=== PATIENT | female | born 1950 | race African-American/Black ===

== ENCOUNTER 2016-04-27 11:53 | Inpatient (IN) | payer MEDICARE, MEDICAID ==
[2016-04-27] MEDS ORDERED: NORMAL SALINE 1000 ML 1,000 ML IV ONE ×2 (12:36→15:04)
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
[2016-04-27 12:55] LABS: HEMATOCRIT 30.7 % (36.0-47.0); HEMOGLOBIN 9.6 g/dL (12.0-15.5); HGB HCT DIFFERENCE -1.9; MEAN CORPUSCULAR HEMOGLOBIN 22.1 pg (27.0-33.4); MEAN CORPUSCULAR HGB CONC 31.2 g/dL (32.0-36.0); MEAN CORPUSCULAR VOLUME 71 fl (80-97); RED BLOOD COUNT 4.34 10^6/uL (3.72-5.28); RED CELL DISTRIBUTION WIDTH 20.3 % (11.5-14.0); WHITE BLOOD COUNT 20.4 10^3/uL (4.0-10.5)
[2016-04-27 13:18] LABS: ALANINE AMINOTRANSFERASE 27 U/L (9-52); ALBUMIN 3.1 g/dL (3.5-5.0); ALKALINE PHOSPHATASE 179 U/L (38-126); ANION GAP 13 (5-19); ASPARTATE AMINO TRANSFERASE 28 U/L (14-36); BILIRUBIN,TOTAL 0.6 mg/dL (0.2-1.3); BLOOD UREA NITROGEN 19 mg/dL (7-20); CALCIUM 8.9 mg/dL (8.4-10.2); CARBON DIOXIDE 24 mmol/L (22-30); CHLORIDE 108 mmol/L (98-107); CREATINE KINASE 67 U/L (30-135); CREATININE RESULT 0.91 mg/dL (0.52-1.25); GLUCOSE 114 mg/dL (75-110); LIPASE 84.4 U/L (23-300); POTASSIUM 3.4 mmol/L (3.6-5.0); SODIUM 144.8 mmol/L (137-145); TOTAL PROTEIN 6.2 g/dL (6.3-8.2)
[2016-04-27 13:22] LABS: BAND NEUTROPHILS % (MANUAL) 1 % (3-5); BASOPHILS % (MANUAL) 0 % (0-2); EOSINOPHILS % (MANUAL) 0 % (0-6); LYMPHOCYTES % (MANUAL) 8 % (13-45); TOTAL CELLS COUNTED 100
[2016-04-27 13:25] LABS: ANISOCYTOSIS 1+; BURR CELLS SLIGHT; HYPOCHROMASIA 1+; MICROCYTOSIS 1+; OVALOCYTES SLIGHT; POIKILOCYTOSIS SLIGHT; POLYCHROMASIA SLIGHT; TARGET CELLS SLIGHT
[2016-04-27 13:26] LABS: CREATINE KINASE MB < 0.22 ng/mL (<4.55); TROPONIN I < 0.012 ng/mL
[2016-04-27] MEDS ORDERED: PIPERACILLIN/TAZOBACTAM 3.375 GM VIAL IV ONE ×2 (14:05→21:04)
[2016-04-27] MEDS ORDERED: POTASSIUM CHLORIDE 10 MEQ TABLET.SA PO ONE (14:28)
[2016-04-27 15:26] LABS: APPEARANCE,URINE CLOUDY; BILIRUBIN,URINE NEGATIVE (NEGATIVE); GLUCOSE, URINE NEGATIVE (NEGATIVE); KETONES,URINE TRACE mg/dL (NEGATIVE); LEUKOCYTE ESTERASE,URINE MODERATE (NEGATIVE); NITRITE,URINE POSITIVE (NEGATIVE); PROTEIN,URINE 30 mg/dL (NEGATIVE); URINE SPECIFIC GRAVITY 1.025
[2016-04-27] MEDS ORDERED: VANCOMYCIN HCL INJ 1000 MG VIAL IV ONE (15:48)
[2016-04-27] MEDS ORDERED: NORMAL SALINE 1000 ML 500 ML IV ONE (15:49)
[2016-04-27] MEDS ORDERED: MAG HYDROX/AL HYDROX/SIMETH SUSP 30 ML UDCUP PO PRN (16:30)
[2016-04-27] MEDS ORDERED: NORMAL SALINE 1000 ML 2,500 ML IV ONE (16:36)
[2016-04-27] MEDS ORDERED: IBUPROFEN 600 MG TABLET PO ONE (16:36)
[2016-04-27] MEDS ORDERED: PHARMACY COMMUNICATION ORDER MC NR (16:45)
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
[2016-04-27] MEDS: OXYBUTYNIN CHLORIDE 5 MG TABLET PO SCH (17:51)
[2016-04-27] MEDS: NORMAL SALINE 1000 ML 1,000 ML IV PRN (17:59)
[2016-04-27] MEDS: DOCUSATE SODIUM 100 MG CAPSULE PO SCH (18:01)
[2016-04-27 20:09] LABS: PARTIAL THROMBOPLASTIN TIME > 235.0 SEC (23.5-35.8); PROTHROMBIN TIME > 120.0 SEC (11.4-15.4)
[2016-04-27] MEDS: ONDANSETRON HCL INJ/PF 4 MG/2 ML SDV IV PRN (21:03)
[2016-04-27] MEDS: PIPERACILLIN SODIUM/TAZOBACTAM 3.375 GM in NORMAL SALINE 100 ML IV SCH (21:33)
[2016-04-27] MEDS ORDERED: WARFARIN SODIUM 5 MG TABLET PO SCH (22:00)
[2016-04-27] MEDS ORDERED: NORMAL SALINE 1000 ML 2,000 ML IV ONE (23:45)
[2016-04-28] MEDS: PIPERACILLIN SODIUM/TAZOBACTAM 3.375 GM in NORMAL SALINE 100 ML IV SCH (02:21)
[2016-04-28] MEDS: NORMAL SALINE 1000 ML 1,000 ML IV PRN ×3 (02:22→20:36)
[2016-04-28 04:59] LABS: ANION GAP 11 (5-19); BLOOD UREA NITROGEN 21 mg/dL (7-20); CALCIUM 7.3 mg/dL (8.4-10.2); CARBON DIOXIDE 19 mmol/L (22-30); CHLORIDE 116 mmol/L (98-107); CREATININE RESULT 1.17 mg/dL (0.52-1.25); GLUCOSE 119 mg/dL (75-110); SODIUM 145.8 mmol/L (137-145)
[2016-04-28 05:04] LABS: HEMATOCRIT 23.6 % (36.0-47.0); MEAN CORPUSCULAR HEMOGLOBIN 22.1 pg (27.0-33.4); MEAN CORPUSCULAR HGB CONC 30.7 g/dL (32.0-36.0); MEAN CORPUSCULAR VOLUME 72 fl (80-97); RED BLOOD COUNT 3.28 10^6/uL (3.72-5.28); RED CELL DISTRIBUTION WIDTH 19.8 % (11.5-14.0)
[2016-04-28 05:22] LABS: BASOPHILS % (MANUAL) 0 % (0-2); EOSINOPHILS % (MANUAL) 0 % (0-6); LYMPHOCYTES % (MANUAL) 1 % (13-45); TOTAL CELLS COUNTED 100
[2016-04-28 05:25] LABS: ANISOCYTOSIS 2+; HYPOCHROMASIA 1+; MICROCYTOSIS 1+; OVALOCYTES 1+; TOXIC GRANULATION SLIGHT; TOXIC VACUOLATION PRESENT
[2016-04-28 05:30] LABS: BAND NEUTROPHILS % (MANUAL) 13 % (3-5)
[2016-04-28 05:37] LABS: WHITE BLOOD COUNT 30.1 10^3/uL (4.0-10.5)
[2016-04-28 05:38] LABS: HEMOGLOBIN 7.2 g/dL (12.0-15.5); PROTHROMBIN TIME > 120.0 SEC (11.4-15.4)
[2016-04-28] MEDS ORDERED: NORMAL SALINE 1000 ML 1,000 ML IV SCH (06:00)
[2016-04-28] MEDS ORDERED: DEXTROSE 5%-WATER 250 ML with NOREPINEPHRINE BITARTRATE 4 MG IV PRN ×4 (06:01→07:34)
[2016-04-28] MEDS ORDERED: NOREPINEPHRINE BITARTRATE INJ/PF 4 MG/4 ML SDV IV ONE (06:22)
[2016-04-28] MEDS ORDERED: PHYTONADIONE INJ 10 MG/1 ML AMPULE SUBCUT ONE (07:31)
[2016-04-28] MEDS ORDERED: VANCOMYCIN HCL 0 MG in DEXTROSE 5%-WATER 250 ML IV NR (07:45)
[2016-04-28] MEDS ORDERED: NORMAL SALINE 250 ML IV PRN ×2 (07:54)
[2016-04-28] MEDS ORDERED: NORMAL SALINE 1000 ML 2,000 ML IV ONE (07:55)
[2016-04-28] MEDS: ONDANSETRON 4 MG TAB.RAPDIS PO PRN ×2 (08:14→20:34)
--- NOTE | 2016-04-28 08:24 | EKG REPORT ---
SEVERITY:- BORDERLINE ECG - SINUS TACHYCARDIA ATRIAL PREMATURE COMPLEX BORDERLINE PROLONGED QT INTERVAL : Confirmed by: Trevor Phillip 28-Apr-2016 08:23:39
[2016-04-28] MEDS: OXYBUTYNIN CHLORIDE 5 MG TABLET PO SCH ×2 (09:45→17:49)
[2016-04-28] MEDS: DOCUSATE SODIUM 100 MG CAPSULE PO SCH ×2 (09:45→17:49)
[2016-04-28] MEDS: BACLOFEN 10 MG TABLET PO SCH (09:45)
[2016-04-28] MEDS: ALBUMIN HUMAN 50 ML IV SCH ×4 (09:46→13:18)
[2016-04-28] MEDS ORDERED: DILTIAZEM HCL 120 MG CAP.SR.24H PO SCH (10:00)
[2016-04-28] MEDS: DORIPENEM 500 MG in NORMAL SALINE 100 ML IV SCH ×2 (10:20→17:49)
--- NOTE | 2016-04-28 11:40 | Operative Report ---
Operative Report DATE OF SURGERY: 04/28/16 Operative Report: PROCEDURE DESCRIPTION: After obtaining an informed consent, the patient was placed in the Trendelenburg position with the head turned 30 degrees away from the insertion site. The skin was thoroughly prepped with chlorhexidine and allowed to dry. I was shielded with a hairnet, facemask, sterile gown, and with sterile gloves. The right neck area was prepped and draped with a large disposable sterile shield provided in the pre-manufactured kit. The skin and subcutaneous tissue superficial to the right internal jugular vein was anesthetized using 1% lidocaine. Internal jugular vein was identified on ultrasound from angle of the mandible down to the supraclavicular fossa using linear ultrasound probe in the transverse orientation. The carotid artery was identified and avoided utilizing color flow. The internal jugular vein is then placed in the center of the ultrasound field and compressed for patency. Movement artifact was identified as the needle was advanced through the skin and advanced towards the vessel. The visualization of the vascular needle entry into the lumen was achieved as the blood was noted to flush back into the syringe. The needle was then held in place while the guidewire was advanced. The needle was then removed. An ultrasound image of the guidewire inside the vein showed appropriate insertion. Skin dilator was advanced over the guidewire and removed. The triple-lumen catheter was inserted over the guidewire into the proper position and the guidewire was removed and discarded. All ports were aspirated which showed good blood return and then carefully flushed with normal saline. The catheter was stabilized and sutured into skin with 2-0 silk suture and sterile Bioclusive dressing was placed over the catheter including the insertion site. The patient tolerated the procedure. Chest x-ray is ordered for position confirmation. PREOPERATIVE DIAGNOSIS: 1sepsis due to urinary tract infection. 2difficult IV access. POSTOPERATIVE DIAGNOSIS: Same OPERATION: Right internal jugular triple-lumen central line insertion, ultrasound-guided. SURGEON: SUDEEP EDWARDS ANESTHESIA: Local TISSUE REMOVED OR ALTERED: None COMPLICATIONS: None ESTIMATED BLOOD LOSS: 5 mL INTRAOPERATIVE FINDINGS: See detailed report
[2016-04-28] MEDS: DILTIAZEM HCL 30 MG TABLET PO SCH ×3 (13:17→22:49)
[2016-04-28] MEDS: VANCOMYCIN HCL 1,250 MG in DEXTROSE 5%-WATER 250 ML IV SCH (13:17)
--- NOTE | 2016-04-28 17:02 | PDOC PROGRESS REPORT ---
Subjective Progress Note for:: 04/28/16 Subjective:: Patient transition to the ICU for need for pressors. Patient denies chest pain , shortness of breath, abdominal pain, nausea, vomiting, fevers, chills, diarrhea, constipation, headache, new onset weakness. Physical Exam Vital Signs: Temp Pulse Resp BP Pulse Ox 98.0 F 90 20 86/48 L 100 04/28/16 03:24 04/28/16 03:24 04/28/16 03:24 04/28/16 03:24 04/28/16 03:24 Intake & Output 04/27/16 04/28/16 04/29/16 06:59 06:59 06:59 Intake Total 4655 Output Total 575 Balance 4080 Weight 91.8 kg Exam: General: Awake alert and orientedx3, no acute respiratory distress HEENT: AT/NC, PERRL, EOMI, oropharynx is moist, pink, no scleral icterus, no conjunctival injection Neck: No JVD, trachea midline Chest: Clear to auscultation bilaterally, no wheezes rhonchi or rales CV: Regular rate and rhythm, normal S1 and S2, no murmur, rub, or gallop Abdomen: Soft, nontender to palpation, nondistended, active bowel sounds; no rebound, rigidity, or guarding Extremities: No cyanosis, clubbing or edema Neuro: Cranial nerves II through XII are grossly intact without focal deficits; awake alert and oriented x3 Psych: Normal mood and affect Results Laboratory Results: 04/28/16 04:13 04/28/16 04:13 04/28/16 04/28/16 04:13 04:13 WBC 30.1 H* RBC 3.28 L Hgb 7.2 L D Hct 23.6 L MCV 72 L MCH 22.1 L MCHC 30.7 L RDW 19.8 H Plt Count 315 Seg Neutrophils % Not Reportable Lymphocytes % Not Reportable Monocytes % Not Reportable Eosinophils % Not Reportable Basophils % Not Reportable Absolute Neutrophils Not Reportable Absolute Lymphocytes Not Reportable Absolute Monocytes Not Reportable Absolute Eosinophils Not Reportable Absolute Basophils Not Reportable Sodium 145.8 H Potassium 4.0 Chloride 116 H Carbon Dioxide 19 L Anion Gap 11 BUN 21 H Creatinine 1.17 Est GFR ( Amer) 56 L Est GFR (Non-Af Amer) 46 L Glucose 119 H Calcium 7.3 L Impressions: Chest X-Ray 04/28/16 00:00 IMPRESSION: NO ACUTE RADIOGRAPHIC FINDING IN THE CHEST. Assessment & Plan - Diagnosis (1) Septic shock Is this a current diagnosis for this admission?: YesPlan: Patient has briefly required levophed today for her. Will give patient additional IV fluids and blood which will likely help her. We'll temporize with albumin. (2) Coagulopathy Is this a current diagnosis for this admission?: YesPlan: We'll send FDP and fibrinogen as well as LDH and haptoglobin to workup possible DIC. Give patient subcutaneous vitamin K. Will occult blood her stool. Transfuse patient 1 unit of packed red blood cells and type and screen. (3) Complicated UTI (urinary tract infection) Is this a current diagnosis for this admission?: YesPlan: Patient has urinary tract infection secondary to chronic indwelling suprapubic catheter. Based on previous sensitivities, will empirically start patient on Doribax and vancomycin. Patient with gram-negative rods in the urine and blood. (4) Atrial fibrillation Qualifiers: Atrial fibrillation type: paroxysmal Qualified Code(s): I48.0 - Paroxysmal atrial fibrillation Is this a current diagnosis for this admission?: YesPlan: Currently in sinus rhythm. Continue diltiazem and warfarin. (5) Chronic anticoagulation Is this a current diagnosis for this admission?: YesPlan: Hold warfarin secondary to coagulopathy (6) Hypertension Is this a current diagnosis for this admission?: NoPlan: Currently hypotensive. (7) Iron deficiency anemia Is this a current diagnosis for this admission?: YesPlan: Patient's anemia secondary to iron deficiency, anemia chronic disease, and currently also to delutional anemia. Will give patient 1 unit of packed red blood cells as her hemoglobin is currently below 8. (8) Paraplegia Is this a current diagnosis for this admission?: Yes (9) Sacral decubitus ulcer, stage IV Is this a current diagnosis for this admission?: Yes (10) Full code status Is this a current diagnosis for this admission?: Yes - Time Critical Time spent with patient: 35 or more minutes Medications reviewed and adjusted accordingly: Yes
[2016-04-28] MEDS ORDERED: FUROSEMIDE 20 MG TABLET PO ONE (18:42)
[2016-04-28] MEDS ORDERED: SILVER SULFADIAZINE 1% CREAM 25 GM TP ONE (19:15)
[2016-04-28] MEDS: NORMAL SALINE INJ/PF 0.9% 10 ML SDV IV PRN (20:44)
[2016-04-28 21:39] LABS: HEMATOCRIT 22.1 % (36.0-47.0); HGB HCT DIFFERENCE -0.5; MEAN CORPUSCULAR HEMOGLOBIN 23.8 pg (27.0-33.4); MEAN CORPUSCULAR HGB CONC 32.5 g/dL (32.0-36.0); MEAN CORPUSCULAR VOLUME 73 fl (80-97); RED BLOOD COUNT 3.02 10^6/uL (3.72-5.28); RED CELL DISTRIBUTION WIDTH 20.5 % (11.5-14.0); WHITE BLOOD COUNT 20.7 10^3/uL (4.0-10.5)
[2016-04-28 22:17] LABS: HEMOGLOBIN 7.2 g/dL (12.0-15.5)
[2016-04-29] MEDS ORDERED: DILTIAZEM HCL INJ 25 MG/5 ML VIAL ONE (00:07)
[2016-04-29] MEDS: DILTIAZEM HCL 30 MG TABLET PO SCH ×3 (00:10→18:43)
[2016-04-29] MEDS: NORMAL SALINE 1000 ML 1,000 ML IV PRN ×2 (00:11→23:10)
[2016-04-29] MEDS: ACETAMINOPHEN 325 MG TABLET PO PRN ×2 (00:18→20:03)
[2016-04-29] MEDS ORDERED: DILTIAZEM HCL INJ 25 MG/5 ML VIAL IV ONE (00:45)
[2016-04-29] MEDS ORDERED: DILTIAZEM HCL 30 MG TABLET PO ONE (00:45)
[2016-04-29] MEDS: DORIPENEM 500 MG in NORMAL SALINE 100 ML IV SCH ×3 (01:39→18:55)
[2016-04-29] MEDS: NORMAL SALINE INJ/PF 0.9% 10 ML SDV IV PRN (06:01)
[2016-04-29 06:46] LABS: APPEARANCE,URINE TURBID; BILIRUBIN,URINE NEGATIVE (NEGATIVE); GLUCOSE, URINE NEGATIVE (NEGATIVE); KETONES,URINE NEGATIVE (NEGATIVE); LEUKOCYTE ESTERASE,URINE LARGE (NEGATIVE); NITRITE,URINE NEGATIVE (NEGATIVE); PROTEIN,URINE 100 mg/dL (NEGATIVE); URINE SPECIFIC GRAVITY 1.014
[2016-04-29 06:48] LABS: ABSOLUTE LYMPHOCYTES (AUTO) 1.5 10^3/uL (0.5-4.7); ABSOLUTE MONOCYTES (AUTO) 0.8 10^3/uL (0.1-1.4); ABSOLUTE NEUT (AUTO) 13.1 10^3/uL (1.7-8.2); BASOPHILS % (AUTO) 0.2 % (0-2); EOSINOPHILS % (AUTO) 0.3 % (0-6); HEMATOCRIT 19.4 % (36.0-47.0); HGB HCT DIFFERENCE -0.8; LYMPHOCYTES % (AUTO) 9.8 % (13-45); MEAN CORPUSCULAR HGB CONC 31.9 g/dL (32.0-36.0); MEAN CORPUSCULAR VOLUME 72 fl (80-97); MONOCYTES % (AUTO) 5.4 % (3-13); RED CELL DISTRIBUTION WIDTH 20.5 % (11.5-14.0); SEGMENTED NEUTROPHILS % (AUTO) 84.3 % (42-78); WHITE BLOOD COUNT 15.5 10^3/uL (4.0-10.5)
[2016-04-29 06:50] LABS: HEMOGLOBIN 6.2 g/dL (12.0-15.5)
[2016-04-29 07:19] LABS: PROTHROMBIN TIME > 120.0 SEC (11.4-15.4)
[2016-04-29 07:22] LABS: ANION GAP 10 (5-19); BLOOD UREA NITROGEN 21 mg/dL (7-20); CALCIUM 7.9 mg/dL (8.4-10.2); CARBON DIOXIDE 18 mmol/L (22-30); CHLORIDE 119 mmol/L (98-107); CREATININE RESULT 0.89 mg/dL (0.52-1.25); GLUCOSE 93 mg/dL (75-110); SODIUM 146.5 mmol/L (137-145)
[2016-04-29 07:27] LABS: POTASSIUM 4.1 mmol/L (3.6-5.0)
[2016-04-29] MEDS ORDERED: PHYTONADIONE INJ 10 MG/1 ML AMPULE SUBCUT ONE (08:19)
[2016-04-29] MEDS ORDERED: FUROSEMIDE INJ/PF 20 MG/2 ML SDV IV PRN (08:20)
[2016-04-29] MEDS: ACETIC ACID 3% SOLN 473 ML TOP SCH (10:26)
[2016-04-29] MEDS: OXYBUTYNIN CHLORIDE 5 MG TABLET PO SCH ×2 (10:26→18:43)
[2016-04-29] MEDS: BACLOFEN 10 MG TABLET PO SCH (10:26)
[2016-04-29] MEDS: DOCUSATE SODIUM 100 MG CAPSULE PO SCH ×2 (10:27→18:43)
[2016-04-29] MEDS: SILVER SULFADIAZINE 1% CREAM 25 GM TP SCH (10:27)
[2016-04-29] MEDS: VANCOMYCIN HCL 1,250 MG in DEXTROSE 5%-WATER 250 ML IV SCH (12:36)
[2016-04-29] MEDS ORDERED: BISACODYL 10 MG SUPP.RECT PR PRN (14:14)
[2016-04-29] MEDS ORDERED: BISACODYL 10 MG SUPP.RECT PR ONE (14:14)
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
[2016-04-29 17:04] LABS: ABSOLUTE EOSINOPHILS # (AUTO) 0.1 10^3/uL (0.0-0.6); ABSOLUTE NEUT (AUTO) 13.1 10^3/uL (1.7-8.2); WHITE BLOOD COUNT 15.5 10^3/uL (4.0-10.5)
[2016-04-29 17:21] LABS: ABSOLUTE BASOPHILS # (AUTO) 0.1 10^3/uL (0.0-0.2); ABSOLUTE LYMPHOCYTES (AUTO) 1.5 10^3/uL (0.5-4.7); ABSOLUTE MONOCYTES (AUTO) 0.7 10^3/uL (0.1-1.4); BASOPHILS % (AUTO) 0.5 % (0-2); EOSINOPHILS % (AUTO) 0.8 % (0-6); HGB HCT DIFFERENCE -0.3; LYMPHOCYTES % (AUTO) 9.5 % (13-45); MEAN CORPUSCULAR HEMOGLOBIN 25.1 pg (27.0-33.4); MEAN CORPUSCULAR HGB CONC 33.2 g/dL (32.0-36.0); MONOCYTES % (AUTO) 4.4 % (3-13); RED BLOOD COUNT 3.56 10^6/uL (3.72-5.28); RED CELL DISTRIBUTION WIDTH 21.6 % (11.5-14.0); SEGMENTED NEUTROPHILS % (AUTO) 84.8 % (42-78)
[2016-04-29 17:26] LABS: HEMOGLOBIN 8.9 g/dL (12.0-15.5)
[2016-04-29 17:27] LABS: MEAN CORPUSCULAR VOLUME 76 fl (80-97)
[2016-04-29] MEDS: METOPROLOL TARTRATE PF/INJ 5 MG/5 ML SDV IV PRN (18:55)
[2016-04-30] MEDS: DILTIAZEM HCL 30 MG TABLET PO SCH ×4 (01:14→17:20)
[2016-04-30] MEDS: DORIPENEM 500 MG in NORMAL SALINE 100 ML IV SCH (02:42)
[2016-04-30 07:15] LABS: ABSOLUTE BASOPHILS # (AUTO) 0.1 10^3/uL (0.0-0.2); ABSOLUTE EOSINOPHILS # (AUTO) 0.1 10^3/uL (0.0-0.6); ABSOLUTE LYMPHOCYTES (AUTO) 1.3 10^3/uL (0.5-4.7); ABSOLUTE MONOCYTES (AUTO) 0.8 10^3/uL (0.1-1.4); ABSOLUTE NEUT (AUTO) 9.7 10^3/uL (1.7-8.2); BASOPHILS % (AUTO) 0.6 % (0-2); EOSINOPHILS % (AUTO) 0.8 % (0-6); HEMATOCRIT 24.7 % (36.0-47.0); HEMOGLOBIN 8.3 g/dL (12.0-15.5); HGB HCT DIFFERENCE 0.2; LYMPHOCYTES % (AUTO) 11.2 % (13-45); MEAN CORPUSCULAR HEMOGLOBIN 25.2 pg (27.0-33.4); MEAN CORPUSCULAR HGB CONC 33.5 g/dL (32.0-36.0); MEAN CORPUSCULAR VOLUME 75 fl (80-97); MONOCYTES % (AUTO) 6.5 % (3-13); RED CELL DISTRIBUTION WIDTH 22.2 % (11.5-14.0); SEGMENTED NEUTROPHILS % (AUTO) 80.9 % (42-78); WHITE BLOOD COUNT 11.9 10^3/uL (4.0-10.5)
[2016-04-30 07:51] LABS: ANION GAP 8 (5-19); BLOOD UREA NITROGEN 19 mg/dL (7-20); CALCIUM 8.3 mg/dL (8.4-10.2); CARBON DIOXIDE 20 mmol/L (22-30); CHLORIDE 117 mmol/L (98-107); CREATININE RESULT 0.63 mg/dL (0.52-1.25); GLUCOSE 73 mg/dL (75-110); POTASSIUM 4.2 mmol/L (3.6-5.0); SODIUM 145.1 mmol/L (137-145)
[2016-04-30] MEDS: OXYBUTYNIN CHLORIDE 5 MG TABLET PO SCH ×2 (09:26→17:20)
[2016-04-30] MEDS: LEVOFLOXACIN 750 MG TABLET PO SCH (09:26)
[2016-04-30] MEDS: BACLOFEN 10 MG TABLET PO SCH (09:26)
[2016-04-30] MEDS: DOCUSATE SODIUM 100 MG CAPSULE PO SCH ×2 (09:26→17:20)
--- NOTE | 2016-04-30 09:30 | PDOC PROGRESS REPORT ---
Subjective Progress Note for:: 04/30/16 Subjective:: Patient has no complaints. She has had no bleeding issues. Patient denies fever , chills, headache, new focal weakness, chest pain, shortness of breath, abdominal pain, nausea, vomiting, diarrhea, constipation. Physical Exam Vital Signs: Temp Pulse Resp BP Pulse Ox 98.2 F 94 20 118/57 L 97 04/30/16 03:40 04/30/16 07:00 04/30/16 03:40 04/30/16 03:40 04/30/16 03:40 Intake & Output 04/29/16 04/30/16 05/01/16 06:59 06:59 06:59 Intake Total 5487 2157 300 Output Total 1445 3100 Balance 4042 -943 300 Weight 92.1 kg 98.9 kg GENERAL: No acute distress HEENT: Conjunctiva clear, nonicteric, moist mucous membranes, no JVD, midline trachea RESPIRATORY: Clear to auscultation bilaterally, no wheezes, no rhonchi CARDIAC: Irregularly irregular ABDOMEN: Soft, nondistended, nontender, positive bowel sounds, no rebound, no guarding. Suprapubic catheter EXTREMETIES: No edema, cyanosis, clubbing NEUROLOGIC: Alert, oriented to person/place/time, CN's grossly intact, paraplegia SKIN: No rash, wounds PSYCH: Normal mood, normal affect Results Laboratory Results: 04/30/16 06:30 04/30/16 05:55 04/28/16 04/29/16 04/30/16 08:17 16:45 05:55 WBC 15.5 H RBC 3.56 L Hgb 8.9 L D Hct 27.0 L MCV 76 L D MCH 25.1 L MCHC 33.2 RDW 21.6 H Plt Count 199 Seg Neutrophils % 84.8 H Lymphocytes % 9.5 L Monocytes % 4.4 Eosinophils % 0.8 Basophils % 0.5 Absolute Neutrophils 13.1 H Absolute Lymphocytes 1.5 Absolute Monocytes 0.7 Absolute Eosinophils 0.1 Absolute Basophils 0.1 Sodium 145.1 H Potassium 4.2 Chloride 117 H Carbon Dioxide 20 L Anion Gap 8 BUN 19 Creatinine 0.63 Est GFR ( Amer) > 60 Est GFR (Non-Af Amer) > 60 Glucose 73 L Calcium 8.3 L Blood Type B POSITIVE Antibody Screen NEGATIVE 04/30/16 06:30 WBC 11.9 H RBC 3.30 L Hgb 8.3 L Hct 24.7 L MCV 75 L MCH 25.2 L MCHC 33.5 RDW 22.2 H Plt Count 198 Seg Neutrophils % 80.9 H Lymphocytes % 11.2 L Monocytes % 6.5 Eosinophils % 0.8 Basophils % 0.6 Absolute Neutrophils 9.7 H Absolute Lymphocytes 1.3 Absolute Monocytes 0.8 Absolute Eosinophils 0.1 Absolute Basophils 0.1 Sodium Potassium Chloride Carbon Dioxide Anion Gap BUN Creatinine Est GFR ( Amer) Est GFR (Non-Af Amer) Glucose Calcium Blood Type Antibody Screen Impressions: Chest X-Ray 04/28/16 11:23 IMPRESSION: Appropriate right IJ line. No complication. Stable chest otherwise. Assessment & Plan - Diagnosis (1) Sepsis Qualifiers: Sepsis type: sepsis due to unspecified organism Qualified Code(s): A41.9 - Sepsis, unspecified organism Is this a current diagnosis for this admission?: YesPlan: Patient is afebrile and hemodynamically stable. Continue to treat urinary tract infection/bacteremia. (2) Complicated UTI (urinary tract infection) Is this a current diagnosis for this admission?: YesPlan: Patient has urinary tract infection complicated by chronic suprapubic catheter. Blood cultures are growing Klebsiella sensitive to Levaquin. His continue doripenem and start patient on oral Levaquin. (3) Coagulopathy Is this a current diagnosis for this admission?: YesPlan: Continue to hold Coumadin. Repeat PT/INR today. (4) Atrial fibrillation Qualifiers: Atrial fibrillation type: paroxysmal Qualified Code(s): I48.0 - Paroxysmal atrial fibrillation Is this a current diagnosis for this admission?: YesPlan: Continue Cardizem. Continue to hold Coumadin secondary to coagulopathy. (5) Hypertension Is this a current diagnosis for this admission?: Yes (6) Iron deficiency anemia Is this a current diagnosis for this admission?: YesPlan: Patient is status post 3 units PRBC this admission. Continue to monitor H&H for stability in light of coagulopathy. (7) Sacral decubitus ulcer, stage IV Is this a current diagnosis for this admission?: Yes (8) Paraplegia Is this a current diagnosis for this admission?: YesPlan: Continue supportive care. Patient normally resides at home with home health services. (9) Full code status Is this a current diagnosis for this admission?: Yes - Time Time Spent with patient: 35 or more minutes Anticipated discharge: Home with Homehealth Within: within 72 hours
[2016-04-30] MEDS: ACETIC ACID 3% SOLN 473 ML TOP SCH (09:31)
[2016-04-30] MEDS: SILVER SULFADIAZINE 1% CREAM 25 GM TP SCH (09:31)
[2016-04-30] MEDS ORDERED: NORMAL SALINE 250 ML IV PRN ×2 (11:04)
--- NOTE | 2016-04-30 11:10 | Progress Note ---
Provider Note Provider Note: ADDENDUM: 1. Coagulopathy- Give FFP. Consult Dr. Partida. Holding Coumadin.
[2016-04-30 11:41] LABS: PATH REVIEW PATHOLOGIST REVIEWED
[2016-04-30] MEDS ORDERED: PHYTONADIONE INJ 10 MG/1 ML AMPULE SUBCUT ONE (17:30)
--- NOTE | 2016-04-30 18:33 | CONSULTATION REPORT E ---
Consultation Report NAME: JAMEL PHILLIPS : 1950 AGE: 66Y DATE: 04/30/2016 306 A TO: NILSA CRUZ M.D. FROM: ISABEL BRODY M.D. Requesting Physician REASON FOR REFERRAL: Coagulopathy. CONSULTATION REPORT: The patient is a 66-year-old woman who is a paraplegic, lives at home with the help of home health aide. She does have decubitus ulcers. She was admitted with possible septicemia; blood cultures had grown Klebsiella. She was started on antibiotics. She was on Coumadin at home. On admission, it was noted that her PT was excessively prolonged. PTT was also abnormal. Haptoglobin was elevated. Fibrinogen was normal. Her platelet count is normal. She does have some hematuria but no petechiae or noticeable blood in her stool. She had been on Coumadin for years, and her INR has been well regulated and controlled on her dose of Coumadin. PAST MEDICAL HISTORY: 1. History of atrial fibrillation on Coumadin. 2. Paraplegia. 3. High blood pressure. 4. Iron deficiency. 5. Sacral decubitus ulcer. PHYSICAL EXAMINATION: GENERAL: On exam, she is an elderly woman. She is not acutely ill looking. She is alert and oriented x3. DIAGNOSTIC TESTS: Her labs from 04/30/2016: White count 11.9; hemoglobin is 8.3; platelet count is 198. PT on admission was greater than 120, and her PTT was 235. Today, 04/30/2016, PTT remains elevated at 187.9; her PT is greater than 120. Her sodium 145, BUN 19, creatinine 0.6. LDH 814. Haptoglobin 274. Fibrinogen 520. FDP less than 10. IMPRESSION AND PLAN: The patient is a 66-year-old who presents in the setting of possible sepsis with excessively elevated PT and PTT in the setting of a normal fibrinogen and FDP. She has a coagulopathy. She had received vitamin K 10 mg on admission; it will be repeated today. In addition, she will require additional coagulation workup that the lab at [facility] may not be able to turn around in a timely fashion. Mixing studies would be the next test to do to rule out the presence of an inhibitor. It will be important to have this test done to assess her risk of bleeding vessels with cough, thrombosis. I explained the lab results to the patient. I explained that additional testing that will be required to figure out the abnormality causing the prolonged PT, PTT was not available locally and she would need to be transferred. This was discussed with the hospitalist. I thank you for this consultation and allowing me to be part of her care. DICTATING PHYSICIAN: NILSA CRUZ M.D. [id number] PHY#: [id number] ID: [id number] JOB#: [id number] ACCT: [id number] cc:NILSA CRUZ M.D. >
[2016-04-30 20:40] LABS: ABSOLUTE EOSINOPHILS # (AUTO) 0.1 10^3/uL (0.0-0.6); ABSOLUTE LYMPHOCYTES (AUTO) 1.1 10^3/uL (0.5-4.7); ABSOLUTE MONOCYTES (AUTO) 0.7 10^3/uL (0.1-1.4); ABSOLUTE NEUT (AUTO) 6.4 10^3/uL (1.7-8.2); BASOPHILS % (AUTO) 0.4 % (0-2); HEMATOCRIT 23.9 % (36.0-47.0); HGB HCT DIFFERENCE 0.1; LYMPHOCYTES % (AUTO) 13.6 % (13-45); MEAN CORPUSCULAR HEMOGLOBIN 25.4 pg (27.0-33.4); MEAN CORPUSCULAR HGB CONC 33.6 g/dL (32.0-36.0); MEAN CORPUSCULAR VOLUME 76 fl (80-97); MONOCYTES % (AUTO) 8.7 % (3-13); RED BLOOD COUNT 3.16 10^6/uL (3.72-5.28); RED CELL DISTRIBUTION WIDTH 21.9 % (11.5-14.0); SEGMENTED NEUTROPHILS % (AUTO) 76.3 % (42-78); WHITE BLOOD COUNT 8.4 10^3/uL (4.0-10.5)
[2016-05-01] MEDS: DILTIAZEM HCL 30 MG TABLET PO SCH ×2 (00:33→05:25)
[2016-05-01] MEDS: ACETAMINOPHEN 325 MG TABLET PO PRN ×2 (00:34→16:03)
[2016-05-01] MEDS: METOPROLOL TARTRATE PF/INJ 5 MG/5 ML SDV IV PRN ×3 (01:18→14:51)
[2016-05-01 07:46] LABS: ABSOLUTE BASOPHILS # (AUTO) 0.1 10^3/uL (0.0-0.2); ABSOLUTE EOSINOPHILS # (AUTO) 0.1 10^3/uL (0.0-0.6); ABSOLUTE LYMPHOCYTES (AUTO) 1.5 10^3/uL (0.5-4.7); ABSOLUTE MONOCYTES (AUTO) 1.1 10^3/uL (0.1-1.4); ABSOLUTE NEUT (AUTO) 5.1 10^3/uL (1.7-8.2); BASOPHILS % (AUTO) 0.7 % (0-2); EOSINOPHILS % (AUTO) 0.9 % (0-6); HEMATOCRIT 26.8 % (36.0-47.0); HEMOGLOBIN 8.9 g/dL (12.0-15.5); HGB HCT DIFFERENCE -0.1; LYMPHOCYTES % (AUTO) 18.9 % (13-45); MEAN CORPUSCULAR HEMOGLOBIN 25.3 pg (27.0-33.4); MEAN CORPUSCULAR HGB CONC 33.1 g/dL (32.0-36.0); MEAN CORPUSCULAR VOLUME 76 fl (80-97); RED BLOOD COUNT 3.51 10^6/uL (3.72-5.28); RED CELL DISTRIBUTION WIDTH 22.3 % (11.5-14.0); SEGMENTED NEUTROPHILS % (AUTO) 65.5 % (42-78); WHITE BLOOD COUNT 7.7 10^3/uL (4.0-10.5)
[2016-05-01 07:48] LABS: ANION GAP 12 (5-19); BLOOD UREA NITROGEN 12 mg/dL (7-20); CALCIUM 8.9 mg/dL (8.4-10.2); CARBON DIOXIDE 22 mmol/L (22-30); CHLORIDE 111 mmol/L (98-107); CREATININE RESULT 0.54 mg/dL (0.52-1.25); GLUCOSE 81 mg/dL (75-110); POTASSIUM 3.9 mmol/L (3.6-5.0); SODIUM 145.3 mmol/L (137-145)
[2016-05-01 08:21] LABS: PROTHROMBIN TIME 22.7 SEC (11.4-15.4)
[2016-05-01] MEDS: DOCUSATE SODIUM 100 MG CAPSULE PO SCH ×2 (09:20→17:30)
[2016-05-01] MEDS: BACLOFEN 10 MG TABLET PO SCH (09:20)
[2016-05-01] MEDS: LEVOFLOXACIN 750 MG TABLET PO SCH (09:20)
[2016-05-01] MEDS: OXYBUTYNIN CHLORIDE 5 MG TABLET PO SCH ×2 (09:20→17:30)
--- NOTE | 2016-05-01 10:19 | PDOC PROGRESS REPORT ---
Subjective Progress Note for:: 05/01/16 Subjective:: Patient has no complaints. She has had no bleeding issues. Patient denies fever , chills, headache, new focal weakness, chest pain, shortness of breath, abdominal pain, nausea, vomiting, diarrhea, constipation. Physical Exam Vital Signs: Temp Pulse Resp BP Pulse Ox 98.1 F 118 H 19 144/83 H 96 05/01/16 07:57 05/01/16 07:57 05/01/16 07:57 05/01/16 07:57 05/01/16 07:57 Intake & Output 04/30/16 05/01/16 05/02/16 06:59 06:59 06:59 Intake Total 3134 2870 Output Total 4300 4800 Balance -1166 -1930 Weight 98.9 kg 93.9 kg GENERAL: No acute distress HEENT: Conjunctiva clear, nonicteric, moist mucous membranes, no JVD, midline trachea RESPIRATORY: Clear to auscultation bilaterally, no wheezes, no rhonchi CARDIAC: Irregularly irregular ABDOMEN: Soft, nondistended, nontender, positive bowel sounds, no rebound, no guarding. Suprapubic catheter EXTREMETIES: No edema, cyanosis, clubbing NEUROLOGIC: Alert, oriented to person/place/time, CN's grossly intact, paraplegia SKIN: No rash, wounds PSYCH: Normal mood, normal affect Results Laboratory Results: 05/01/16 05:30 05/01/16 05:30 04/28/16 04/28/16 04/30/16 04:13 08:17 20:30 WBC 30.1 H* 8.4 RBC 3.28 L 3.16 L Hgb 7.2 L D 8.0 L Hct 23.6 L 23.9 L MCV 72 L 76 L MCH 22.1 L 25.4 L MCHC 30.7 L 33.6 RDW 19.8 H 21.9 H Plt Count 315 189 Seg Neutrophils % 76.3 Lymphocytes % 13.6 Monocytes % 8.7 Eosinophils % 1.0 Basophils % 0.4 Absolute Neutrophils 6.4 Absolute Lymphocytes 1.1 Absolute Monocytes 0.7 Absolute Eosinophils 0.1 Absolute Basophils 0.0 Sodium Potassium Chloride Carbon Dioxide Anion Gap BUN Creatinine Est GFR ( Amer) Est GFR (Non-Af Amer) Glucose Calcium Blood Type B POSITIVE Antibody Screen NEGATIVE 05/01/16 05/01/16 05:30 05:30 WBC 7.7 RBC 3.51 L Hgb 8.9 L Hct 26.8 L MCV 76 L MCH 25.3 L MCHC 33.1 RDW 22.3 H Plt Count 226 Seg Neutrophils % 65.5 Lymphocytes % 18.9 Monocytes % 14.0 H Eosinophils % 0.9 Basophils % 0.7 Absolute Neutrophils 5.1 Absolute Lymphocytes 1.5 Absolute Monocytes 1.1 Absolute Eosinophils 0.1 Absolute Basophils 0.1 Sodium 145.3 H Potassium 3.9 Chloride 111 H Carbon Dioxide 22 Anion Gap 12 BUN 12 Creatinine 0.54 Est GFR ( Amer) > 60 Est GFR (Non-Af Amer) > 60 Glucose 81 Calcium 8.9 Blood Type Antibody Screen 04/29/16 22:00 Nasophary (Mrsa Only) MRSA Surveillance Culture - Final NO MRSA RECOVERED Impressions: Chest X-Ray 04/28/16 11:23 IMPRESSION: Appropriate right IJ line. No complication. Stable chest otherwise. Assessment & Plan - Diagnosis (1) Sepsis Qualifiers: Sepsis type: sepsis due to unspecified organism Qualified Code(s): A41.9 - Sepsis, unspecified organism Is this a current diagnosis for this admission?: YesPlan: Patient is afebrile and hemodynamically stable. Continue to treat urinary tract infection/bacteremia. (2) Complicated UTI (urinary tract infection) Is this a current diagnosis for this admission?: YesPlan: Patient has urinary tract infection complicated by chronic suprapubic catheter. Blood cultures are growing Klebsiella sensitive to Levaquin. Continue Levaquin. (3) Coagulopathy Is this a current diagnosis for this admission?: YesPlan: Coumadin discontinued. Coagulopathy corrected with FFP and vitamin K. After a long discussion with patient regarding risk/benefit/alternative to Coumadin patient has decided not to resume Coumadin and to allow me to initiate anticoagulation with Eliquis instead. I think given the fact that she has recurrent urinary infections requiring her to be on and off antibiotics this may be a better option as it poses fewer drug-drug interactions. (4) Atrial fibrillation Qualifiers: Atrial fibrillation type: paroxysmal Qualified Code(s): I48.0 - Paroxysmal atrial fibrillation Is this a current diagnosis for this admission?: YesPlan: Discontinue Cardizem 30 mg IR. Start Cardizem CD 180 mg daily. Coumadin discontinued secondary to coagulopathy. Patient's echocardiogram last year shows no valvular heart disease. I will start patient on Eliquis 5 mg twice daily. (5) Hypertension Is this a current diagnosis for this admission?: Yes (6) Iron deficiency anemia Is this a current diagnosis for this admission?: YesPlan: Patient is status post 3 units PRBC this admission. Continue to monitor H&H for stability in light of coagulopathy/anticoagulation. (7) Sacral decubitus ulcer, stage IV Is this a current diagnosis for this admission?: Yes (8) Paraplegia Is this a current diagnosis for this admission?: YesPlan: Continue supportive care. Patient normally resides at home with home health services. (9) Full code status Is this a current diagnosis for this admission?: Yes - Time Time Spent with patient: 35 or more minutes
[2016-05-01] MEDS: SILVER SULFADIAZINE 1% CREAM 25 GM TP SCH ×2 (10:52→11:00)
[2016-05-01] MEDS: ACETIC ACID 3% SOLN 473 ML TOP SCH ×2 (10:52→11:00)
[2016-05-01] MEDS ORDERED: DILTIAZEM HCL 180 MG CAPSULE.CR PO ONE (11:00)
[2016-05-01 13:30] LABS: APPEARANCE,URINE CLEAR; BILIRUBIN,URINE NEGATIVE (NEGATIVE); GLUCOSE, URINE NEGATIVE (NEGATIVE); KETONES,URINE NEGATIVE (NEGATIVE); LEUKOCYTE ESTERASE,URINE SMALL (NEGATIVE); NITRITE,URINE NEGATIVE (NEGATIVE); PROTEIN,URINE 30 mg/dL (NEGATIVE); URINE SPECIFIC GRAVITY 1.012; UROBILINOGEN,URINE NEGATIVE mg/dL (<2.0)
[2016-05-01] MEDS: NORMAL SALINE INJ/PF 0.9% 10 ML SDV IV PRN (13:53)
[2016-05-01] MEDS: APIXABAN 5 MG TABLET PO SCH (17:30)
[2016-05-02] MEDS: ACETAMINOPHEN 325 MG TABLET PO PRN (01:10)
[2016-05-02] MEDS: METOPROLOL TARTRATE PF/INJ 5 MG/5 ML SDV IV PRN (01:10)
[2016-05-02 06:08] LABS: ABSOLUTE BASOPHILS # (AUTO) 0.1 10^3/uL (0.0-0.2); ABSOLUTE EOSINOPHILS # (AUTO) 0.1 10^3/uL (0.0-0.6); ABSOLUTE LYMPHOCYTES (AUTO) 1.7 10^3/uL (0.5-4.7); ABSOLUTE MONOCYTES (AUTO) 1.3 10^3/uL (0.1-1.4); ABSOLUTE NEUT (AUTO) 7.3 10^3/uL (1.7-8.2); BASOPHILS % (AUTO) 0.5 % (0-2); EOSINOPHILS % (AUTO) 0.6 % (0-6); HEMATOCRIT 25.5 % (36.0-47.0); HEMOGLOBIN 8.7 g/dL (12.0-15.5); HGB HCT DIFFERENCE 0.6; LYMPHOCYTES % (AUTO) 16.6 % (13-45); MEAN CORPUSCULAR HEMOGLOBIN 25.5 pg (27.0-33.4); MEAN CORPUSCULAR HGB CONC 33.9 g/dL (32.0-36.0); MEAN CORPUSCULAR VOLUME 75 fl (80-97); MONOCYTES % (AUTO) 12.4 % (3-13); RED BLOOD COUNT 3.39 10^6/uL (3.72-5.28); RED CELL DISTRIBUTION WIDTH 22.2 % (11.5-14.0); SEGMENTED NEUTROPHILS % (AUTO) 69.9 % (42-78); WHITE BLOOD COUNT 10.5 10^3/uL (4.0-10.5)
[2016-05-02 06:17] LABS: PARTIAL THROMBOPLASTIN TIME 53.2 SEC (23.5-35.8)
[2016-05-02 06:28] LABS: ANION GAP 10 (5-19); BLOOD UREA NITROGEN 13 mg/dL (7-20); CARBON DIOXIDE 24 mmol/L (22-30); CHLORIDE 110 mmol/L (98-107); CREATININE RESULT 0.56 mg/dL (0.52-1.25); GLUCOSE 95 mg/dL (75-110); POTASSIUM 3.5 mmol/L (3.6-5.0); SODIUM 144.2 mmol/L (137-145)
[2016-05-02] MEDS ORDERED: DILTIAZEM HCL INJ 25 MG/5 ML VIAL IV ONE (06:28)
[2016-05-02] MEDS ORDERED: POTASSI CL 20 MEQ/50 ML RIDER 50 ML IV ONE (07:23)
[2016-05-02] MEDS: BACLOFEN 10 MG TABLET PO SCH (09:34)
[2016-05-02] MEDS: DOCUSATE SODIUM 100 MG CAPSULE PO SCH ×2 (09:35→17:52)
[2016-05-02] MEDS: OXYBUTYNIN CHLORIDE 5 MG TABLET PO SCH ×2 (09:35→17:52)
[2016-05-02] MEDS: LEVOFLOXACIN 750 MG TABLET PO SCH (09:35)
[2016-05-02] MEDS: APIXABAN 5 MG TABLET PO SCH ×2 (09:35→17:52)
[2016-05-02] MEDS ORDERED: DILTIAZEM HCL 180 MG CAPSULE.CR PO SCH (10:00)
--- NOTE | 2016-05-02 14:05 | PDOC PROGRESS REPORT ---
Subjective Progress Note for:: 05/02/16 Subjective:: Patient has no complaints. She has had no bleeding issues. Overnight physician reports the patient had episode of atrial fibrillation with rapid ventricular response. He administered one-time dose of IV Cardizem. Patient's Cardizem CD has been increased to 180 mg daily. Patient denies fever, chills, headache, new focal weakness, chest pain, shortness of breath, abdominal pain, nausea, vomiting, diarrhea, constipation. Physical Exam Vital Signs: Temp Pulse Resp BP Pulse Ox 98.2 F 88 19 126/64 H 100 05/02/16 12:03 05/02/16 12:03 05/02/16 12:03 05/02/16 12:03 05/02/16 12:03 Intake & Output 05/01/16 05/02/16 05/03/16 06:59 06:59 06:59 Intake Total 2870 1719 237 Output Total 4800 1900 850 Balance -1930 -181 -613 Weight 93.9 kg 92 kg GENERAL: No acute distress HEENT: Conjunctiva clear, nonicteric, moist mucous membranes, no JVD, midline trachea RESPIRATORY: Clear to auscultation bilaterally, no wheezes, no rhonchi CARDIAC: Irregularly irregular ABDOMEN: Soft, nondistended, nontender, positive bowel sounds, no rebound, no guarding. Suprapubic catheter EXTREMETIES: No edema, cyanosis, clubbing NEUROLOGIC: Alert, oriented to person/place/time, CN's grossly intact, paraplegia SKIN: No rash, wounds PSYCH: Normal mood, normal affect Results Laboratory Results: 05/02/16 05:55 05/02/16 05:55 05/02/16 05/02/16 05/02/16 05:55 05:55 05:55 WBC 10.5 RBC 3.39 L Hgb 8.7 L Hct 25.5 L MCV 75 L MCH 25.5 L MCHC 33.9 RDW 22.2 H Plt Count 218 Seg Neutrophils % 69.9 Lymphocytes % 16.6 Monocytes % 12.4 Eosinophils % 0.6 Basophils % 0.5 Absolute Neutrophils 7.3 Absolute Lymphocytes 1.7 Absolute Monocytes 1.3 Absolute Eosinophils 0.1 Absolute Basophils 0.1 Sodium 144.2 Potassium 3.5 L Chloride 110 H Carbon Dioxide 24 Anion Gap 10 BUN 13 Creatinine 0.56 Est GFR ( Amer) > 60 Est GFR (Non-Af Amer) > 60 Glucose 95 Calcium 9.0 Magnesium 1.4 L 04/29/16 11:00 Catheterized Urine Urine Culture - Final Klebsiella Pneumoniae Impressions: Chest X-Ray 04/28/16 11:23 IMPRESSION: Appropriate right IJ line. No complication. Stable chest otherwise. Assessment & Plan - Diagnosis (1) Sepsis Qualifiers: Sepsis type: sepsis due to unspecified organism Qualified Code(s): A41.9 - Sepsis, unspecified organism Is this a current diagnosis for this admission?: YesPlan: Patient is afebrile and hemodynamically stable. Continue to treat urinary tract infection/bacteremia. (2) Complicated UTI (urinary tract infection) Is this a current diagnosis for this admission?: YesPlan: Patient has urinary tract infection complicated by chronic suprapubic catheter. Blood cultures are growing Klebsiella sensitive to Levaquin. Continue Levaquin. (3) Coagulopathy Is this a current diagnosis for this admission?: YesPlan: Coumadin discontinued. Coagulopathy corrected with FFP and vitamin K. After a long discussion with patient regarding risk/benefit/alternative to Coumadin patient has decided not to resume Coumadin and to allow me to initiate anticoagulation with Eliquis instead. I think given the fact that she has recurrent urinary infections requiring her to be on and off antibiotics this may be a better option as it poses fewer drug-drug interactions. (4) Atrial fibrillation Qualifiers: Atrial fibrillation type: paroxysmal Qualified Code(s): I48.0 - Paroxysmal atrial fibrillation Is this a current diagnosis for this admission?: YesPlan: Increase Cardizem CD 180 mg daily. Coumadin discontinued secondary to coagulopathy. Patient's echocardiogram last year shows no valvular heart disease. Continue Eliquis 5 mg twice daily. Replace potassium and magnesium. (5) Hypertension Is this a current diagnosis for this admission?: Yes (6) Iron deficiency anemia Is this a current diagnosis for this admission?: YesPlan: Patient is status post 3 units PRBC this admission. Continue to monitor H&H for stability in light of coagulopathy/anticoagulation. (7) Sacral decubitus ulcer, stage IV Is this a current diagnosis for this admission?: Yes (8) Paraplegia Is this a current diagnosis for this admission?: YesPlan: Continue supportive care. Patient normally resides at home with home health services. (9) Hypokalemia Is this a current diagnosis for this admission?: YesPlan: Replace. Follow up labs. (10) Hypomagnesemia Is this a current diagnosis for this admission?: YesPlan: Replace. Follow up labs. (11) Full code status Is this a current diagnosis for this admission?: Yes - Time Time Spent with patient: 35 or more minutes
[2016-05-02] MEDS ORDERED: MAGNESIUM SULFATE/D5W 100 ML IV ONE (15:00)
[2016-05-02] MEDS: ACETIC ACID 3% SOLN 473 ML TOP SCH (16:52)
[2016-05-02] MEDS: SILVER SULFADIAZINE 1% CREAM 25 GM TP SCH (16:52)
[2016-05-03] MEDS: ACETAMINOPHEN 325 MG TABLET PO PRN (00:33)
[2016-05-03] MEDS ORDERED: DILTIAZEM HCL INJ 25 MG/5 ML VIAL ONE (03:48)
[2016-05-03 06:12] LABS: ABSOLUTE EOSINOPHILS # (AUTO) 0.1 10^3/uL (0.0-0.6); ABSOLUTE LYMPHOCYTES (AUTO) 1.7 10^3/uL (0.5-4.7); ABSOLUTE MONOCYTES (AUTO) 1.4 10^3/uL (0.1-1.4); BASOPHILS % (AUTO) 0.3 % (0-2); EOSINOPHILS % (AUTO) 0.8 % (0-6); HEMATOCRIT 25.4 % (36.0-47.0); HGB HCT DIFFERENCE -1.4; LYMPHOCYTES % (AUTO) 16.3 % (13-45); MEAN CORPUSCULAR HEMOGLOBIN 24.7 pg (27.0-33.4); MEAN CORPUSCULAR HGB CONC 31.7 g/dL (32.0-36.0); MEAN CORPUSCULAR VOLUME 78 fl (80-97); MONOCYTES % (AUTO) 13.3 % (3-13); RED BLOOD COUNT 3.25 10^6/uL (3.72-5.28); RED CELL DISTRIBUTION WIDTH 22.1 % (11.5-14.0); SEGMENTED NEUTROPHILS % (AUTO) 69.3 % (42-78); WHITE BLOOD COUNT 10.2 10^3/uL (4.0-10.5)
[2016-05-03 06:14] LABS: PROTHROMBIN TIME 17.4 SEC (11.4-15.4)
[2016-05-03 06:15] LABS: PARTIAL THROMBOPLASTIN TIME 47.9 SEC (23.5-35.8)
[2016-05-03 06:26] LABS: ANION GAP 9 (5-19); BLOOD UREA NITROGEN 10 mg/dL (7-20); CALCIUM 8.5 mg/dL (8.4-10.2); CARBON DIOXIDE 28 mmol/L (22-30); CHLORIDE 108 mmol/L (98-107); CREATININE RESULT 0.58 mg/dL (0.52-1.25); GLUCOSE 92 mg/dL (75-110); MAGNESIUM 1.4 mg/dL (1.6-2.3); POTASSIUM 3.3 mmol/L (3.6-5.0); SODIUM 144.5 mmol/L (137-145)
[2016-05-03] MEDS ORDERED: NORMAL SALINE 250 ML IV PRN ×2 (07:41)
[2016-05-03] MEDS ORDERED: DILTIAZEM HCL 240 MG CAPSULE.CR PO SCH (10:00)
[2016-05-03 10:13] LABS: FREE T3 3.83 pg/mL (2.77-5.27)
[2016-05-03 10:26] LABS: THYROID STIMULATING HORMONE 2.05 uIU/mL (0.47-4.68)
[2016-05-03] MEDS: LEVOFLOXACIN 750 MG TABLET PO SCH (10:44)
[2016-05-03] MEDS: BACLOFEN 10 MG TABLET PO SCH (10:45)
[2016-05-03] MEDS: OXYBUTYNIN CHLORIDE 5 MG TABLET PO SCH ×2 (10:45→18:17)
[2016-05-03] MEDS: FERROUS SULFATE 325 MG TABLET PO SCH (10:45)
[2016-05-03] MEDS: DOCUSATE SODIUM 100 MG CAPSULE PO SCH ×2 (10:45→18:18)
[2016-05-03] MEDS: SILVER SULFADIAZINE 1% CREAM 25 GM TP SCH (10:46)
[2016-05-03] MEDS: ACETIC ACID 3% SOLN 473 ML TOP SCH (10:46)
[2016-05-03] MEDS ORDERED: MAGNESIUM SULFATE/D5W 100 ML IV ONE (12:32)
[2016-05-03] MEDS ORDERED: POTASSIUM CHLORIDE 10 MEQ TABLET.SA PO ONE (12:34)
[2016-05-03 12:55] LABS: APPEARANCE,URINE CLOUDY; BILIRUBIN,URINE NEGATIVE (NEGATIVE); GLUCOSE, URINE NEGATIVE (NEGATIVE); KETONES,URINE NEGATIVE (NEGATIVE); LEUKOCYTE ESTERASE,URINE SMALL (NEGATIVE); NITRITE,URINE NEGATIVE (NEGATIVE); PROTEIN,URINE NEGATIVE (NEGATIVE); URINE SPECIFIC GRAVITY 1.013; UROBILINOGEN,URINE NEGATIVE mg/dL (<2.0)
--- NOTE | 2016-05-03 14:52 | EKG REPORT ---
SEVERITY:- BORDERLINE ECG - SINUS RHYTHM BORDERLINE T ABNORMALITIES, DIFFUSE LEADS ATRIAL PREMATURE COMPLEXS : Confirmed by: Trevor Phillip 03-May-2016 14:51:10
--- NOTE | 2016-05-03 14:52 | EKG REPORT ---
SEVERITY:- ABNORMAL ECG - ATRIAL FIBRILLATION WITH RAPID V-RATE MINIMAL ST DEPRESSION, INFERIOR LEADS NONSPECIFIC T ABNORMALITIES, DIFFUSE LEADS : Confirmed by: Trevor Phillip 03-May-2016 14:51:19
[2016-05-03] MEDS: NORMAL SALINE INJ/PF 0.9% 10 ML SDV IV PRN (15:17)
--- NOTE | 2016-05-03 16:21 | PDOC PROGRESS REPORT ---
Subjective Progress Note for:: 05/03/16 Subjective:: Patient has no complaints. She has had no bleeding issues. Overnight physician reports the patient had episode of atrial fibrillation with rapid ventricular response. He administered 3 doses of IV Cardizem. Patient denies fever, chills, headache, new focal weakness, chest pain, shortness of breath, abdominal pain, nausea, vomiting, diarrhea, constipation. Physical Exam Vital Signs: Temp Pulse Resp BP Pulse Ox 98.8 F 90 20 124/70 98 05/03/16 13:59 05/03/16 13:59 05/03/16 13:59 05/03/16 13:59 05/03/16 13:59 Intake & Output 05/02/16 05/03/16 05/04/16 06:59 06:59 06:59 Intake Total 1719 1592 834 Output Total 1900 2550 500 Balance -181 -958 334 Weight 92 kg 91.1 kg GENERAL: No acute distress HEENT: Conjunctiva clear, nonicteric, moist mucous membranes, no JVD, midline trachea RESPIRATORY: Clear to auscultation bilaterally, no wheezes, no rhonchi CARDIAC: Irregularly irregular ABDOMEN: Soft, nondistended, nontender, positive bowel sounds, no rebound, no guarding. Suprapubic catheter EXTREMETIES: No edema, cyanosis, clubbing NEUROLOGIC: Alert, oriented to person/place/time, CN's grossly intact, paraplegia SKIN: No rash, wounds PSYCH: Normal mood, normal affect Results Laboratory Results: 05/03/16 05:50 05/03/16 05:50 05/03/16 05/03/16 05/03/16 05:50 05:50 05:50 WBC 10.2 RBC 3.25 L Hgb 8.0 L Hct 25.4 L MCV 78 L MCH 24.7 L MCHC 31.7 L RDW 22.1 H Plt Count 266 Seg Neutrophils % 69.3 Lymphocytes % 16.3 Monocytes % 13.3 H Eosinophils % 0.8 Basophils % 0.3 Absolute Neutrophils 7.0 Absolute Lymphocytes 1.7 Absolute Monocytes 1.4 Absolute Eosinophils 0.1 Absolute Basophils 0.0 Retic Count (auto) 1.73 Absolute Retic 0.057 Sodium 144.5 Potassium 3.3 L Chloride 108 H Carbon Dioxide 28 Anion Gap 9 BUN 10 Creatinine 0.58 Est GFR ( Amer) > 60 Est GFR (Non-Af Amer) > 60 Glucose 92 Calcium 8.5 Magnesium 1.4 L Iron TIBC % Saturation Ferritin Vitamin B12 Folate TSH Free T4 Free T3 pg/mL Urine Color Urine Appearance Urine pH Ur Specific [place] Urine Protein Urine Glucose (UA) Urine Ketones Urine Blood Urine Nitrite Ur Leukocyte Esterase Urine WBC (Auto) Urine RBC (Auto) Blood Type Antibody Screen 05/03/16 05/03/16 05/03/16 05:50 05:50 08:09 WBC RBC Hgb Hct MCV MCH MCHC RDW Plt Count Seg Neutrophils % Lymphocytes % Monocytes % Eosinophils % Basophils % Absolute Neutrophils Absolute Lymphocytes Absolute Monocytes Absolute Eosinophils Absolute Basophils Retic Count (auto) Absolute Retic Sodium Potassium Chloride Carbon Dioxide Anion Gap BUN Creatinine Est GFR ( Amer) Est GFR (Non-Af Amer) Glucose Calcium Magnesium Iron 13 L TIBC 292 % Saturation 4 Ferritin 43.40 Vitamin B12 400.0 Folate 8.40 TSH 2.05 Free T4 1.71 Free T3 pg/mL 3.83 Urine Color Urine Appearance Urine pH Ur Specific [place] Urine Protein Urine Glucose (UA) Urine Ketones Urine Blood Urine Nitrite Ur Leukocyte Esterase Urine WBC (Auto) Urine RBC (Auto) Blood Type B POSITIVE Antibody Screen NEGATIVE 05/03/16 12:37 WBC RBC Hgb Hct MCV MCH MCHC RDW Plt Count Seg Neutrophils % Lymphocytes % Monocytes % Eosinophils % Basophils % Absolute Neutrophils Absolute Lymphocytes Absolute Monocytes Absolute Eosinophils Absolute Basophils Retic Count (auto) Absolute Retic Sodium Potassium Chloride Carbon Dioxide Anion Gap BUN Creatinine Est GFR ( Amer) Est GFR (Non-Af Amer) Glucose Calcium Magnesium Iron TIBC % Saturation Ferritin Vitamin B12 Folate TSH Free T4 Free T3 pg/mL Urine Color YELLOW Urine Appearance CLOUDY Urine pH 5.0 Ur Specific [place] 1.013 Urine Protein NEGATIVE Urine Glucose (UA) NEGATIVE Urine Ketones NEGATIVE Urine Blood SMALL H Urine Nitrite NEGATIVE Ur Leukocyte Esterase SMALL H Urine WBC (Auto) 12 Urine RBC (Auto) 15 Blood Type Antibody Screen Impressions: Chest X-Ray 04/28/16 11:23 IMPRESSION: Appropriate right IJ line. No complication. Stable chest otherwise. Assessment & Plan - Diagnosis (1) Sepsis Qualifiers: Sepsis type: sepsis due to unspecified organism Qualified Code(s): A41.9 - Sepsis, unspecified organism Is this a current diagnosis for this admission?: YesPlan: Patient is afebrile and hemodynamically stable. Continue to treat urinary tract infection/bacteremia. (2) Complicated UTI (urinary tract infection) Is this a current diagnosis for this admission?: YesPlan: Patient has urinary tract infection complicated by chronic suprapubic catheter. Blood cultures are growing Klebsiella sensitive to Levaquin. Continue Levaquin. (3) Coagulopathy Is this a current diagnosis for this admission?: YesPlan: Coumadin discontinued. Coagulopathy corrected with FFP and vitamin K. Patient was started on Eliquis, however she has had continued decline in hemoglobin and hematocrit since restarting anticoagulation. I will discontinue Eliquis and hold off on further anticoagulation until H&H stable and source of anemia is identified. (4) Atrial fibrillation Qualifiers: Atrial fibrillation type: paroxysmal Qualified Code(s): I48.0 - Paroxysmal atrial fibrillation Is this a current diagnosis for this admission?: YesPlan: Patient has continued issues with rapid ventricular response. Patient's tachycardic response may be secondary to blood loss anemia. I would also like to check thyroid function studies. Increase Cardizem CD to 240 mg daily. Coumadin discontinued secondary to coagulopathy. Patient's echocardiogram last year shows no valvular heart disease. Discontinue Eliquis secondary to anemia requiring transfusion. (5) Hypertension Is this a current diagnosis for this admission?: Yes (6) Iron deficiency anemia Is this a current diagnosis for this admission?: YesPlan: Patient is status post 3 units PRBC this admission. I will need to transfuse 1 more unit PRBC today. Discontinue anticoagulation. Hemoccult stools. Continue to monitor H&H for stability. Patient has never had colonoscopy. She denies melena. Start iron sulfate 325 mg daily. (7) Sacral decubitus ulcer, stage IV Is this a current diagnosis for this admission?: Yes (8) Paraplegia Is this a current diagnosis for this admission?: YesPlan: Continue supportive care. Patient normally resides at home with home health services. (9) Hypokalemia Is this a current diagnosis for this admission?: YesPlan: Replace. Start scheduled potassium supplementation. Follow up labs. (10) Hypomagnesemia Is this a current diagnosis for this admission?: YesPlan: Replace. Start scheduled magnesium supplementation. Follow up labs. (11) Full code status Is this a current diagnosis for this admission?: Yes - Time Time Spent with patient: 35 or more minutes
[2016-05-03 16:37] LABS: ABSOLUTE EOSINOPHILS # (AUTO) 0.1 10^3/uL (0.0-0.6); ABSOLUTE LYMPHOCYTES (AUTO) 1.4 10^3/uL (0.5-4.7); BASOPHILS % (AUTO) 0.5 % (0-2); EOSINOPHILS % (AUTO) 0.7 % (0-6); HEMATOCRIT 27.9 % (36.0-47.0); HGB HCT DIFFERENCE -0.9; LYMPHOCYTES % (AUTO) 14.3 % (13-45); MEAN CORPUSCULAR HEMOGLOBIN 25.6 pg (27.0-33.4); MEAN CORPUSCULAR HGB CONC 32.4 g/dL (32.0-36.0); MEAN CORPUSCULAR VOLUME 79 fl (80-97); RED BLOOD COUNT 3.53 10^6/uL (3.72-5.28); RED CELL DISTRIBUTION WIDTH 21.8 % (11.5-14.0); SEGMENTED NEUTROPHILS % (AUTO) 73.5 % (42-78); WHITE BLOOD COUNT 9.5 10^3/uL (4.0-10.5)
[2016-05-03] MEDS: MAGNESIUM OXIDE 400 MG TABLET PO SCH (18:18)
[2016-05-04] MEDS: DILTIAZEM HCL INJ 25 MG/5 ML VIAL IV PRN (02:24)
[2016-05-04] MEDS: ACETAMINOPHEN 325 MG TABLET PO PRN (05:10)
[2016-05-04 05:57] LABS: ABSOLUTE EOSINOPHILS # (AUTO) 0.1 10^3/uL (0.0-0.6); ABSOLUTE LYMPHOCYTES (AUTO) 1.6 10^3/uL (0.5-4.7); ABSOLUTE MONOCYTES (AUTO) 1.3 10^3/uL (0.1-1.4); BASOPHILS % (AUTO) 0.5 % (0-2); EOSINOPHILS % (AUTO) 0.8 % (0-6); HEMATOCRIT 30.1 % (36.0-47.0); HGB HCT DIFFERENCE -0.1; MEAN CORPUSCULAR HEMOGLOBIN 26.1 pg (27.0-33.4); MEAN CORPUSCULAR HGB CONC 33.1 g/dL (32.0-36.0); MEAN CORPUSCULAR VOLUME 79 fl (80-97); RED BLOOD COUNT 3.82 10^6/uL (3.72-5.28); RED CELL DISTRIBUTION WIDTH 21.9 % (11.5-14.0); SEGMENTED NEUTROPHILS % (AUTO) 69.7 % (42-78); WHITE BLOOD COUNT 10.1 10^3/uL (4.0-10.5)
[2016-05-04 06:00] LABS: PROTHROMBIN TIME 15.2 SEC (11.4-15.4)
[2016-05-04 06:08] LABS: ALANINE AMINOTRANSFERASE 18 U/L (9-52); ALBUMIN 3.1 g/dL (3.5-5.0); ALKALINE PHOSPHATASE 132 U/L (38-126); ANION GAP 10 (5-19); ASPARTATE AMINO TRANSFERASE 9 U/L (14-36); BILIRUBIN,TOTAL 0.5 mg/dL (0.2-1.3); BLOOD UREA NITROGEN 8 mg/dL (7-20); CALCIUM 9.1 mg/dL (8.4-10.2); CARBON DIOXIDE 29 mmol/L (22-30); CHLORIDE 107 mmol/L (98-107); CREATININE RESULT 0.47 mg/dL (0.52-1.25); GLUCOSE 102 mg/dL (75-110); MAGNESIUM 1.6 mg/dL (1.6-2.3); POTASSIUM 3.7 mmol/L (3.6-5.0); SODIUM 145.8 mmol/L (137-145); TOTAL PROTEIN 5.8 g/dL (6.3-8.2)
--- NOTE | 2016-05-04 08:54 | PDOC PROGRESS REPORT ---
Subjective Progress Note for:: 05/04/16 Subjective:: Patient has no complaints. Patient complains of a swelling on the posterior side of her left upper arm. She denies receiving an injection to this area or injuring this area and anyway. Overnight physician reports the patient had episode of atrial fibrillation with rapid ventricular response. He administered IV Cardizem. Patient denies fever, chills, headache, new focal weakness, chest pain, shortness of breath, abdominal pain, nausea, vomiting, diarrhea, constipation. Physical Exam Vital Signs: Temp Pulse Resp BP Pulse Ox 98.3 F 82 16 134/72 H 97 05/04/16 07:20 05/04/16 07:20 05/04/16 07:20 05/04/16 07:20 05/04/16 07:20 Intake & Output 05/03/16 05/04/16 05/05/16 06:59 06:59 06:59 Intake Total 1592 2202 Output Total 2550 3100 Balance -958 -898 Weight 91.1 kg 90.2 kg GENERAL: No acute distress HEENT: Conjunctiva clear, nonicteric, moist mucous membranes, no JVD, midline trachea RESPIRATORY: Clear to auscultation bilaterally, no wheezes, no rhonchi CARDIAC: Irregularly irregular ABDOMEN: Soft, nondistended, nontender, positive bowel sounds, no rebound, no guarding. Suprapubic catheter EXTREMETIES: No edema, cyanosis, clubbing NEUROLOGIC: Alert, oriented to person/place/time, CN's grossly intact, paraplegia SKIN: Hematoma over left tricep PSYCH: Normal mood, normal affect Results Laboratory Results: 05/04/16 05:15 05/04/16 05:15 05/03/16 05/03/16 05/03/16 05:50 05:50 05:50 WBC RBC Hgb Hct MCV MCH MCHC RDW Plt Count Seg Neutrophils % Lymphocytes % Monocytes % Eosinophils % Basophils % Absolute Neutrophils Absolute Lymphocytes Absolute Monocytes Absolute Eosinophils Absolute Basophils Retic Count (auto) 1.73 Absolute Retic 0.057 Sodium Potassium Chloride Carbon Dioxide Anion Gap BUN Creatinine Est GFR ( Amer) Est GFR (Non-Af Amer) Glucose Calcium Magnesium Iron 13 L TIBC 292 % Saturation 4 Ferritin 43.40 Total Bilirubin AST ALT Alkaline Phosphatase Total Protein Albumin Vitamin B12 400.0 Folate 8.40 TSH 2.05 Free T4 1.71 Free T3 pg/mL 3.83 Urine Color Urine Appearance Urine pH Ur Specific [place] Urine Protein Urine Glucose (UA) Urine Ketones Urine Blood Urine Nitrite Ur Leukocyte Esterase Urine WBC (Auto) Urine RBC (Auto) Blood Type Antibody Screen 05/03/16 05/03/16 05/03/16 08:09 12:37 15:55 WBC 9.5 RBC 3.53 L Hgb 9.0 L Hct 27.9 L MCV 79 L MCH 25.6 L MCHC 32.4 RDW 21.8 H Plt Count 299 Seg Neutrophils % 73.5 Lymphocytes % 14.3 Monocytes % 11.0 Eosinophils % 0.7 Basophils % 0.5 Absolute Neutrophils 7.0 Absolute Lymphocytes 1.4 Absolute Monocytes 1.0 Absolute Eosinophils 0.1 Absolute Basophils 0.0 Retic Count (auto) Absolute Retic Sodium Potassium Chloride Carbon Dioxide Anion Gap BUN Creatinine Est GFR ( Amer) Est GFR (Non-Af Amer) Glucose Calcium Magnesium Iron TIBC % Saturation Ferritin Total Bilirubin AST ALT Alkaline Phosphatase Total Protein Albumin Vitamin B12 Folate TSH Free T4 Free T3 pg/mL Urine Color YELLOW Urine Appearance CLOUDY Urine pH 5.0 Ur Specific [place] 1.013 Urine Protein NEGATIVE Urine Glucose (UA) NEGATIVE Urine Ketones NEGATIVE Urine Blood SMALL H Urine Nitrite NEGATIVE Ur Leukocyte Esterase SMALL H Urine WBC (Auto) 12 Urine RBC (Auto) 15 Blood Type B POSITIVE Antibody Screen NEGATIVE 05/04/16 05/04/16 05:15 05:15 WBC 10.1 RBC 3.82 Hgb 10.0 L Hct 30.1 L MCV 79 L MCH 26.1 L MCHC 33.1 RDW 21.9 H Plt Count 328 Seg Neutrophils % 69.7 Lymphocytes % 16.0 Monocytes % 13.0 Eosinophils % 0.8 Basophils % 0.5 Absolute Neutrophils 7.0 Absolute Lymphocytes 1.6 Absolute Monocytes 1.3 Absolute Eosinophils 0.1 Absolute Basophils 0.0 Retic Count (auto) Absolute Retic Sodium 145.8 H Potassium 3.7 Chloride 107 Carbon Dioxide 29 Anion Gap 10 BUN 8 Creatinine 0.47 L Est GFR ( Amer) > 60 Est GFR (Non-Af Amer) > 60 Glucose 102 Calcium 9.1 Magnesium 1.6 Iron TIBC % Saturation Ferritin Total Bilirubin 0.5 AST 9 L ALT 18 Alkaline Phosphatase 132 H Total Protein 5.8 L Albumin 3.1 L Vitamin B12 Folate TSH Free T4 Free T3 pg/mL Urine Color Urine Appearance Urine pH Ur Specific [place] Urine Protein Urine Glucose (UA) Urine Ketones Urine Blood Urine Nitrite Ur Leukocyte Esterase Urine WBC (Auto) Urine RBC (Auto) Blood Type Antibody Screen Impressions: Chest X-Ray 04/28/16 11:23 IMPRESSION: Appropriate right IJ line. No complication. Stable chest otherwise. Assessment & Plan - Diagnosis (1) Sepsis Qualifiers: Sepsis type: sepsis due to unspecified organism Qualified Code(s): A41.9 - Sepsis, unspecified organism Is this a current diagnosis for this admission?: YesPlan: Patient is afebrile and hemodynamically stable. Continue to treat urinary tract infection/bacteremia. (2) Complicated UTI (urinary tract infection) Is this a current diagnosis for this admission?: YesPlan: Patient has urinary tract infection complicated by chronic suprapubic catheter. Blood cultures are growing Klebsiella sensitive to Levaquin. Continue Levaquin until 05/07/2016. (3) Coagulopathy Is this a current diagnosis for this admission?: YesPlan: Coumadin discontinued. Coagulopathy corrected with FFP and vitamin K. Patient was started on Eliquis, however she has had continued decline in hemoglobin and hematocrit since restarting anticoagulation. I discontinued Eliquis and hold off on further anticoagulation until H&H stable and source of anemia is identified. (4) Atrial fibrillation Qualifiers: Atrial fibrillation type: paroxysmal Qualified Code(s): I48.0 - Paroxysmal atrial fibrillation Is this a current diagnosis for this admission?: YesPlan: Patient has continued issues with rapid ventricular response. Patient's tachycardic response may be secondary to blood loss anemia. Thyroid function studies normal. Increase Cardizem CD to 360 mg daily. Coumadin discontinued secondary to coagulopathy. Patient's echocardiogram last year shows no valvular heart disease. Discontinued Eliquis secondary to anemia requiring transfusion. (5) Hypertension Is this a current diagnosis for this admission?: Yes (6) Iron deficiency anemia Is this a current diagnosis for this admission?: YesPlan: Patient is status post 4 units PRBC this admission. I will need to transfuse 1 more unit PRBC today. Discontinue anticoagulation. Hemoccult stools. Continue to monitor H&H for stability. Patient has never had colonoscopy. She denies melena. Patient will need to have a colonoscopy. This can be done on an outpatient basis if H&H remains stable. If H&H continues to decline after transfusion I will consult GI for inpatient colonoscopy and possibly EGD. Continue iron sulfate 325 mg daily. (7) Sacral decubitus ulcer, stage IV Is this a current diagnosis for this admission?: Yes (8) Paraplegia Is this a current diagnosis for this admission?: YesPlan: Continue supportive care. Patient normally resides at home with home health services. (9) Hypokalemia Is this a current diagnosis for this admission?: YesPlan: Replace as needed. Continue KCL 20meq daily. Follow up labs. (10) Hypomagnesemia Is this a current diagnosis for this admission?: Yes (11) Hematoma of arm Is this a current diagnosis for this admission?: YesPlan: Patient has a hematoma of her left arm this seems to have occurred spontaneously secondary to profound coagulopathy. This is fairly small in size measuring approximately 2 cm. I would imagine this will resolve spontaneously now the coagulopathy has been corrected and anticoagulation has been discontinued for now. (12) Full code status Is this a current diagnosis for this admission?: Yes - Time Time Spent with patient: 35 or more minutes
[2016-05-04] MEDS ORDERED: LANSOPRAZOLE 30 MG TAB.RAP.DR PO ONE (09:15)
[2016-05-04] MEDS: MAGNESIUM OXIDE 400 MG TABLET PO SCH ×2 (10:00→17:30)
[2016-05-04] MEDS: DOCUSATE SODIUM 100 MG CAPSULE PO SCH ×2 (10:00→17:30)
[2016-05-04] MEDS: DILTIAZEM HCL 180 MG CAPSULE.CR PO SCH (10:00)
[2016-05-04] MEDS: POTASSIUM CHLORIDE 10 MEQ TABLET.SA PO SCH (10:00)
[2016-05-04] MEDS: OXYBUTYNIN CHLORIDE 5 MG TABLET PO SCH ×2 (10:00→17:30)
[2016-05-04] MEDS: LEVOFLOXACIN 750 MG TABLET PO SCH (10:00)
[2016-05-04] MEDS: BACLOFEN 10 MG TABLET PO SCH (10:00)
[2016-05-04] MEDS: FERROUS SULFATE 325 MG TABLET PO SCH (10:01)
[2016-05-04] MEDS: SILVER SULFADIAZINE 1% CREAM 25 GM TP SCH (15:15)
[2016-05-04] MEDS: ACETIC ACID 3% SOLN 473 ML TOP SCH (15:16)
[2016-05-05] MEDS: DILTIAZEM HCL INJ 25 MG/5 ML VIAL IV PRN ×3 (00:45→05:19)
[2016-05-05 06:51] LABS: ABSOLUTE BASOPHILS # (AUTO) 0.1 10^3/uL (0.0-0.2); ABSOLUTE EOSINOPHILS # (AUTO) 0.1 10^3/uL (0.0-0.6); ABSOLUTE MONOCYTES (AUTO) 1.1 10^3/uL (0.1-1.4); ABSOLUTE NEUT (AUTO) 5.4 10^3/uL (1.7-8.2); BASOPHILS % (AUTO) 0.6 % (0-2); EOSINOPHILS % (AUTO) 1.6 % (0-6); HEMATOCRIT 31.4 % (36.0-47.0); HEMOGLOBIN 10.1 g/dL (12.0-15.5); HGB HCT DIFFERENCE -1.1; LYMPHOCYTES % (AUTO) 22.6 % (13-45); MEAN CORPUSCULAR HEMOGLOBIN 25.3 pg (27.0-33.4); MEAN CORPUSCULAR HGB CONC 32.2 g/dL (32.0-36.0); MEAN CORPUSCULAR VOLUME 79 fl (80-97); MONOCYTES % (AUTO) 12.8 % (3-13); RED BLOOD COUNT 3.98 10^6/uL (3.72-5.28); RED CELL DISTRIBUTION WIDTH 21.8 % (11.5-14.0); SEGMENTED NEUTROPHILS % (AUTO) 62.4 % (42-78); WHITE BLOOD COUNT 8.7 10^3/uL (4.0-10.5)
[2016-05-05 07:01] LABS: ALANINE AMINOTRANSFERASE 16 U/L (9-52); ALBUMIN 2.8 g/dL (3.5-5.0); ALKALINE PHOSPHATASE 128 U/L (38-126); ANION GAP 9 (5-19); ASPARTATE AMINO TRANSFERASE 9 U/L (14-36); BILIRUBIN,TOTAL 0.4 mg/dL (0.2-1.3); BLOOD UREA NITROGEN 9 mg/dL (7-20); CARBON DIOXIDE 31 mmol/L (22-30); CHLORIDE 104 mmol/L (98-107); CREATININE RESULT 0.53 mg/dL (0.52-1.25); GLUCOSE 92 mg/dL (75-110); MAGNESIUM 1.6 mg/dL (1.6-2.3); POTASSIUM 3.9 mmol/L (3.6-5.0); SODIUM 143.9 mmol/L (137-145); TOTAL PROTEIN 5.9 g/dL (6.3-8.2)
[2016-05-05] MEDS: DILTIAZEM HCL 180 MG CAPSULE.CR PO SCH (09:23)
[2016-05-05] MEDS: DOCUSATE SODIUM 100 MG CAPSULE PO SCH ×2 (09:24→17:32)
[2016-05-05] MEDS: POTASSIUM CHLORIDE 10 MEQ TABLET.SA PO SCH (09:24)
[2016-05-05] MEDS: LANSOPRAZOLE 30 MG TAB.RAP.DR PO SCH (09:25)
[2016-05-05] MEDS: LEVOFLOXACIN 750 MG TABLET PO SCH (09:25)
[2016-05-05] MEDS: MAGNESIUM OXIDE 400 MG TABLET PO SCH ×2 (09:25→17:31)
[2016-05-05] MEDS: OXYBUTYNIN CHLORIDE 5 MG TABLET PO SCH ×2 (09:26→17:32)
[2016-05-05] MEDS: BACLOFEN 10 MG TABLET PO SCH (09:26)
[2016-05-05] MEDS: FERROUS SULFATE 325 MG TABLET PO SCH (09:26)
[2016-05-05] MEDS: ACETIC ACID 3% SOLN 473 ML TOP SCH (14:51)
[2016-05-05] MEDS: SILVER SULFADIAZINE 1% CREAM 25 GM TP SCH (14:51)
[2016-05-05] MEDS ORDERED: BISACODYL 10 MG SUPP.RECT PR ONE (18:43)
--- NOTE | 2016-05-05 18:48 | PDOC PROGRESS REPORT ---
Subjective Progress Note for:: 05/05/16 Subjective:: Patient has no complaints. Overnight physician reports the patient had episode of atrial fibrillation with rapid ventricular response. He administered IV Cardizem. Patient denies fever, chills, headache, new focal weakness, chest pain, shortness of breath, abdominal pain, nausea, vomiting, diarrhea, constipation. Physical Exam Vital Signs: Temp Pulse Resp BP Pulse Ox 97.9 F 78 16 126/61 H 98 05/05/16 15:01 05/05/16 15:01 05/05/16 15:01 05/05/16 15:01 05/05/16 15:01 Intake & Output 05/04/16 05/05/16 05/06/16 06:59 06:59 06:59 Intake Total 2202 780 650 Output Total 3100 3150 1550 Balance -898 -2370 -900 Weight 90.2 kg 90.2 kg GENERAL: No acute distress HEENT: Conjunctiva clear, nonicteric, moist mucous membranes, no JVD, midline trachea RESPIRATORY: Clear to auscultation bilaterally, no wheezes, no rhonchi CARDIAC: Irregularly irregular ABDOMEN: Soft, nondistended, nontender, positive bowel sounds, no rebound, no guarding. Suprapubic catheter EXTREMETIES: No edema, cyanosis, clubbing NEUROLOGIC: Alert, oriented to person/place/time, CN's grossly intact, paraplegia SKIN: Hematoma over left tricep PSYCH: Normal mood, normal affect Results Laboratory Results: 05/05/16 05:25 05/05/16 05:25 05/05/16 05/05/16 05:25 05:25 WBC 8.7 RBC 3.98 Hgb 10.1 L Hct 31.4 L MCV 79 L MCH 25.3 L MCHC 32.2 RDW 21.8 H Plt Count 378 Seg Neutrophils % 62.4 Lymphocytes % 22.6 Monocytes % 12.8 Eosinophils % 1.6 Basophils % 0.6 Absolute Neutrophils 5.4 Absolute Lymphocytes 2.0 Absolute Monocytes 1.1 Absolute Eosinophils 0.1 Absolute Basophils 0.1 Sodium 143.9 Potassium 3.9 Chloride 104 Carbon Dioxide 31 H Anion Gap 9 BUN 9 Creatinine 0.53 Est GFR ( Amer) > 60 Est GFR (Non-Af Amer) > 60 Glucose 92 Calcium 9.0 Magnesium 1.6 Total Bilirubin 0.4 AST 9 L ALT 16 Alkaline Phosphatase 128 H Total Protein 5.9 L Albumin 2.8 L Impressions: Chest X-Ray 04/28/16 11:23 IMPRESSION: Appropriate right IJ line. No complication. Stable chest otherwise. Assessment & Plan - Diagnosis (1) Sepsis Qualifiers: Sepsis type: sepsis due to unspecified organism Qualified Code(s): A41.9 - Sepsis, unspecified organism Is this a current diagnosis for this admission?: YesPlan: Resolved. (2) Complicated UTI (urinary tract infection) Is this a current diagnosis for this admission?: YesPlan: Patient has urinary tract infection complicated by chronic suprapubic catheter. Blood cultures are growing Klebsiella sensitive to Levaquin. Continue Levaquin until 05/07/2016. (3) Coagulopathy Is this a current diagnosis for this admission?: YesPlan: Coumadin discontinued. Coagulopathy corrected with FFP and vitamin K. Patient was started on Eliquis, however she has had continued decline in hemoglobin and hematocrit since restarting anticoagulation. I discontinued Eliquis and hold off on further anticoagulation until H&H stable and source of anemia is identified. (4) Atrial fibrillation Qualifiers: Atrial fibrillation type: paroxysmal Qualified Code(s): I48.0 - Paroxysmal atrial fibrillation Is this a current diagnosis for this admission?: YesPlan: Patient has continued issues with rapid ventricular response. 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 Thyroid function studies normal. Continue Cardizem CD 360 mg daily. Coumadin discontinued secondary to coagulopathy. Patient's echocardiogram last year shows no valvular heart disease. Discontinued Eliquis secondary to anemia requiring transfusion. (5) Hypertension Is this a current diagnosis for this admission?: Yes (6) Iron deficiency anemia Is this a current diagnosis for this admission?: YesPlan: Patient is status post 4 units PRBC this admission. Discontinued anticoagulation. Hemoccult stools. Continue to monitor H&H for stability. Patient has never had colonoscopy. She denies melena. I will consult Dr. Saunders of GI on 05/07/2015 for colonoscopy and EGD. Continue iron sulfate 325 mg daily. (7) Sacral decubitus ulcer, stage IV Is this a current diagnosis for this admission?: Yes (8) Paraplegia Is this a current diagnosis for this admission?: YesPlan: Continue supportive care. Patient normally resides at home with home health services. (9) Hypokalemia Is this a current diagnosis for this admission?: YesPlan: Corrected. Continue KCL 20meq daily. Follow up labs. (10) Hypomagnesemia Is this a current diagnosis for this admission?: YesPlan: Corrected. Continue scheduled magnesium supplementation. (11) Hematoma of arm Is this a current diagnosis for this admission?: Yes (12) Full code status Is this a current diagnosis for this admission?: Yes - Time Time Spent with patient: 25-34 minutes
[2016-05-06 06:21] LABS: ABSOLUTE EOSINOPHILS # (AUTO) 0.1 10^3/uL (0.0-0.6); ABSOLUTE LYMPHOCYTES (AUTO) 1.8 10^3/uL (0.5-4.7); ABSOLUTE MONOCYTES (AUTO) 0.9 10^3/uL (0.1-1.4); ABSOLUTE NEUT (AUTO) 5.4 10^3/uL (1.7-8.2); BASOPHILS % (AUTO) 0.4 % (0-2); EOSINOPHILS % (AUTO) 1.5 % (0-6); HEMATOCRIT 30.7 % (36.0-47.0); HEMOGLOBIN 9.7 g/dL (12.0-15.5); HGB HCT DIFFERENCE -1.6; LYMPHOCYTES % (AUTO) 21.9 % (13-45); MEAN CORPUSCULAR HEMOGLOBIN 25.6 pg (27.0-33.4); MEAN CORPUSCULAR HGB CONC 31.5 g/dL (32.0-36.0); MEAN CORPUSCULAR VOLUME 81 fl (80-97); MONOCYTES % (AUTO) 11.1 % (3-13); RED BLOOD COUNT 3.78 10^6/uL (3.72-5.28); RED CELL DISTRIBUTION WIDTH 22.1 % (11.5-14.0); SEGMENTED NEUTROPHILS % (AUTO) 65.1 % (42-78); WHITE BLOOD COUNT 8.3 10^3/uL (4.0-10.5)
[2016-05-06 06:38] LABS: APPEARANCE,URINE CLEAR; BILIRUBIN,URINE NEGATIVE (NEGATIVE); GLUCOSE, URINE NEGATIVE (NEGATIVE); KETONES,URINE NEGATIVE (NEGATIVE); LEUKOCYTE ESTERASE,URINE TRACE (NEGATIVE); NITRITE,URINE NEGATIVE (NEGATIVE); PROTEIN,URINE NEGATIVE (NEGATIVE); URINE SPECIFIC GRAVITY 1.011; UROBILINOGEN,URINE NEGATIVE mg/dL (<2.0)
[2016-05-06 06:53] LABS: ANION GAP 8 (5-19); BLOOD UREA NITROGEN 13 mg/dL (7-20); CALCIUM 8.8 mg/dL (8.4-10.2); CARBON DIOXIDE 32 mmol/L (22-30); CHLORIDE 103 mmol/L (98-107); CREATININE RESULT 0.59 mg/dL (0.52-1.25); GLUCOSE 89 mg/dL (75-110); POTASSIUM 4.2 mmol/L (3.6-5.0); SODIUM 143.4 mmol/L (137-145)
[2016-05-06] MEDS: LANSOPRAZOLE 30 MG TAB.RAP.DR PO SCH (08:08)
[2016-05-06] MEDS: FERROUS SULFATE 325 MG TABLET PO SCH (09:25)
[2016-05-06] MEDS: DOCUSATE SODIUM 100 MG CAPSULE PO SCH ×2 (09:25→18:08)
[2016-05-06] MEDS: POTASSIUM CHLORIDE 10 MEQ TABLET.SA PO SCH (09:26)
[2016-05-06] MEDS: DILTIAZEM HCL 180 MG CAPSULE.CR PO SCH (09:26)
[2016-05-06] MEDS: BACLOFEN 10 MG TABLET PO SCH (09:26)
[2016-05-06] MEDS: LEVOFLOXACIN 750 MG TABLET PO SCH (09:27)
[2016-05-06] MEDS: OXYBUTYNIN CHLORIDE 5 MG TABLET PO SCH ×2 (09:27→18:08)
[2016-05-06] MEDS: MAGNESIUM OXIDE 400 MG TABLET PO SCH ×2 (09:27→18:08)
[2016-05-06] MEDS ORDERED: FERUMOXYTOL (NON-ESRD) 510 MG/NS 100 ML IV ONE ×2 (11:00)
[2016-05-06] MEDS ORDERED: FERUMOXYTOL 510 MG/17 ML IV ONE (11:00)
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
[2016-05-06] MEDS ORDERED: PEG 3350/NA SULF,BICARB,CL/KCL 4000 ML PO ONE (16:00)
[2016-05-06] MEDS: SILVER SULFADIAZINE 1% CREAM 25 GM TP SCH (16:10)
--- NOTE | 2016-05-06 18:32 | PDOC PROGRESS REPORT ---
Subjective Progress Note for:: 05/06/16 Subjective:: Patient has no complaints. Patient denies fever, chills, headache, new focal weakness, chest pain, shortness of breath, abdominal pain, nausea, vomiting, diarrhea, constipation. Physical Exam Vital Signs: Temp Pulse Resp BP Pulse Ox 98.3 F 85 18 106/56 L 99 05/06/16 14:49 05/06/16 14:49 05/06/16 14:49 05/06/16 14:49 05/06/16 14:49 Intake & Output 05/05/16 05/06/16 05/07/16 06:59 06:59 06:59 Intake Total 780 1040 1300 Output Total 3150 3050 1800 Balance -2369 Weight 90.2 kg 90.2 kg GENERAL: No acute distress HEENT: Conjunctiva clear, nonicteric, moist mucous membranes, no JVD, midline trachea RESPIRATORY: Clear to auscultation bilaterally, no wheezes, no rhonchi CARDIAC: Irregularly irregular ABDOMEN: Soft, nondistended, nontender, positive bowel sounds, no rebound, no guarding. Suprapubic catheter EXTREMETIES: No edema, cyanosis, clubbing NEUROLOGIC: Alert, oriented to person/place/time, CN's grossly intact, paraplegia SKIN: Hematoma over left tricep PSYCH: Normal mood, normal affect Results Laboratory Results: 05/06/16 05:50 05/06/16 05:50 05/05/16 05/06/16 05/06/16 23:35 05:50 05:50 WBC 8.3 RBC 3.78 Hgb 9.7 L Hct 30.7 L MCV 81 MCH 25.6 L MCHC 31.5 L RDW 22.1 H Plt Count 396 Seg Neutrophils % 65.1 Lymphocytes % 21.9 Monocytes % 11.1 Eosinophils % 1.5 Basophils % 0.4 Absolute Neutrophils 5.4 Absolute Lymphocytes 1.8 Absolute Monocytes 0.9 Absolute Eosinophils 0.1 Absolute Basophils 0.0 Sodium 143.4 Potassium 4.2 Chloride 103 Carbon Dioxide 32 H Anion Gap 8 BUN 13 Creatinine 0.59 Est GFR ( Amer) > 60 Est GFR (Non-Af Amer) > 60 Glucose 89 Calcium 8.8 Urine Color Urine Appearance Urine pH Ur Specific [place] Urine Protein Urine Glucose (UA) Urine Ketones Urine Blood Urine Nitrite Ur Leukocyte Esterase Urine WBC (Auto) Urine RBC (Auto) Stool Occult Blood POSITIVE 05/06/16 05:55 WBC RBC Hgb Hct MCV MCH MCHC RDW Plt Count Seg Neutrophils % Lymphocytes % Monocytes % Eosinophils % Basophils % Absolute Neutrophils Absolute Lymphocytes Absolute Monocytes Absolute Eosinophils Absolute Basophils Sodium Potassium Chloride Carbon Dioxide Anion Gap BUN Creatinine Est GFR ( Amer) Est GFR (Non-Af Amer) Glucose Calcium Urine Color YELLOW Urine Appearance CLEAR Urine pH 8.0 Ur Specific [place] 1.011 Urine Protein NEGATIVE Urine Glucose (UA) NEGATIVE Urine Ketones NEGATIVE Urine Blood SMALL H Urine Nitrite NEGATIVE Ur Leukocyte Esterase TRACE H Urine WBC (Auto) 12 Urine RBC (Auto) 4 Stool Occult Blood Impressions: Chest X-Ray 04/28/16 11:23 IMPRESSION: Appropriate right IJ line. No complication. Stable chest otherwise. Assessment & Plan - Diagnosis (1) Sepsis Qualifiers: Sepsis type: sepsis due to unspecified organism Qualified Code(s): A41.9 - Sepsis, unspecified organism Is this a current diagnosis for this admission?: YesPlan: Resolved. (2) Complicated UTI (urinary tract infection) Is this a current diagnosis for this admission?: YesPlan: Patient has urinary tract infection complicated by chronic suprapubic catheter. Blood cultures are growing Klebsiella sensitive to Levaquin. Continue Levaquin until 05/07/2016. (3) Coagulopathy Is this a current diagnosis for this admission?: YesPlan: Coumadin discontinued. Coagulopathy corrected with FFP and vitamin K. Patient was started on Eliquis, however she has had continued decline in hemoglobin and hematocrit since restarting anticoagulation. I discontinued Eliquis and hold off on further anticoagulation until H&H stable and source of anemia is identified. (4) Atrial fibrillation Qualifiers: Atrial fibrillation type: paroxysmal Qualified Code(s): I48.0 - Paroxysmal atrial fibrillation Is this a current diagnosis for this admission?: YesPlan: Patient has continued issues with rapid ventricular response. 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 Thyroid function studies normal. Continue Cardizem CD 360 mg daily. Coumadin discontinued secondary to coagulopathy. Patient's echocardiogram last year shows no valvular heart disease. Discontinued Eliquis secondary to anemia requiring transfusion. (5) Iron deficiency anemia Is this a current diagnosis for this admission?: YesPlan: Patient is status post 4 units PRBC this admission. Discontinued anticoagulation. Hemoccult stools. Continue to monitor H&H for stability. Patient has never had colonoscopy. She denies melena. Dr. Li of GI planning EGD/colonoscopy. Continue iron sulfate 325 mg daily. (6) Hypertension Is this a current diagnosis for this admission?: Yes (7) Sacral decubitus ulcer, stage IV Is this a current diagnosis for this admission?: Yes (8) Paraplegia Is this a current diagnosis for this admission?: YesPlan: Continue supportive care. Patient normally resides at home with home health services. (9) Hypokalemia Is this a current diagnosis for this admission?: YesPlan: Corrected. Continue KCL 20meq daily. Follow up labs. (10) Hypomagnesemia Is this a current diagnosis for this admission?: YesPlan: Corrected. Continue scheduled magnesium supplementation. (11) Hematoma of arm Is this a current diagnosis for this admission?: YesPlan: Patient has a hematoma of her left arm this seems to have occurred spontaneously secondary to profound coagulopathy. This is fairly small in size measuring approximately 2 cm. I would imagine this will resolve spontaneously now the coagulopathy has been corrected and anticoagulation has been discontinued for now. (12) Full code status Is this a current diagnosis for this admission?: Yes - Time Time Spent with patient: 35 or more minutes Anticipated discharge: Home Within: within 72 hours
[2016-05-07] MEDS: ONDANSETRON HCL INJ/PF 4 MG/2 ML SDV IV PRN ×3 (03:45→23:01)
[2016-05-07 05:17] LABS: ABSOLUTE EOSINOPHILS # (AUTO) 0.1 10^3/uL (0.0-0.6); ABSOLUTE LYMPHOCYTES (AUTO) 1.8 10^3/uL (0.5-4.7); ABSOLUTE MONOCYTES (AUTO) 0.6 10^3/uL (0.1-1.4); ABSOLUTE NEUT (AUTO) 4.1 10^3/uL (1.7-8.2); BASOPHILS % (AUTO) 0.2 % (0-2); EOSINOPHILS % (AUTO) 0.8 % (0-6); HEMATOCRIT 32.1 % (36.0-47.0); HEMOGLOBIN 10.2 g/dL (12.0-15.5); HGB HCT DIFFERENCE -1.5; LYMPHOCYTES % (AUTO) 27.4 % (13-45); MEAN CORPUSCULAR HEMOGLOBIN 25.5 pg (27.0-33.4); MEAN CORPUSCULAR HGB CONC 31.8 g/dL (32.0-36.0); MEAN CORPUSCULAR VOLUME 80 fl (80-97); MONOCYTES % (AUTO) 8.7 % (3-13); RED BLOOD COUNT 4.01 10^6/uL (3.72-5.28); RED CELL DISTRIBUTION WIDTH 22.1 % (11.5-14.0); SEGMENTED NEUTROPHILS % (AUTO) 62.9 % (42-78); WHITE BLOOD COUNT 6.6 10^3/uL (4.0-10.5)
[2016-05-07 05:36] LABS: ANION GAP 10 (5-19); BLOOD UREA NITROGEN 10 mg/dL (7-20); CALCIUM 9.1 mg/dL (8.4-10.2); CARBON DIOXIDE 33 mmol/L (22-30); CHLORIDE 101 mmol/L (98-107); GLUCOSE 98 mg/dL (75-110); POTASSIUM 4.1 mmol/L (3.6-5.0); SODIUM 143.7 mmol/L (137-145)
[2016-05-07] MEDS ORDERED: MAGNESIUM CITRATE 296 ML BOTTLE PO ONE ×2 (06:30→18:30)
[2016-05-07] MEDS: POTASSIUM CHLORIDE 10 MEQ TABLET.SA PO SCH (09:16)
[2016-05-07] MEDS: DILTIAZEM HCL 180 MG CAPSULE.CR PO SCH (09:17)
[2016-05-07] MEDS: DOCUSATE SODIUM 100 MG CAPSULE PO SCH ×2 (09:17→18:00)
[2016-05-07] MEDS: FERROUS SULFATE 325 MG TABLET PO SCH (09:17)
[2016-05-07] MEDS: LANSOPRAZOLE 30 MG TAB.RAP.DR PO SCH (09:17)
[2016-05-07] MEDS: OXYBUTYNIN CHLORIDE 5 MG TABLET PO SCH ×2 (09:17→18:00)
[2016-05-07] MEDS: MAGNESIUM OXIDE 400 MG TABLET PO SCH ×2 (09:17→18:00)
[2016-05-07] MEDS: BACLOFEN 10 MG TABLET PO SCH (09:19)
[2016-05-07] MEDS: SILVER SULFADIAZINE 1% CREAM 25 GM TP SCH (09:20)
[2016-05-07] MEDS ORDERED: NALOXONE HCL INJ/PF 0.4 MG/1 ML SDV ONE (12:52)
[2016-05-07] MEDS ORDERED: ONDANSETRON HCL INJ/PF 4 MG/2 ML SDV ONE (12:52)
[2016-05-07] MEDS ORDERED: PROMETHAZINE HCL INJ 25 MG/1 ML VIAL ONE (12:52)
[2016-05-07] MEDS ORDERED: DIPHENHYDRAMINE HCL 50 MG/ML VIAL ONE (12:52)
[2016-05-07] MEDS ORDERED: FLUMAZENIL INJ 0.5 MG/5 ML VIAL IV ONE (12:53)
[2016-05-07] MEDS ORDERED: MIDAZOLAM 2 MG/2 ML INJ ONE (12:53)
[2016-05-07] MEDS ORDERED: EPINEPHRINE INJ 1 MG/10 ML DISP.SYRIN ONE (12:53)
[2016-05-07] MEDS ORDERED: FENTANYL CITRATE INJ/PF 100 MCG/2 ML AMPUL ONE (12:53)
[2016-05-07] MEDS ORDERED: GLUCAGON,HUMAN RECOMB 1 MG INJ ONE (12:53)
--- NOTE | 2016-05-07 13:52 | Operative Report ---
Operative Report DATE OF SURGERY: 05/07/16 Operative Report: The risks benefits and alternatives of the procedure explained to the patient in detail and informed consent is obtained that GIF Olympus video scope was inserted into the patient's mouth and hypopharynx the esophagus is identified intubated and insufflated the scope was then advanced through the esophagus stomach and duodenum retroflexion maneuver is done the esophagus stomach and first and second portions of the duodenum examined PREOPERATIVE DIAGNOSIS: GI bleeding. Patient did not have any results from her colon prep will need to postpone colonoscopy until tomorrow POSTOPERATIVE DIAGNOSIS: Gastritis biopsies obtained OPERATION: EGD with biopsy SURGEON: TIKI BAILON ANESTHESIA: Moderate Sedation - 2 mg of Versed, 50 g of fentanyl. TISSUE REMOVED OR ALTERED: Gastric specimen obtained rule out Helicobacter pylori COMPLICATIONS: None. ESTIMATED BLOOD LOSS: none. INTRAOPERATIVE FINDINGS: As described above. Normal esophagus. No upper GI bleeding. Normal duodenum. Gastritis PROCEDURE: Patient tolerated the procedure well. No immediate postprocedure complications are noted. Patient sent back to her room in good condition. Clear liquids for meals. Additional prep required We'll give her 5 mg of IV Reglan to stimulate some peristalsis. Other recommendations to follow. Await on biopsies
[2016-05-07] MEDS ORDERED: LACTULOSE SYRUP 20 GM/30 ML UDCUP PR ONE (14:00)
[2016-05-07] MEDS ORDERED: METOCLOPRAMIDE HCL INJ/PF 10 MG/2 ML SDV IV ONE (18:30)
--- NOTE | 2016-05-07 22:50 | PDOC PROGRESS REPORT ---
Subjective Progress Note for:: 05/07/16 Subjective:: Patient reports she is yet to have a bowel movement after having received magnesium citrate and GoLYTELY. She is having some abdominal discomfort. Patient denies chest pain, shortness of breath, nausea, vomiting, fevers, chills , diarrhea, headache, new onset weakness. Physical Exam Vital Signs: Temp Pulse Resp BP Pulse Ox 98.3 F 106 H 20 134/110 H 96 05/07/16 03:52 05/07/16 03:52 05/07/16 03:52 05/07/16 03:52 05/07/16 03:52 Intake & Output 05/06/16 05/07/16 05/08/16 06:59 06:59 06:59 Intake Total 1040 2419 Output Total 3050 6805 Weight 90.2 kg 90.2 kg Exam: General: Awake alert and oriented x3, no acute respiratory distress HEENT: AT/NC, PERRL, EOMI, oropharynx is moist, pale, no scleral icterus, no conjunctival injection Neck: No JVD, trachea midline Chest: Clear to auscultation bilaterally, no wheezes rhonchi or rales CV: Irregularly irregular Abdomen: Soft, nontender to palpation, slightly distended, very active bowel sounds; no rebound, rigidity, or guarding; suprapubic catheter in place Extremities: No cyanosis, clubbing or edema; muscle wasting of the bilateral lower extremities Neuro: Cranial nerves II through XII are grossly intact without focal deficits; awake alert and oriented x3; paraplegia Psych: Normal mood and affect Skin: 2 cm hematoma on the triceps of the left arm Results Laboratory Results: 05/07/16 04:30 05/07/16 04:30 05/07/16 05/07/16 04:30 04:30 WBC 6.6 RBC 4.01 Hgb 10.2 L Hct 32.1 L MCV 80 MCH 25.5 L MCHC 31.8 L RDW 22.1 H Plt Count 410 Seg Neutrophils % 62.9 Lymphocytes % 27.4 Monocytes % 8.7 Eosinophils % 0.8 Basophils % 0.2 Absolute Neutrophils 4.1 Absolute Lymphocytes 1.8 Absolute Monocytes 0.6 Absolute Eosinophils 0.1 Absolute Basophils 0.0 Sodium 143.7 Potassium 4.1 Chloride 101 Carbon Dioxide 33 H Anion Gap 10 BUN 10 Creatinine 0.50 L Est GFR ( Amer) > 60 Est GFR (Non-Af Amer) > 60 Glucose 98 Calcium 9.1 Impressions: Chest X-Ray 04/28/16 11:23 IMPRESSION: Appropriate right IJ line. No complication. Stable chest otherwise. Assessment & Plan - Diagnosis (1) GI bleeding Qualifiers: GI bleed type/associated pathology: unspecified gastrointestinal hemorrhage type Qualified Code(s): K92.2 - Gastrointestinal hemorrhage, unspecified Is this a current diagnosis for this admission?: YesPlan: Patient is pending upper and lower endoscopy today due to her drifting hemoglobin and occult positivity. Unable to anticoagulate patient who is high risk for clot and A. fib complications. Appreciate GI recommendations (2) Septic shock Is this a current diagnosis for this admission?: YesPlan: Patient has briefly required levophed on 04/28/2016. Patient has been transitioned off of this. Patient suffers from complex UTI secondary to indwelling suprapubic catheter with Klebsiella pneumoniae. Patient has completed 7 days of therapy. (3) Coagulopathy Is this a current diagnosis for this admission?: YesPlan: Patient's Coumadin has been discontinued. Her coagulopathy corrected with FFP and vitamin K. Patient was initially started on Eliquis, but continued to have an appreciable decline in her H&H. Patient is pending upper and lower GI for source of bleeding. (4) Complicated UTI (urinary tract infection) Is this a current diagnosis for this admission?: Yes (5) Atrial fibrillation Qualifiers: Atrial fibrillation type: paroxysmal Qualified Code(s): I48.0 - Paroxysmal atrial fibrillation Is this a current diagnosis for this admission?: YesPlan: Patient suffered from several issues with A. fib with RVR. 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 Patient's currently rate controlled on Cardizem. Anticoagulation has been discontinued secondary to ongoing blood losses and initial coagulopathy. Recommendations for ongoing anticoagulation her pending results of her endoscopy. (6) Hypertension Is this a current diagnosis for this admission?: Yes (7) Iron deficiency anemia Qualifiers: Iron deficiency anemia type: chronic blood loss Qualified Code(s): D50.0 - Iron deficiency anemia secondary to blood loss (chronic) Is this a current diagnosis for this admission?: YesPlan: Patient likely has iron deficiency anemia secondary to acute and chronic blood loss. (8) Paraplegia Is this a current diagnosis for this admission?: Yes (9) Sacral decubitus ulcer, stage IV Is this a current diagnosis for this admission?: YesPlan: Patient's ulceration was previously a stage IV currently appears to be stage III healing. Will continue dressing changes per wound care clinic recommendations. (10) Full code status Is this a current diagnosis for this admission?: Yes (11) Severe obesity (BMI 35.0-39.9) with comorbidity Is this a current diagnosis for this admission?: YesPlan: Dietary recommendations - Time Time Spent with patient: 25-34 minutes Medications reviewed and adjusted accordingly: Yes Anticipated discharge: Home with Homehealth Within: within 48 hours
--- NOTE | 2016-05-08 08:59 | PDOC PROGRESS REPORT ---
Subjective Progress Note for:: 05/08/16 Subjective:: Patient not able to tolerate prep. Also probably has poor overall motility in the colon, she starting to have bowel movements,It is not clear enough to undergo colonoscopy. She was given some Reglan and another bottle of magnesium citrate yesterday. Did not seem to help. She is now nauseated and not able to tolerate any more. I spoke with Dr. Carlson. We'll go ahead and give her some medications for nausea and repeat another gallon of GoLYTELY. Likely will not be able to undergo colonoscopy at least until tomorrow the day after. Hold off on any anticoagulation at that point in time. Physical Exam Vital Signs: Temp Pulse Resp BP Pulse Ox 98.2 F 69 17 147/75 H 97 05/08/16 07:26 05/08/16 07:26 05/08/16 07:26 05/08/16 07:26 05/08/16 07:26 Intake & Output 05/07/16 05/08/16 05/09/16 06:59 06:59 06:59 Intake Total 2419 1577 Output Total 4125 3050 Balance -1706 -1473 Weight 90.2 kg 89.7 kg General appearance: PRESENT: no acute distress Head exam: PRESENT: atraumatic, normocephalic Eye exam: PRESENT: EOMI, PERRLA. ABSENT: nystagmus, periorbital swelling Neck exam: ABSENT: meningismus, tenderness, thyromegaly Respiratory exam: PRESENT: symmetrical, unlabored. ABSENT: chest wall tenderness, wheezes Cardiovascular exam: PRESENT: RRR, +S1, +S2 GI/Abdominal exam: PRESENT: soft. ABSENT: ascites, Hickman's sign, rebound, rigid, tenderness Neurological exam: PRESENT: alert, awake, oriented to time, oriented to situation, CN II-XII grossly intact Psychiatric exam: PRESENT: appropriate affect Skin exam: PRESENT: normal color. ABSENT: mottled, pallor, petechiae, urticaria , vesicles Results Laboratory Results: 05/07/16 04:30 05/07/16 04:30 05/07/16 15:05 Stool Occult Blood POSITIVE Impressions: Chest X-Ray 04/28/16 11:23 IMPRESSION: Appropriate right IJ line. No complication. Stable chest otherwise. KUB X-Ray 05/07/16 00:00 IMPRESSION: Massive amount of stool in the rectosigmoid Dilatation of small bowel out of proportion to stomach and colon, question ileus versus small-bowel obstruction Assessment & Plan - Diagnosis (1) Anemia Qualifiers: Anemia type: unspecified type Qualified Code(s): D64.9 - Anemia, unspecified Is this a current diagnosis for this admission?: YesPlan: Probable GI bleed, negative EGD. Will need colonoscopy. However patient not able to be prep due to multiple factors including inability to tolerate prep, poor colon motility, lack of ability for ambulation We'll cancel procedure for today and anticipate hopefully that being done with much better prep in the next day or so. (2) GI bleeding Qualifiers: GI bleed type/associated pathology: unspecified gastrointestinal hemorrhage type Qualified Code(s): K92.2 - Gastrointestinal hemorrhage, unspecified Is this a current diagnosis for this admission?: YesPlan: Hold off on anticoagulation Transfuse as needed - Time Time Spent with patient: 15-24 minutes
[2016-05-08 09:10] LABS: HEMATOCRIT 34.2 % (36.0-47.0); HEMOGLOBIN 11.1 g/dL (12.0-15.5); HGB HCT DIFFERENCE -0.9; MEAN CORPUSCULAR HEMOGLOBIN 25.7 pg (27.0-33.4); MEAN CORPUSCULAR HGB CONC 32.3 g/dL (32.0-36.0); MEAN CORPUSCULAR VOLUME 80 fl (80-97); RED CELL DISTRIBUTION WIDTH 22.3 % (11.5-14.0); WHITE BLOOD COUNT 11.7 10^3/uL (4.0-10.5)
[2016-05-08] MEDS: DILTIAZEM HCL 180 MG CAPSULE.CR PO SCH (09:53)
[2016-05-08] MEDS: DOCUSATE SODIUM 100 MG CAPSULE PO SCH ×2 (09:54→17:51)
[2016-05-08] MEDS: BACLOFEN 10 MG TABLET PO SCH (09:54)
[2016-05-08] MEDS: MAGNESIUM OXIDE 400 MG TABLET PO SCH ×2 (09:54→17:51)
[2016-05-08] MEDS: LANSOPRAZOLE 30 MG TAB.RAP.DR PO SCH (09:54)
[2016-05-08] MEDS: OXYBUTYNIN CHLORIDE 5 MG TABLET PO SCH ×2 (09:54→17:52)
[2016-05-08] MEDS: FERROUS SULFATE 325 MG TABLET PO SCH (09:54)
[2016-05-08] MEDS: POTASSIUM CHLORIDE 10 MEQ TABLET.SA PO SCH (09:55)
[2016-05-08 11:44] LABS: ANION GAP 11 (5-19); BLOOD UREA NITROGEN 8 mg/dL (7-20); CALCIUM 9.4 mg/dL (8.4-10.2); CARBON DIOXIDE 31 mmol/L (22-30); CHLORIDE 101 mmol/L (98-107); CREATININE RESULT 0.53 mg/dL (0.52-1.25); GLUCOSE 87 mg/dL (75-110); POTASSIUM 4.6 mmol/L (3.6-5.0); SODIUM 142.6 mmol/L (137-145)
[2016-05-08] MEDS ORDERED: MAGNESIUM CITRATE 296 ML BOTTLE PO ONE ×3 (12:15→15:45)
[2016-05-08] MEDS ORDERED: BISACODYL 10 MG SUPP.RECT PR ONE (12:15)
[2016-05-08 13:31] LABS: APPEARANCE,URINE CLOUDY; BILIRUBIN,URINE NEGATIVE (NEGATIVE); GLUCOSE, URINE NEGATIVE (NEGATIVE); KETONES,URINE TRACE mg/dL (NEGATIVE); LEUKOCYTE ESTERASE,URINE TRACE (NEGATIVE); NITRITE,URINE NEGATIVE (NEGATIVE); PROTEIN,URINE NEGATIVE (NEGATIVE); URINE SPECIFIC GRAVITY 1.013; UROBILINOGEN,URINE NEGATIVE mg/dL (<2.0)
--- NOTE | 2016-05-08 14:05 | PDOC PROGRESS REPORT ---
Subjective Progress Note for:: 05/08/16 Subjective:: Patient had nausea and vomiting last night of dark possibly feculent material. She was unable to complete bowel prep. Patient not ready for colonoscopy today. Discussed with Dr. Li of GI. Patient denies current nausea. Patient denies chest pain, shortness of breath, abdominal pain, fevers, chills, diarrhea, headache, new onset weakness. Physical Exam Vital Signs: Temp Pulse Resp BP Pulse Ox 98.4 F 69 20 143/60 H 95 05/08/16 03:52 05/08/16 03:52 05/08/16 03:52 05/08/16 03:52 05/08/16 03:52 Intake & Output 05/07/16 05/08/16 05/09/16 06:59 06:59 06:59 Intake Total 2419 1577 Output Total 4129 4690 Balance -1701 -7958 Weight 90.2 kg 89.7 kg Exam: General: Awake alert and oriented x3, no acute respiratory distress HEENT: AT/NC, PERRL, EOMI, oropharynx is moist, pale, no scleral icterus, no conjunctival injection Neck: No JVD, trachea midline Chest: Clear to auscultation bilaterally, no wheezes rhonchi or rales CV: Irregularly irregular Abdomen: Soft, nontender to palpation, not distended, very active bowel sounds; no rebound, rigidity, or guarding; suprapubic catheter in place with sediment in urine Extremities: No cyanosis, clubbing or edema; muscle wasting of the bilateral lower extremities Neuro: Cranial nerves II through XII are grossly intact without focal deficits; awake alert and oriented x3; paraplegia Psych: Normal mood and affect Skin: 2 cm hematoma on the triceps of the left arm Results Laboratory Results: 05/07/16 04:30 05/07/16 04:30 05/07/16 15:05 Stool Occult Blood POSITIVE Impressions: Chest X-Ray 04/28/16 11:23 IMPRESSION: Appropriate right IJ line. No complication. Stable chest otherwise. KUB X-Ray 05/07/16 00:00 IMPRESSION: Massive amount of stool in the rectosigmoid Dilatation of small bowel out of proportion to stomach and colon, question ileus versus small-bowel obstruction Assessment & Plan - Diagnosis (1) GI bleeding Qualifiers: GI bleed type/associated pathology: gastritis Gastritis type: chronic gastritis Qualified Code(s): K29.51 - Unspecified chronic gastritis with bleeding Is this a current diagnosis for this admission?: YesPlan: Patient had what appears to be gastritis, but given her age and her persistent bleeding requires a more thorough evaluation. As patient's bleeding led to her A. fib with RVR. Patient will undergo repeat prep today and colonoscopy tomorrow. Continue to monitor H&H. (2) Septic shock Is this a current diagnosis for this admission?: YesPlan: Patient has briefly required levophed on 04/28/2016. Patient has been transitioned off of this. Patient suffers from complex UTI secondary to indwelling suprapubic catheter with Klebsiella pneumoniae. Patient has completed 7 days of therapy. Will resend culture today. (3) Coagulopathy Is this a current diagnosis for this admission?: YesPlan: Patient's Coumadin has been discontinued. Her coagulopathy corrected with FFP and vitamin K. Patient was initially started on Eliquis, but continued to have an appreciable decline in her H&H. Upper endoscopy reveals gastritis. Nothing actively bleeding. Patient is pending lower GI for source of bleeding. (4) Complicated UTI (urinary tract infection) Is this a current diagnosis for this admission?: YesPlan: Patient has urinary tract infection secondary to chronic indwelling suprapubic catheter. Patient grew Klebsiella pneumoniae. Compleated 7 days of therapy. Will resend UA and culture today. (5) Atrial fibrillation Qualifiers: Atrial fibrillation type: paroxysmal Qualified Code(s): I48.0 - Paroxysmal atrial fibrillation Is this a current diagnosis for this admission?: YesPlan: Patient suffered from several issues with A. fib with RVR. 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 Patient's currently rate controlled on Cardizem. Anticoagulation has been discontinued secondary to ongoing blood losses and initial coagulopathy. Recommendations for ongoing anticoagulation her pending results of her endoscopy. (6) Hypertension Is this a current diagnosis for this admission?: YesPlan: Well-controlled on Cardizem. (7) Iron deficiency anemia Qualifiers: Iron deficiency anemia type: chronic blood loss Qualified Code(s): D50.0 - Iron deficiency anemia secondary to blood loss (chronic) Is this a current diagnosis for this admission?: YesPlan: Patient likely has iron deficiency anemia secondary to acute and chronic blood loss. (8) Paraplegia Is this a current diagnosis for this admission?: Yes (9) Sacral decubitus ulcer, stage IV Is this a current diagnosis for this admission?: Yes (10) Full code status Is this a current diagnosis for this admission?: Yes (11) Severe obesity (BMI 35.0-39.9) with comorbidity Is this a current diagnosis for this admission?: Yes - Time Time Spent with patient: 25-34 minutes Medications reviewed and adjusted accordingly: Yes Anticipated discharge: Home with Homehealth Within: within 48 hours
[2016-05-08] MEDS: NORMAL SALINE 1000 ML 1,000 ML IV PRN (15:26)
[2016-05-08] MEDS: METOCLOPRAMIDE HCL INJ/PF 10 MG/2 ML SDV IV SCH ×3 (15:27→21:49)
[2016-05-08] MEDS: SILVER SULFADIAZINE 1% CREAM 25 GM TP SCH (17:53)
[2016-05-09] MEDS: NORMAL SALINE 1000 ML 1,000 ML IV PRN ×2 (03:07→15:16)
[2016-05-09] MEDS: LANSOPRAZOLE 30 MG TAB.RAP.DR PO SCH (08:07)
[2016-05-09] MEDS ORDERED: BISACODYL 10 MG SUPP.RECT PR PRN (10:27)
[2016-05-09] MEDS: METOCLOPRAMIDE HCL INJ/PF 10 MG/2 ML SDV IV SCH ×4 (10:56→22:46)
[2016-05-09] MEDS: DOCUSATE SODIUM 100 MG CAPSULE PO SCH ×2 (10:57→17:44)
[2016-05-09] MEDS: DILTIAZEM HCL 180 MG CAPSULE.CR PO SCH (10:57)
[2016-05-09] MEDS: MAGNESIUM OXIDE 400 MG TABLET PO SCH ×2 (10:59→17:44)
[2016-05-09] MEDS: FERROUS SULFATE 325 MG TABLET PO SCH (10:59)
[2016-05-09] MEDS: POTASSIUM CHLORIDE 10 MEQ TABLET.SA PO SCH (10:59)
[2016-05-09] MEDS: BACLOFEN 10 MG TABLET PO SCH (10:59)
[2016-05-09] MEDS: OXYBUTYNIN CHLORIDE 5 MG TABLET PO SCH ×2 (10:59→17:44)
[2016-05-09] MEDS: ONDANSETRON HCL INJ/PF 4 MG/2 ML SDV IV PRN (11:24)
[2016-05-09] MEDS ORDERED: PEG 3350/NA SULF,BICARB,CL/KCL 4000 ML PO ONE (11:30)
--- NOTE | 2016-05-09 12:55 | PDOC PROGRESS REPORT ---
Subjective Progress Note for:: 05/09/16 Subjective:: Patient's is stooling but it is not clear. Unable to have colonoscopy. Patient denies chest pain, shortness of breath, abdominal pain, nausea, vomiting, fevers , chills, constipation, headache, new onset weakness. Physical Exam Vital Signs: Temp Pulse Resp BP Pulse Ox 98.0 F 75 16 127/62 H 97 05/09/16 04:02 05/09/16 04:02 05/09/16 04:02 05/09/16 04:02 05/09/16 04:02 Intake & Output 05/08/16 05/09/16 05/10/16 06:59 06:59 06:59 Intake Total 1577 2455 Output Total 3050 2200 Balance -1473 255 Weight 89.7 kg 86.6 kg Exam: General: Awake alert and oriented x3, no acute respiratory distress HEENT: AT/NC, PERRL, EOMI, oropharynx is moist, pink, no scleral icterus, no conjunctival injection Neck: No JVD, trachea midline Chest: Clear to auscultation bilaterally, no wheezes rhonchi or rales CV: Irregularly irregular Abdomen: Soft, nontender to palpation, not distended, very active bowel sounds; no rebound, rigidity, or guarding; suprapubic catheter in place with clear yellow urine Extremities: No cyanosis, clubbing or edema; muscle wasting of the bilateral lower extremities Neuro: Cranial nerves II through XII are grossly intact without focal deficits; awake alert and oriented x3; paraplegia Psych: Normal mood and affect Skin: 2 cm hematoma on the triceps of the left arm, unchanged Results Laboratory Results: 05/08/16 08:40 05/08/16 11:01 05/08/16 05/08/16 05/08/16 08:40 08:40 11:01 WBC 11.7 H RBC 4.30 Hgb 11.1 L Hct 34.2 L MCV 80 MCH 25.7 L MCHC 32.3 RDW 22.3 H Plt Count 548 H Sodium Cancelled 142.6 Potassium Cancelled 4.6 Chloride Cancelled 101 Carbon Dioxide Cancelled 31 H Anion Gap Cancelled 11 BUN Cancelled 8 Creatinine Cancelled 0.53 Est GFR ( Amer) Cancelled > 60 Est GFR (Non-Af Amer) Cancelled > 60 Glucose Cancelled 87 Calcium Cancelled 9.4 Magnesium Urine Color Urine Appearance Urine pH Ur Specific [place] Urine Protein Urine Glucose (UA) Urine Ketones Urine Blood Urine Nitrite Ur Leukocyte Esterase Urine WBC (Auto) Urine RBC (Auto) Stool Occult Blood 05/08/16 05/08/16 05/08/16 11:01 13:03 15:00 WBC RBC Hgb Hct MCV MCH MCHC RDW Plt Count Sodium Potassium Chloride Carbon Dioxide Anion Gap BUN Creatinine Est GFR ( Amer) Est GFR (Non-Af Amer) Glucose Calcium Magnesium 2.1 Urine Color YELLOW Urine Appearance CLOUDY Urine pH 9.0 Ur Specific [place] 1.013 Urine Protein NEGATIVE Urine Glucose (UA) NEGATIVE Urine Ketones TRACE H Urine Blood NEGATIVE Urine Nitrite NEGATIVE Ur Leukocyte Esterase TRACE H Urine WBC (Auto) 14 Urine RBC (Auto) 1 Stool Occult Blood POSITIVE Impressions: Chest X-Ray 04/28/16 11:23 IMPRESSION: Appropriate right IJ line. No complication. Stable chest otherwise. KUB X-Ray 05/07/16 00:00 IMPRESSION: Massive amount of stool in the rectosigmoid Dilatation of small bowel out of proportion to stomach and colon, question ileus versus small-bowel obstruction Assessment & Plan - Diagnosis (1) GI bleeding Qualifiers: GI bleed type/associated pathology: gastritis Gastritis type: chronic gastritis Qualified Code(s): K29.51 - Unspecified chronic gastritis with bleeding Is this a current diagnosis for this admission?: YesPlan: Patient had what appears to be gastritis, but given her age and her persistent bleeding requires a more thorough evaluation. As patient's bleeding led to her A. fib with RVR. Patient will undergo repeat prep today and colonoscopy tomorrow. Continue to monitor H&H. (2) Septic shock Is this a current diagnosis for this admission?: YesPlan: Patient has briefly required levophed on 04/28/2016. Patient has been transitioned off of this. Patient suffers from complex UTI secondary to indwelling suprapubic catheter with Klebsiella pneumoniae. Patient has completed 7 days of therapy. Pending repeat culture today. (3) Coagulopathy Is this a current diagnosis for this admission?: YesPlan: Patient's Coumadin has been discontinued. Her coagulopathy corrected with FFP and vitamin K. Patient was initially started on Eliquis, but continued to have an appreciable decline in her H&H. Upper endoscopy reveals gastritis. Nothing actively bleeding. Patient is pending lower GI for source of bleeding. (4) Complicated UTI (urinary tract infection) Is this a current diagnosis for this admission?: YesPlan: Patient has urinary tract infection secondary to chronic indwelling suprapubic catheter. Patient grew Klebsiella pneumoniae. Completed 7 days of therapy. Pending culture. (5) Atrial fibrillation Qualifiers: Atrial fibrillation type: paroxysmal Qualified Code(s): I48.0 - Paroxysmal atrial fibrillation Is this a current diagnosis for this admission?: YesPlan: Patient suffered from several issues with A. fib with RVR. 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 Patient's currently rate controlled on Cardizem. Anticoagulation has been discontinued secondary to ongoing blood losses and initial coagulopathy. Recommendations for ongoing anticoagulation her pending results of her endoscopy. (6) Hypertension Qualifiers: Hypertension type: essential hypertension Qualified Code(s): I10 - Essential (primary) hypertension Is this a current diagnosis for this admission?: YesPlan: Well-controlled on Cardizem. (7) Iron deficiency anemia Qualifiers: Iron deficiency anemia type: chronic blood loss Qualified Code(s): D50.0 - Iron deficiency anemia secondary to blood loss (chronic) Is this a current diagnosis for this admission?: YesPlan: Patient likely has iron deficiency anemia secondary to acute and chronic blood loss. (8) Paraplegia Is this a current diagnosis for this admission?: Yes (9) Sacral decubitus ulcer, stage IV Is this a current diagnosis for this admission?: YesPlan: Patient's ulceration was previously a stage IV currently appears to be stage III healing. Will continue dressing changes per wound care clinic recommendations. (10) Full code status Is this a current diagnosis for this admission?: Yes (11) Severe obesity (BMI 35.0-39.9) with comorbidity Is this a current diagnosis for this admission?: Yes - Time Time Spent with patient: 25-34 minutes Medications reviewed and adjusted accordingly: Yes Anticipated discharge: Home Within: within 48 hours
--- NOTE | 2016-05-09 13:03 | PDOC PROGRESS REPORT ---
Subjective Progress Note for:: 05/09/16 Subjective:: The patient has now been cleaned out yet. She is starting to have bowel movements the prep is not clear and therefore would defer and procedure today. Did not only puts her at risk for perforation but if she has any bleeding site that is obscured it would probably be best. I spoke with Dr. Carlson, further prep will be given she'll need some more enemas Physical Exam Vital Signs: Temp Pulse Resp BP Pulse Ox 97.8 F 56 L 19 141/65 H 95 05/09/16 08:19 05/09/16 08:19 05/09/16 08:19 05/09/16 08:19 05/09/16 08:19 Intake & Output 05/08/16 05/09/16 05/10/16 06:59 06:59 06:59 Intake Total 1577 2455 237 Output Total 3050 2200 900 Balance -1473 255 -663 Weight 89.7 kg 86.6 kg General appearance: PRESENT: no acute distress, well-developed, well-nourished Head exam: PRESENT: atraumatic, normocephalic Eye exam: PRESENT: EOMI, PERRLA. ABSENT: nystagmus, periorbital swelling, scleral icterus Mouth exam: PRESENT: moist Throat exam: ABSENT: tonsillar exudate, tonsillogmegaly Neck exam: ABSENT: meningismus, tenderness, thyromegaly Respiratory exam: PRESENT: clear to auscultation fabio, symmetrical, unlabored. ABSENT: wheezes Cardiovascular exam: PRESENT: RRR, +S1, +S2 Pulses: PRESENT: normal carotid pulses GI/Abdominal exam: PRESENT: soft. ABSENT: Hickman's sign, rebound, tenderness Gentrourinary exam: ABSENT: lesions Neurological exam: PRESENT: alert, awake, oriented to time, oriented to situation, CN II-XII grossly intact. ABSENT: altered Psychiatric exam: PRESENT: appropriate affect Skin exam: PRESENT: normal color. ABSENT: mottled, pallor, petechiae, urticaria , vesicles Results Laboratory Results: 05/08/16 08:40 05/08/16 11:01 05/08/16 05/08/16 13:03 15:00 Urine Color YELLOW Urine Appearance CLOUDY Urine pH 9.0 Ur Specific [place] 1.013 Urine Protein NEGATIVE Urine Glucose (UA) NEGATIVE Urine Ketones TRACE H Urine Blood NEGATIVE Urine Nitrite NEGATIVE Ur Leukocyte Esterase TRACE H Urine WBC (Auto) 14 Urine RBC (Auto) 1 Stool Occult Blood POSITIVE Impressions: Chest X-Ray 04/28/16 11:23 IMPRESSION: Appropriate right IJ line. No complication. Stable chest otherwise. KUB X-Ray 05/07/16 00:00 IMPRESSION: Massive amount of stool in the rectosigmoid Dilatation of small bowel out of proportion to stomach and colon, question ileus versus small-bowel obstruction Assessment & Plan - Diagnosis (1) Anemia Qualifiers: Anemia type: unspecified type Qualified Code(s): D64.9 - Anemia, unspecified Is this a current diagnosis for this admission?: YesPlan: Likely due to acute and chronic causes. She's had a negative EGD will perform colonoscopy when her prep is clean. Further prep solution will be given today along with several more enemas. (2) GI bleeding Qualifiers: GI bleed type/associated pathology: gastritis Gastritis type: chronic gastritis Qualified Code(s): K29.51 - Unspecified chronic gastritis with bleeding Is this a current diagnosis for this admission?: YesPlan: Source currently unknown likely lower GI since she's had a negative upper endoscopy. - Time Time Spent with patient: 15-24 minutes
[2016-05-09] MEDS: SILVER SULFADIAZINE 1% CREAM 25 GM TP SCH (15:17)
[2016-05-10] MEDS: NORMAL SALINE 1000 ML 1,000 ML IV PRN ×2 (03:09→23:46)
[2016-05-10] MEDS ORDERED: NALOXONE HCL INJ/PF 0.4 MG/1 ML SDV ONE (10:11)
[2016-05-10] MEDS ORDERED: MIDAZOLAM 2 MG/2 ML INJ ONE (10:11)
[2016-05-10] MEDS ORDERED: DIPHENHYDRAMINE HCL 50 MG/ML VIAL ONE (10:11)
[2016-05-10] MEDS ORDERED: PROMETHAZINE HCL INJ 25 MG/1 ML VIAL ONE (10:11)
[2016-05-10] MEDS ORDERED: ONDANSETRON HCL INJ/PF 4 MG/2 ML SDV ONE (10:11)
[2016-05-10] MEDS ORDERED: EPINEPHRINE INJ 1 MG/10 ML DISP.SYRIN ONE (10:12)
[2016-05-10] MEDS ORDERED: FLUMAZENIL INJ 0.5 MG/5 ML VIAL IV ONE (10:12)
[2016-05-10] MEDS ORDERED: GLUCAGON,HUMAN RECOMB 1 MG INJ ONE (10:12)
[2016-05-10] MEDS ORDERED: FENTANYL CITRATE INJ/PF 100 MCG/2 ML AMPUL ONE (10:12)
--- NOTE | 2016-05-10 11:30 | Operative Report ---
Operative Report DATE OF SURGERY: 05/10/16 Operative Report: The risks, benefits and alternatives of the procedure including risks of bleeding, perforation requiring surgery are explained to the patient in detail and informed consent is obtained the patient is brought to the endoscopy suite. She is placed in a left lateral decubital position. Timeout is called. An Olympus videoscope was inserted into the patient's rectum. Keeping the lumen in site at all times the scope was then gradually advanced to some difficulty to the cecum this is due to the fact that the patient has a redundant colon. However the cecum was evaluated and identified by the usual anatomical landmarks of the ileocecal valve as well as the appendiceal office. Prep is actually good. Photodocumentation is obtained. The scope was then sequentially pulled back via the rest was of the colon including the ascending colon, hepatic flexure, transverse colon, splenic flexure, descending colon and finally into the rectosigmoid colon. Retroflexion maneuvers performed. PREOPERATIVE DIAGNOSIS: GI bleeding. Patient did not have any findings on her recent upper endoscopy to indicate acute bleeding POSTOPERATIVE DIAGNOSIS: 2 colon polyps. A sessile polyp was able to be removed in situ with biopsy forceps. The other requiring snare polypectomy for retrieval OPERATION: Colonoscopy with snare polypectomy. Colonoscopy with biopsy SURGEON: TIKI BAILON ANESTHESIA: Moderate Sedation - 2 mg of Versed, 50 g of fentanyl. TISSUE REMOVED OR ALTERED: Colon specimens obtained and retrieved COMPLICATIONS: None. ESTIMATED BLOOD LOSS: none. INTRAOPERATIVE FINDINGS: Redundant colon. No masses, AVMs, diverticulosis or bleeding lesions noted. No obstruction noted PROCEDURE: Patient tolerated the procedure well. No immediate postprocedure complications are noted. Patient is sent back to her room in good condition. She can resume her diet. No active bleeding is noted. We can tentatively restart her anticoagulation and see what happens. Further recommendations to follow.
[2016-05-10] MEDS: BACLOFEN 10 MG TABLET PO SCH (12:44)
[2016-05-10] MEDS: FERROUS SULFATE 325 MG TABLET PO SCH (12:45)
[2016-05-10] MEDS: OXYBUTYNIN CHLORIDE 5 MG TABLET PO SCH ×2 (12:45→17:33)
[2016-05-10] MEDS: LANSOPRAZOLE 30 MG TAB.RAP.DR PO SCH (12:45)
[2016-05-10] MEDS: MAGNESIUM OXIDE 400 MG TABLET PO SCH ×2 (12:46→17:33)
[2016-05-10] MEDS: DOCUSATE SODIUM 100 MG CAPSULE PO SCH ×2 (12:46→17:34)
[2016-05-10] MEDS: POTASSIUM CHLORIDE 10 MEQ TABLET.SA PO SCH (12:46)
[2016-05-10] MEDS: DILTIAZEM HCL 180 MG CAPSULE.CR PO SCH (12:47)
[2016-05-10] MEDS: METOCLOPRAMIDE HCL INJ/PF 10 MG/2 ML SDV IV SCH ×3 (12:59→23:46)
--- NOTE | 2016-05-10 16:57 | PDOC PROGRESS REPORT ---
Subjective Progress Note for:: 05/10/16 Subjective:: Patient reports she's feeling well. She is ready to have her colonoscopy today. Patient denies chest pain, shortness of breath, abdominal pain, nausea, vomiting, fevers, chills, diarrhea, constipation, headache, new onset weakness. Physical Exam Vital Signs: Temp Pulse Resp BP Pulse Ox 97.5 F 74 20 131/57 H 98 05/09/16 22:58 05/10/16 02:00 05/09/16 22:58 05/09/16 22:58 05/09/16 22:58 Intake & Output 05/09/16 05/10/16 05/11/16 06:59 06:59 06:59 Intake Total 2455 2070 Output Total 2200 1700 Balance 255 370 Weight 86.6 kg Exam: General: Awake alert and oriented x3, no acute respiratory distress HEENT: AT/NC, PERRL, EOMI, oropharynx is moist, pink, no scleral icterus, no conjunctival injection Neck: No JVD, trachea midline Chest: Clear to auscultation bilaterally, no wheezes rhonchi or rales CV: Irregularly irregular Abdomen: Soft, nontender to palpation, mildly distended, very active bowel sounds; no rebound, rigidity, or guarding; suprapubic catheter in place with clear yellow urine Extremities: No cyanosis, clubbing or edema; muscle wasting of the bilateral lower extremities Neuro: Cranial nerves II through XII are grossly intact without focal deficits; awake alert and oriented x3; paraplegia Psych: Normal mood and affect Results Laboratory Results: 05/08/16 08:40 05/08/16 11:01 05/08/16 13:03 Suprapubic Catheter Urine Culture - Final C.albicans/C.dubliniensis Impressions: Chest X-Ray 04/28/16 11:23 IMPRESSION: Appropriate right IJ line. No complication. Stable chest otherwise. KUB X-Ray 05/07/16 00:00 IMPRESSION: Massive amount of stool in the rectosigmoid Dilatation of small bowel out of proportion to stomach and colon, question ileus versus small-bowel obstruction Assessment & Plan - Diagnosis (1) GI bleeding Qualifiers: GI bleed type/associated pathology: gastritis Gastritis type: chronic gastritis Qualified Code(s): K29.51 - Unspecified chronic gastritis with bleeding Is this a current diagnosis for this admission?: YesPlan: Patient had what appears to be gastritis, but given her age and her persistent bleeding requires a more thorough evaluation. As patient's bleeding led to her A. fib with RVR. Patient will undergo colonoscopy today. Continue to monitor H&H. (2) Septic shock Is this a current diagnosis for this admission?: YesPlan: Patient has briefly required levophed on 04/28/2016. Patient has been transitioned off of this. Patient suffers from complex UTI secondary to indwelling suprapubic catheter with Klebsiella pneumoniae. Patient has completed 7 days of therapy. Repeat culture reveals [place] albicans. This is likely colonization. (3) Coagulopathy Is this a current diagnosis for this admission?: YesPlan: Patient's Coumadin has been discontinued. Her coagulopathy corrected with FFP and vitamin K. Patient was initially started on Eliquis, but continued to have an appreciable decline in her H&H. Upper endoscopy reveals gastritis. Nothing actively bleeding. Patient is pending lower GI for source of bleeding. (4) Complicated UTI (urinary tract infection) Is this a current diagnosis for this admission?: YesPlan: Patient has urinary tract infection secondary to chronic indwelling suprapubic catheter. Patient grew Klebsiella pneumoniae. Completed 7 days of therapy. Repeat culture grew [place] albicans (5) Atrial fibrillation Qualifiers: Atrial fibrillation type: paroxysmal Qualified Code(s): I48.0 - Paroxysmal atrial fibrillation Is this a current diagnosis for this admission?: YesPlan: Patient suffered from several issues with A. fib with RVR. 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 Patient's currently rate controlled on Cardizem. Anticoagulation has been discontinued secondary to ongoing blood losses and initial coagulopathy. Recommendations for ongoing anticoagulation her pending results of her endoscopy. (6) Hypertension Qualifiers: Hypertension type: essential hypertension Qualified Code(s): I10 - Essential (primary) hypertension Is this a current diagnosis for this admission?: Yes (7) Iron deficiency anemia Qualifiers: Iron deficiency anemia type: chronic blood loss Qualified Code(s): D50.0 - Iron deficiency anemia secondary to blood loss (chronic) Is this a current diagnosis for this admission?: Yes (8) Paraplegia Is this a current diagnosis for this admission?: Yes (9) Sacral decubitus ulcer, stage IV Is this a current diagnosis for this admission?: Yes (10) Full code status Is this a current diagnosis for this admission?: Yes (11) Severe obesity (BMI 35.0-39.9) with comorbidity Is this a current diagnosis for this admission?: Yes - Time Time Spent with patient: 15-24 minutes Medications reviewed and adjusted accordingly: Yes Anticipated discharge: Home Within: within 24 hours
[2016-05-10] MEDS: APIXABAN 2.5 MG TABLET PO SCH (17:32)
[2016-05-11] MEDS: SILVER SULFADIAZINE 1% CREAM 25 GM TP SCH (05:59)
[2016-05-11] MEDS: FERROUS SULFATE 325 MG TABLET PO SCH (08:59)
[2016-05-11] MEDS: LANSOPRAZOLE 30 MG TAB.RAP.DR PO SCH (08:59)
[2016-05-11] MEDS: DILTIAZEM HCL 180 MG CAPSULE.CR PO SCH (08:59)
[2016-05-11] MEDS: METOCLOPRAMIDE HCL INJ/PF 10 MG/2 ML SDV IV SCH (08:59)
[2016-05-11] MEDS: MAGNESIUM OXIDE 400 MG TABLET PO SCH (09:00)
[2016-05-11] MEDS: POTASSIUM CHLORIDE 10 MEQ TABLET.SA PO SCH (09:01)
[2016-05-11] MEDS: BACLOFEN 10 MG TABLET PO SCH (09:01)
[2016-05-11] MEDS: APIXABAN 2.5 MG TABLET PO SCH (09:01)
[2016-05-11] MEDS: OXYBUTYNIN CHLORIDE 5 MG TABLET PO SCH (09:01)
[2016-05-11] MEDS: DOCUSATE SODIUM 100 MG CAPSULE PO SCH (09:01)
[2016-05-11 10:18] LABS: ABSOLUTE EOSINOPHILS # (AUTO) 0.1 10^3/uL (0.0-0.6); ABSOLUTE LYMPHOCYTES (AUTO) 2.1 10^3/uL (0.5-4.7); ABSOLUTE MONOCYTES (AUTO) 0.6 10^3/uL (0.1-1.4); ABSOLUTE NEUT (AUTO) 3.1 10^3/uL (1.7-8.2); BASOPHILS % (AUTO) 0.6 % (0-2); EOSINOPHILS % (AUTO) 2.3 % (0-6); HEMATOCRIT 33.2 % (36.0-47.0); HEMOGLOBIN 10.3 g/dL (12.0-15.5); HGB HCT DIFFERENCE -2.3; LYMPHOCYTES % (AUTO) 35.4 % (13-45); MEAN CORPUSCULAR HEMOGLOBIN 25.7 pg (27.0-33.4); MEAN CORPUSCULAR HGB CONC 30.9 g/dL (32.0-36.0); MEAN CORPUSCULAR VOLUME 83 fl (80-97); MONOCYTES % (AUTO) 10.6 % (3-13); RED BLOOD COUNT 3.99 10^6/uL (3.72-5.28); RED CELL DISTRIBUTION WIDTH 22.3 % (11.5-14.0); SEGMENTED NEUTROPHILS % (AUTO) 51.1 % (42-78); WHITE BLOOD COUNT 6.1 10^3/uL (4.0-10.5)
[2016-05-11 10:47] VITALS: BP 130/64
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
== END 2016-05-11 12:10 | disposition home health service (06) | DRG 871 ==
LOC: ER 11:53 → EH 16:06 → UNDOADMIN 16:06 → EH 16:31 → 3N 17:05 → ICU 04-28 06:50 → 3N 04-29 17:54
PROVIDERS: ADMIT Family Medicine; ATTEND Family Medicine
PROC: 02HV33Z Insertion of Infusion Device into Superior Vena Cava, Percutaneous Approach (ICD-10-PCS; principal; 2016-04-28)
PROC: B548ZZA Ultrasonography of Superior Vena Cava, Guidance (ICD-10-PCS; 2016-04-28)
PROC: 30233N1 Transfusion of Nonautologous Red Blood Cells into Peripheral Vein, Percutaneous Approach (ICD-10-PCS; 2016-04-28)
PROC: 30233K1 Transfusion of Nonautologous Frozen Plasma into Peripheral Vein, Percutaneous Approach (ICD-10-PCS; 2016-04-30)
PROC: 0DB68ZX Excision of Stomach, Via Natural or Artificial Opening Endoscopic, Diagnostic (ICD-10-PCS; 2016-05-07)
PROC: 0DBN8ZZ Excision of Sigmoid Colon, Via Natural or Artificial Opening Endoscopic (ICD-10-PCS; 2016-05-10)
PROC: 0DBP8ZX Excision of Rectum, Via Natural or Artificial Opening Endoscopic, Diagnostic (ICD-10-PCS; 2016-05-10)
DX: A41.59 Other Gram-negative sepsis (principal); R65.21 Severe sepsis with septic shock; K29.51 Unspecified chronic gastritis with bleeding; L89.154 Pressure ulcer of sacral region, stage 4; T83.510A Infection and inflammatory reaction due to cystostomy catheter, initial encounter; N99.511 Cystostomy infection; N39.0 Urinary tract infection, site not specified; D68.9 Coagulation defect, unspecified; G82.20 Paraplegia, unspecified; I48.0 Paroxysmal atrial fibrillation; I10 Essential (primary) hypertension; D50.0 Iron deficiency anemia secondary to blood loss (chronic); E87.6 Hypokalemia; E83.42 Hypomagnesemia; M79.81 Nontraumatic hematoma of soft tissue; B96.1 Klebsiella pneumoniae [K. pneumoniae] as the cause of diseases classified elsewhere; K62.1 Rectal polyp; D12.5 Benign neoplasm of sigmoid colon; E66.01 Morbid (severe) obesity due to excess calories; Z68.37 Body mass index [BMI] 37.0-37.9, adult; Z79.02 Long term (current) use of antithrombotics/antiplatelets
CPT/HCPCS: 36415; 36430; 43239; 45380; 45385; 71010; 74000; 80048; 80053; 81001; 82272; 82550; 82553; 82607; 82728; 82746; 83010; 83540; 83550; 83605; 83615; 83690; 83735; 84439; 84443; 84466; 84481; 84484; 85025; 85027; 85045; 85362; 85384; 85610; 85730; 86850; 86900; 86901; 86920; 87040; 87077; 87086; 87088; 87186; 88305; 88342; 93005; 93010; 96361; 96365; 99285; C1751; J0171; J1200; J1267; J1610; J1642; J1940; J2250; J2310; J2405; J2543; J2550; J2765; J3010; J3370; J3430; J3475; J3480; J3490; J7030; J7060; P9016; P9017; P9047; Q0138; S0119

== ENCOUNTER 2016-09-17 06:41 | Day surgery (SDC) | payer MEDICARE, MEDICAID ==
[2016-09-12 09:52] LABS: HEMATOCRIT 34.5 % (36.0-47.0); HEMOGLOBIN 10.9 g/dL (12.0-15.5); HGB HCT DIFFERENCE -1.8; MEAN CORPUSCULAR HEMOGLOBIN 25.4 pg (27.0-33.4); MEAN CORPUSCULAR HGB CONC 31.5 g/dL (32.0-36.0); MEAN CORPUSCULAR VOLUME 81 fl (80-97); RED BLOOD COUNT 4.27 10^6/uL (3.72-5.28); WHITE BLOOD COUNT 3.8 10^3/uL (4.0-10.5)
[2016-09-12 10:16] LABS: ANION GAP 10 (5-19); BLOOD UREA NITROGEN 16 mg/dL (7-20); CALCIUM 10.2 mg/dL (8.4-10.2); CARBON DIOXIDE 26 mmol/L (22-30); CHLORIDE 106 mmol/L (98-107); CREATININE RESULT 0.48 mg/dL (0.52-1.25); GLUCOSE 97 mg/dL (75-110); POTASSIUM 4.3 mmol/L (3.6-5.0); SODIUM 142.4 mmol/L (137-145)
--- NOTE | 2016-09-12 18:35 | EKG REPORT ---
SEVERITY:- ABNORMAL ECG - SINUS RHYTHM SUPRAVENTRICULAR BIGEMINY BORDERLINE T ABNORMALITIES, ANT-LAT LEADS : Confirmed by: Oni Houston MD 12-Sep-2016 18:34:28
[~2016-09-17 06:41] MED LIST: LACTATED RINGERS 1000 ML IV PRN; LIDOCAINE 0.5% INJ-PF (5 MG/ML) 50 ML SDV SUBCUT PRN
[2016-09-17 07:47] LABS: PROTHROMBIN TIME 12.7 SEC (11.4-15.4)
[2016-09-17 07:48] LABS: PARTIAL THROMBOPLASTIN TIME 32.3 SEC (23.5-35.8)
[2016-09-17] MEDS ORDERED: LIDOCAINE 0.5% INJ-PF (5 MG/ML) 50 ML SDV ONE (07:49)
[2016-09-17] MEDS ORDERED: BACITRACIN INJ 50,000 UNIT VIAL ONE (07:49)
[2016-09-17] MEDS ORDERED: BUPIVACAINE HCL 0.25 % INJ/PF (2.5 MG/1 ML) 30 ML VIAL ONE (07:49)
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
[2016-09-17] MEDS ORDERED: MIDAZOLAM 2 MG/2 ML INJ ONE (08:20)
[2016-09-17] MEDS ORDERED: FENTANYL CITRATE INJ/PF 100 MCG/2 ML AMPUL ONE (08:20)
[2016-09-17] MEDS ORDERED: DEXMEDETOMIDINE INJ 80 MCG/20 ML VIAL IV ONE (08:20)
[2016-09-17] MEDS ORDERED: ACETAMINOPHEN 100 ML IV ONE (08:20)
[2016-09-17] MEDS ORDERED: PROPOFOL INJ 200 MG/20 ML VIAL IV ONE ×2 (08:20→08:31)
[2016-09-17] MEDS: CEFAZOLIN 1 GM/D5W RTU 1 GM/50 ML RTUPB IV PRN ×2 (08:43→13:51)
[2016-09-17] MEDS ORDERED: OXYCODONE-ACETAMINOPHEN 5-325 MG TABLET PO PRN ×2 (09:06)
[2016-09-17] MEDS ORDERED: ONDANSETRON HCL INJ/PF 4 MG/2 ML SDV IV PRN (09:06)
[2016-09-17] MEDS ORDERED: MORPHINE SULFATE 10 MG/ML INJ IV PRN (09:06)
[2016-09-17] MEDS ORDERED: MEPERIDINE HCL/PF INJ 25 MG/1 ML DISP.SYRIN IV PRN (09:06)
[2016-09-17] MEDS ORDERED: DIPHENHYDRAMINE HCL 50 MG/ML VIAL IV PRN (09:06)
[2016-09-17] MEDS ORDERED: FENTANYL CITRATE INJ/PF 100 MCG/2 ML AMPUL IV PRN ×3 (09:06)
[2016-09-17] MEDS ORDERED: PROMETHAZINE HCL INJ 25 MG/1 ML VIAL IV PRN ×2 (09:06)
[2016-09-17] MEDS ORDERED: COLLAGENASE CLOSTRIDIUM HIST. OINT 30 GM ONE (09:28)
--- NOTE | 2016-09-17 09:35 | Operative Report ---
Operative Report DATE OF SURGERY: 09/17/16 PREOPERATIVE DIAGNOSIS: 1 necrotic chronic wound of the right groin, labial area. 2. Paralysis. 3. Atrial fibrillation. POSTOPERATIVE DIAGNOSIS: 1 necrotic chronic wound of the right groin, labial area. Post debridement. 2. Paralysis. 3. Atrial fibrillation. 4. Hypertension. OPERATION: Mental right groin, labial area SURGEON: KHADIJAH ADAMS 1ST PLATER PRODUCTION: RUPESH FLORES ANESTHESIA: LMAC TISSUE REMOVED OR ALTERED: Necrotic subcutaneous tissue fascia of right and subcutaneous and pelvic area. COMPLICATIONS: None ESTIMATED BLOOD LOSS: 20 mL. INTRAOPERATIVE FINDINGS: Of a opening approximately 4 cm across and extending to a depth of at least 10 cm. This represents a part of the introitus and possibly rectum after surgeries over the years which have left the patient with an ostomy. Necrotic skin and subcutaneous tissues at the opening. Also necrotic tissue over bone anteriorly, probably over the ischial area. The underlying tissues exhibit granulation and good bleeding. Bleeding controlled with pressure and Surgicel. PROCEDURE: PROCEDURE: The groin and pelvic area prepared with [Betadine] and draped out with sterile linen. After the"universal time-out", in which it was confirmed that the patient [did receive antibiotic], the procedure commenced. The patient was appropriately anesthetized. The wound was probed. Elevated the wound was debrided of non viable tissue using[Rongeurs] with removal of loose debris, as well. The wound was irrigated with [Peroxide] . The wound was now irrigated with saline and [Surgicel] and the Santyl placed within it, dressed with [Kerlix] and the procedure concluded. The The operations and intelligence assistant provided retraction, thus facilitating the operative view. Controlled bleeding. and applied dressings.
--- NOTE | 2016-09-17 09:59 | EKG REPORT ---
SEVERITY:- ABNORMAL ECG - SINUS RHYTHM MULTIPLE ATRIAL PREMATURE COMPLEXES : Confirmed by: Trevor Phillip 17-Sep-2016 09:59:38
[2016-09-17] MEDS ORDERED: LIDOCAINE 2% INJ-PF (20 MG/ML) 10 ML AMPUL ONE (10:30)
[2016-09-17] MEDS ORDERED: METOCLOPRAMIDE HCL 10 MG TABLET PO PRN (15:32)
[2016-09-17] MEDS: POTASSIUM CHLORIDE 10 MEQ TABLET.SA PO SCH (17:50)
[2016-09-17] MEDS: MAGNESIUM OXIDE 400 MG TABLET PO SCH (17:50)
[2016-09-18 09:24] VITALS: BP 127/63
[2016-09-18] MEDS: POTASSIUM CHLORIDE 10 MEQ TABLET.SA PO SCH (09:55)
[2016-09-18] MEDS: MAGNESIUM OXIDE 400 MG TABLET PO SCH (09:55)
[2016-09-18] MEDS ORDERED: DILTIAZEM HCL 180 MG CAPSULE.CR PO SCH (10:00)
[2016-09-18] MEDS ORDERED: BACLOFEN 10 MG TABLET PO SCH (10:00)
[2016-09-18] MEDS ORDERED: OXYBUTYNIN CHLORIDE 5 MG TABLET PO SCH (10:00)
[2016-09-18] MEDS ORDERED: COLLAGENASE CLOSTRIDIUM HIST. OINT 30 GM TP SCH (10:00)
[2016-09-18] MEDS ORDERED: LANSOPRAZOLE 15 MG TAB.RAP.DR PO SCH (10:00)
--- NOTE | 2016-09-30 11:01 | DISCHARGE SUMMARY E ---
Discharge Summary NAME: JAMEL PHILLIPS : 1950 AGE: 66Y ADMITTED: 09/17/2016 DISCHARGED: 09/18/2016 ADMITTING DIAGNOSES: 1. Necrotic ulcer of the right ischial, labial, and groin area. 2. Paralysis. 3. Hypertension. 4. Atrial fibrillation. DISCHARGE DIAGNOSES: 1. Necrotic ulcer of the right ischial, labial, and groin area. 2. Paralysis. 3. Hypertension. 4. Atrial fibrillation. 5. Status post debridement. HISTORY AND PHYSICAL: Please see admission H and P. HOSPITAL COURSE: The patient was admitted and underwent surgical, sharp, excisional debridement of necrotic tissues in the right ischial, groin area. Post procedure she was recovered. Given the bleeding in the area, it was decided to admit the patient for further care. She was admitted and treated appropriately with her customary medications and pain medications. On the first, the dressing was removed and evaluated. No further bleeding was encountered. At this point, the patient had achieved maximal in hospital benefit and was discharged. Detailed discharge instructions are to be found in the discharge order set. DICTATING PHYSICIAN: KHADIJAH ADAMS M.D. [id number] PHY#: [id number] ID: [id number] JOB#: [id number] ACCT: [id number] cc:KHADIJAH ADAMS M.D. >
== END 2016-09-18 14:35 | disposition home health service (06) ==
LOC: OROUT 06:41 → 4S 11:10 → OROUT 09-18 14:35
PROVIDERS: ATTEND Surgery
PROC: 0JBC0ZZ Excision of Pelvic Region Subcutaneous Tissue and Fascia, Open Approach (ICD-10-PCS; principal; 2016-09-17 09:00)
DX: L98.499 Non-pressure chronic ulcer of skin of other sites with unspecified severity (principal); G82.20 Paraplegia, unspecified; I48.91 Unspecified atrial fibrillation; I10 Essential (primary) hypertension; Z88.7 Allergy status to serum and vaccine; Z79.01 Long term (current) use of anticoagulants; Z79.899 Other long term (current) drug therapy; Z87.891 Personal history of nicotine dependence
CPT/HCPCS: 93005 ×2; 36415 ×2; 84132; 85027; 85610; 85730; 80048; 88304 ×2; 93010 ×2; 11043; A9270 ×8; J2250; J3490 ×4; J0690; J3010; J2704; J0131; 940

== ENCOUNTER → 2016-10-07 | Outpatient (CLI) | payer MEDICARE, MEDICAID ==
--- NOTE | 2016-10-07 15:30 | RADIOLOGY REPORT (SQ) ---
EXAM DESCRIPTION: PELVIS AP COMPLETED DATE/TIME: 10/07/2016 3:20 pm REASON FOR STUDY: PRESSURE ULCER OF RIGHT BUTTOCK, STAGE 3 L89.313 PRESSURE ULCER OF RIGHT BUTTOCK, STAGE 3 COMPARISON: None. NUMBER OF VIEWS: One view TECHNIQUE: AP Pelvis LIMITATIONS: None. FINDINGS: MINERALIZATION: Osteopenia. HIPS: Degenerative joint changes seen each hip. PELVIS AND SACRUM: No acute fracture or dislocation. No worrisome bone lesions. PUBIS AND ISCHIUM: No acute fracture. No evidence of osteomyelitis. LOWER LUMBAR SPINE: No significant findings as visualized. SOFT TISSUES: No findings. OTHER: No other significant finding. IMPRESSION: 1. Degenerative joint changes in each hip. 2. There is no evidence of osteomyelitis. TECHNICAL DOCUMENTATION: JOB ID: [id number] [employer]- All Rights Reserved
== END ==
LOC: RAD 14:55
PROVIDERS: ATTEND Surgery
DX: L89.313 Pressure ulcer of right buttock, stage 3 (principal); M85.88 Other specified disorders of bone density and structure, other site; M16.0 Bilateral primary osteoarthritis of hip
CPT/HCPCS: 72170

== ENCOUNTER 2017-03-31 14:23 | Emergency (ER) | payer MEDICARE, MEDICAID ==
[2017-03-31] MEDS ORDERED: NORMAL SALINE 1000 ML 1,000 ML IV ONE (15:13)
[2017-03-31 16:22] LABS: APPEARANCE,URINE SLIGHTLY-CLOUDY; BILIRUBIN,URINE NEGATIVE (NEGATIVE); CALCIUM OXALATE CRYSTALS,URINE FEW /HPF; GLUCOSE, URINE NEGATIVE (NEGATIVE); KETONES,URINE 20 mg/dL (NEGATIVE); LEUKOCYTE ESTERASE,URINE TRACE (NEGATIVE); NITRITE,URINE NEGATIVE (NEGATIVE); PROTEIN,URINE 30 mg/dL (NEGATIVE); URINE SPECIFIC GRAVITY 1.013
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
[2017-03-31 16:59] LABS: ABSOLUTE LYMPHOCYTES (AUTO) 1.5 10^3/uL (0.5-4.7); ABSOLUTE MONOCYTES (AUTO) 0.9 10^3/uL (0.1-1.4); ABSOLUTE NEUT (AUTO) 5.8 10^3/uL (1.7-8.2); BASOPHILS % (AUTO) 0.6 % (0-2); EOSINOPHILS % (AUTO) 0.3 % (0-6); HEMATOCRIT 25.9 % (36.0-47.0); HGB HCT DIFFERENCE -3.1; LYMPHOCYTES % (AUTO) 18.4 % (13-45); MEAN CORPUSCULAR HEMOGLOBIN 17.5 pg (27.0-33.4); MEAN CORPUSCULAR HGB CONC 29.2 g/dL (32.0-36.0); MONOCYTES % (AUTO) 10.7 % (3-13); RED BLOOD COUNT 4.33 10^6/uL (3.72-5.28); RED CELL DISTRIBUTION WIDTH 20.5 % (11.5-14.0); WHITE BLOOD COUNT 8.3 10^3/uL (4.0-10.5)
[2017-03-31 17:06] LABS: ALANINE AMINOTRANSFERASE 23 U/L (9-52); ALBUMIN 3.5 g/dL (3.5-5.0); ALKALINE PHOSPHATASE 133 U/L (38-126); ANION GAP 13 (5-19); ASPARTATE AMINO TRANSFERASE 15 U/L (14-36); BILIRUBIN,DIRECT 0.4 mg/dL (0.0-0.4); BILIRUBIN,TOTAL 0.6 mg/dL (0.2-1.3); BLOOD UREA NITROGEN 6 mg/dL (7-20); CALCIUM 9.2 mg/dL (8.4-10.2); CARBON DIOXIDE 24 mmol/L (22-30); CHLORIDE 104 mmol/L (98-107); CREATININE RESULT 0.56 mg/dL (0.52-1.25); GLUCOSE 92 mg/dL (75-110); POTASSIUM 4.7 mmol/L (3.6-5.0); SODIUM 141.1 mmol/L (137-145); TOTAL PROTEIN 6.8 g/dL (6.3-8.2)
[2017-03-31 17:29] LABS: HYPOCHROMASIA 3+; MICROCYTOSIS 3+; POLYCHROMASIA SLIGHT
[2017-03-31 17:30] LABS: ANISOCYTOSIS 2+; MEAN CORPUSCULAR VOLUME 60 fl (80-97); OVALOCYTES 1+; POIKILOCYTOSIS 2+; ROULEAUX SLIGHT; TARGET CELLS SLIGHT; TEAR DROP CELLS SLIGHT
[2017-03-31 17:33] LABS: HEMOGLOBIN 7.6 g/dL (12.0-15.5)
[2017-03-31] MEDS ORDERED: NORMAL SALINE 250 ML IV PRN (18:46)
--- NOTE | 2017-03-31 19:18 | CONSULTATION REPORT E ---
Consultation Report NAME: JAMEL PHILLIPS : 1950 AGE: 67Y DATE: 03/31/2017 TO: EVERETT YORK M.D. FROM: Sofia BLACKMON, Requesting Physician REASON FOR CONSULTATION: Right labial wound. SUMMARY OF CONSULTATION: The patient seen at the request of the emergency department for evaluation of right labial wound. The patient is well-known to ri and the [facility] as well as the [facility] center for chronic decubiti of the pelvis and perineum. Most recently over the last several months the patient has been cared for by Dr. Jermain Ceja in the advanced wound [facility] regarding the perineal wound. This has been managed with topical enzymatic debriding agents. The patient is seen in the emergency department because of failure to thrive, was found to have a low grade fever and anemia. A wound evaluation was recommended. Complete past medical and surgical history, review of systems, including family history, PHYSICAL EXAMINATION: GENERAL: The patient is examined in the emergency department, room 13. She has lost weight since I last saw her. Her degree of contracture is much more severe. PERINEUM: The patient rolled in the left lateral position, right side up. The perineum is examined. There is a chronic wound 4 x 8 cm, irregular with nodularity but no active drainage. There is some desiccated fascia but mostly an open chronic granulating wound with a chronic fibrinous material; There is some foul smell but no undrained pocket. IMPRESSION: Chronic stage IV labial and ischial related decubitus in paraplegic with failure to thrive symptoms. RECOMMENDATIONS: 1. Although the wound is chronic and somewhat foul smelling, there is no indication for acute debridement; furthermore I do not believe the wound is responsible for her clinical deterioration. 2. I suggest a continued Santyl application to the wound and moist dressings. 3. Reconsult surgery as needed. DICTATING PHYSICIAN: EVERETT YORK M.D. [id number] PHY#: [id number] ID: [id number] JOB#: [id number] ACCT: [id number] cc:EVERETT YORK M.D. > [facility]
[2017-04-01 04:20] VITALS: BP 119/80
[2017-04-02 11:13] LABS: PATH REVIEW PATHOLOGIST REVIEWED
== END 2017-04-01 04:20 | disposition home or self-care (01) ==
LOC: ER 14:23
DX: D64.9 Anemia, unspecified (principal); L89.894 Pressure ulcer of other site, stage 4; M62.3 Immobility syndrome (paraplegic); R53.81 Other malaise; I48.91 Unspecified atrial fibrillation; I10 Essential (primary) hypertension; Z90.49 Acquired absence of other specified parts of digestive tract; Z90.710 Acquired absence of both cervix and uterus; Z87.891 Personal history of nicotine dependence
CPT/HCPCS: 99284; 96360; 86900; 86901; 36415; 87040; 87086; 36430; 86850; 85025; 80053; 81001; 86920; P9016; J7030

== ENCOUNTER 2017-04-01 22:26 | Inpatient (IN) | payer MEDICARE, MEDICAID ==
[2017-04-01] MEDS ORDERED: ONDANSETRON HCL INJ/PF 4 MG/2 ML SDV IV ONE (22:52)
[2017-04-01] MEDS ORDERED: NORMAL SALINE 500 ML IV ONE (22:52)
[2017-04-01] MEDS ORDERED: FENTANYL CITRATE INJ/PF 100 MCG/2 ML AMPUL IV ONE (22:52)
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
[2017-04-02 00:43] LABS: ALANINE AMINOTRANSFERASE 33 U/L (9-52); ALBUMIN 3.4 g/dL (3.5-5.0); ALKALINE PHOSPHATASE 113 U/L (38-126); ANION GAP 13 (5-19); ASPARTATE AMINO TRANSFERASE 22 U/L (14-36); BILIRUBIN,DIRECT 0.6 mg/dL (0.0-0.4); BILIRUBIN,TOTAL 0.7 mg/dL (0.2-1.3); BLOOD UREA NITROGEN 9 mg/dL (7-20); CALCIUM 9.5 mg/dL (8.4-10.2); CARBON DIOXIDE 22 mmol/L (22-30); CHLORIDE 105 mmol/L (98-107); CREATININE RESULT 0.53 mg/dL (0.52-1.25); GLUCOSE 122 mg/dL (75-110); LIPASE 57.6 U/L (23-300); POTASSIUM 4.4 mmol/L (3.6-5.0); SODIUM 140.2 mmol/L (137-145); TOTAL PROTEIN 6.8 g/dL (6.3-8.2)
[2017-04-02 00:44] LABS: ABSOLUTE LYMPHOCYTES (AUTO) 1.2 10^3/uL (0.5-4.7); ABSOLUTE MONOCYTES (AUTO) 0.8 10^3/uL (0.1-1.4); ABSOLUTE NEUT (AUTO) 12.6 10^3/uL (1.7-8.2); BASOPHILS % (AUTO) 0.2 % (0-2); EOSINOPHILS % (AUTO) 0.2 % (0-6); HEMATOCRIT 28.3 % (36.0-47.0); HEMOGLOBIN 8.6 g/dL (12.0-15.5); HGB HCT DIFFERENCE -2.5; LYMPHOCYTES % (AUTO) 8.3 % (13-45); MEAN CORPUSCULAR HEMOGLOBIN 19.5 pg (27.0-33.4); MEAN CORPUSCULAR HGB CONC 30.3 g/dL (32.0-36.0); MONOCYTES % (AUTO) 5.4 % (3-13); RED CELL DISTRIBUTION WIDTH 23.5 % (11.5-14.0); SEGMENTED NEUTROPHILS % (AUTO) 85.9 % (42-78); WHITE BLOOD COUNT 14.7 10^3/uL (4.0-10.5)
[2017-04-02 00:48] LABS: MEAN CORPUSCULAR VOLUME 64 fl (80-97)
[2017-04-02 01:03] LABS: HYPOCHROMASIA 3+; MICROCYTOSIS 3+; POLYCHROMASIA SLIGHT
[2017-04-02 01:04] LABS: ANISOCYTOSIS 3+; POIKILOCYTOSIS 2+
[2017-04-02 01:05] LABS: OVALOCYTES 2+
[2017-04-02 01:06] LABS: STOMATOCYTES SLIGHT; TARGET CELLS SLIGHT
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
[2017-04-02 01:22] LABS: AMORPHOUS SEDIMENT,URINE TRACE /HPF; APPEARANCE,URINE CLOUDY; BILIRUBIN,URINE MODERATE (NEGATIVE); GLUCOSE, URINE 50 mg/dL (NEGATIVE); KETONES,URINE 80 mg/dL (NEGATIVE); LEUKOCYTE ESTERASE,URINE TRACE (NEGATIVE); NITRITE,URINE NEGATIVE (NEGATIVE); PROTEIN,URINE >=500 mg/dL (NEGATIVE); URINE SPECIFIC GRAVITY 1.038
--- NOTE | 2017-04-02 03:28 | EKG REPORT ---
SEVERITY:- ABNORMAL ECG - SINUS RHYTHM NONSPECIFIC T ABNORMALITIES, DIFFUSE LEADS : Confirmed by: Trevor Phillip 02-Apr-2017 03:28:21
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
[2017-04-02] MEDS ORDERED: PROMETHAZINE HCL INJ 25 MG/1 ML VIAL IM ONE (05:29)
[2017-04-02] MEDS ORDERED: MIDAZOLAM 2 MG/2 ML INJ IV ONE (05:33)
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
[2017-04-02] MEDS ORDERED: GLUCAGON,HUMAN RECOMB 1 MG INJ SUBCUT PRN (11:34)
[2017-04-02] MEDS ORDERED: DEXTROSE 50%-WATER 25 GM/50 ML DISP.SYRIN IV PRN ×2 (11:34)
[2017-04-02] MEDS ORDERED: DEXTROSE 40% GEL 15 GM TUBE PO PRN ×2 (11:34)
[2017-04-02] MEDS ORDERED: NORMAL SALINE 1000 ML 1,000 ML IV PRN (11:51)
[2017-04-02] MEDS: NORMAL SALINE 1000 ML 1,000 ML IV PRN (19:06)
[2017-04-02] MEDS: MORPHINE SULFATE 10 MG/ML INJ IV PRN (21:21)
[2017-04-03 05:39] LABS: ANION GAP 14 (5-19); BLOOD UREA NITROGEN 5 mg/dL (7-20); CALCIUM 8.7 mg/dL (8.4-10.2); CARBON DIOXIDE 20 mmol/L (22-30); CHLORIDE 113 mmol/L (98-107); CREATININE RESULT 0.51 mg/dL (0.52-1.25); GLUCOSE 68 mg/dL (75-110); SODIUM 146.6 mmol/L (137-145)
[2017-04-03 05:49] LABS: ABSOLUTE EOSINOPHILS # (AUTO) 0.1 10^3/uL (0.0-0.6); ABSOLUTE LYMPHOCYTES (AUTO) 2.4 10^3/uL (0.5-4.7); ABSOLUTE MONOCYTES (AUTO) 0.6 10^3/uL (0.1-1.4); ABSOLUTE NEUT (AUTO) 5.1 10^3/uL (1.7-8.2); BASOPHILS % (AUTO) 0.6 % (0-2); HEMATOCRIT 30.2 % (36.0-47.0); HGB HCT DIFFERENCE -3.2; LYMPHOCYTES % (AUTO) 28.7 % (13-45); MEAN CORPUSCULAR HEMOGLOBIN 19.4 pg (27.0-33.4); MEAN CORPUSCULAR HGB CONC 29.7 g/dL (32.0-36.0); MEAN CORPUSCULAR VOLUME 66 fl (80-97); MONOCYTES % (AUTO) 7.8 % (3-13); RED CELL DISTRIBUTION WIDTH 22.2 % (11.5-14.0); SEGMENTED NEUTROPHILS % (AUTO) 61.9 % (42-78); WHITE BLOOD COUNT 8.3 10^3/uL (4.0-10.5)
--- NOTE | 2017-04-03 09:49 | PDOC PROGRESS REPORT ---
Subjective Progress Note for:: 04/03/17 Subjective:: Feels better. Passing gas. Hungry. Denies any abdominal distention. Reason For Visit: SMALL BOWEL OBSTRUCTION Physical Exam Vital Signs: Temp Pulse Resp BP Pulse Ox 98.5 F 93 18 117/63 92 04/03/17 07:30 04/03/17 07:30 04/03/17 07:30 04/03/17 07:30 04/03/17 07:30 Intake & Output 04/02/17 04/03/17 04/04/17 06:59 06:59 06:59 Intake Total 219 219 Output Total 1250 Balance -1031 219 Weight 188.1 kg General appearance: PRESENT: no acute distress, cooperative Respiratory exam: PRESENT: clear to auscultation fabio Cardiovascular exam: PRESENT: RRR GI/Abdominal exam: PRESENT: other - Soft, nondistended, very mild lower abdominal tenderness without peritoneal signs. Musculoskeletal exam: PRESENT: other - Buttocks chronic ulcer with sinus tract. No necrotic tissue. No surrounding erythema. The patient has drainage from the sinus tract. I do not appreciate any fluctuance. Patient notes that this process has been persistent for over 2 years. No significant change in the past year. She also states that it has been biopsied in the past. Results Laboratory Results: 04/03/17 05:01 04/03/17 05:01 04/03/17 04/03/17 05:01 05:01 WBC 8.3 RBC 4.60 Hgb 9.0 L Hct 30.2 L MCV 66 L MCH 19.4 L MCHC 29.7 L RDW 22.2 H Plt Count 444 Seg Neutrophils % 61.9 Lymphocytes % 28.7 Monocytes % 7.8 Eosinophils % 1.0 Basophils % 0.6 Absolute Neutrophils 5.1 Absolute Lymphocytes 2.4 Absolute Monocytes 0.6 Absolute Eosinophils 0.1 Absolute Basophils 0.0 Sodium 146.6 H Potassium 4.0 Chloride 113 H Carbon Dioxide 20 L Anion Gap 14 BUN 5 L Creatinine 0.51 L Est GFR ( Amer) > 60 Est GFR (Non-Af Amer) > 60 Glucose 68 L Calcium 8.7 Impressions: Acute Abdomen Series 04/01/17 22:51 IMPRESSION: 1. No acute pulmonary process. 2. Dilated loops of small bowel with air identified in the colon. This could be seen with ileus or partial small bowel obstruction. Abdomen/Pelvis CT 04/02/17 00:00 IMPRESSION: 1. Findings compatible with small bowel obstruction with transition point in the right lower abdomen best seen on image #64, series 3. This exam was performed according to our departmental dose-optimization program, which includes automated exposure control, adjustment of the mA and/or kV according to patient size and/or use of iterative reconstruction technique. Assessment & Plan - Diagnosis (1) Small bowel obstruction Is this a current diagnosis for this admission?: Yes Plan: Appears to be resolving. NG tube is out. See how she does today. will check KUB in the morning. If continued to do well will start diet. (2) Decubitus ulcer Qualifiers: Pressure ulcer stage: stage IV Qualified Code(s): L89.94 - Pressure ulcer of unspecified site, stage 4 Is this a current diagnosis for this admission?: Yes Plan: Chronic decubitus ulcer with sinus tract. It is a chronic wound. I do not see indication for debridement at this time. We will do dry dressings until we can get the wound a little transfer car operator drier. Patient will need referral back to wound care clinic when she is discharged.
[2017-04-03] MEDS: NORMAL SALINE 1000 ML 1,000 ML IV PRN ×2 (10:16→18:59)
[2017-04-03] MEDS: MORPHINE SULFATE 10 MG/ML INJ IV PRN (23:45)
[2017-04-04] MEDS: NORMAL SALINE 1000 ML 1,000 ML IV PRN ×2 (05:40→11:37)
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
--- NOTE | 2017-04-04 17:51 | PDOC PROGRESS REPORT ---
Subjective Progress Note for:: 04/04/17 Subjective:: no pains.+ Flatus Reason For Visit: SMALL BOWEL OBSTRUCTION Physical Exam Vital Signs: Temp Pulse Resp BP Pulse Ox 98.7 F 98 18 140/62 H 97 04/04/17 16:00 04/04/17 16:00 04/04/17 16:00 04/04/17 16:00 04/04/17 16:00 Intake & Output 04/03/17 04/04/17 04/05/17 06:59 06:59 06:59 Intake Total 399 901 3406 Output Total 1250 520 Balance -1031 59 1064 Weight 188.1 kg Exam: abdomen soft and nontender. Results Laboratory Results: 04/03/17 05:01 04/03/17 05:01 Impressions: Acute Abdomen Series 04/01/17 22:51 IMPRESSION: 1. No acute pulmonary process. 2. Dilated loops of small bowel with air identified in the colon. This could be seen with ileus or partial small bowel obstruction. Abdomen/Pelvis CT 04/02/17 00:00 IMPRESSION: 1. Findings compatible with small bowel obstruction with transition point in the right lower abdomen best seen on image #64, series 3. This exam was performed according to our departmental dose-optimization program, which includes automated exposure control, adjustment of the mA and/or kV according to patient size and/or use of iterative reconstruction technique. Abdomen X-Ray 04/04/17 07:00 IMPRESSION: Slightly improved bowel gas pattern. Persistent distention of bowel, predominantly colon. No air-fluid levels on today's study. Assessment & Plan - Time Time Spent with patient: 15-24 minutes - Plan Summary Plan Summary: start clears today
[2017-04-05] MEDS: MORPHINE SULFATE 10 MG/ML INJ IV PRN (00:24)
[2017-04-05] MEDS: NORMAL SALINE 1000 ML 1,000 ML IV PRN ×2 (00:31→18:48)
--- NOTE | 2017-04-05 11:19 | PDOC PROGRESS REPORT ---
Subjective Progress Note for:: 04/05/17 Reason For Visit: SMALL BOWEL OBSTRUCTION Patient is feeling better tolerating clear liquids no complaints. No further bowel movements Physical Exam Vital Signs: Temp Pulse Resp BP Pulse Ox 97.9 F 88 16 137/76 H 100 04/05/17 00:35 04/05/17 08:03 04/05/17 08:03 04/05/17 08:03 04/05/17 08:03 Intake & Output 04/04/17 04/05/17 04/06/17 06:59 06:59 06:59 Intake Total 579 3720 Output Total 520 2855 Balance 59 865 General appearance: PRESENT: no acute distress GI/Abdominal exam: PRESENT: other - Benign, soft, no peritoneal signs no rigidity. Results Laboratory Results: 04/03/17 05:01 04/03/17 05:01 Impressions: Acute Abdomen Series 04/01/17 22:51 IMPRESSION: 1. No acute pulmonary process. 2. Dilated loops of small bowel with air identified in the colon. This could be seen with ileus or partial small bowel obstruction. Abdomen/Pelvis CT 04/02/17 00:00 IMPRESSION: 1. Findings compatible with small bowel obstruction with transition point in the right lower abdomen best seen on image #64, series 3. This exam was performed according to our departmental dose-optimization program, which includes automated exposure control, adjustment of the mA and/or kV according to patient size and/or use of iterative reconstruction technique. Abdomen X-Ray 04/04/17 07:00 IMPRESSION: Slightly improved bowel gas pattern. Persistent distention of bowel, predominantly colon. No air-fluid levels on today's study. Assessment & Plan - Diagnosis (1) Small bowel obstruction Is this a current diagnosis for this admission?: Yes Plan: Impression: Clinically resolving. Plan: 1. Advance to full liquids 2. Anticipate discharge home in the next 24 hours.
[2017-04-06] MEDS ORDERED: PROMETHAZINE HCL INJ 25 MG/1 ML VIAL IV ONE (02:45)
[2017-04-06] MEDS ORDERED: BISACODYL 10 MG SUPP.RECT PR ONE (10:30)
[2017-04-06 11:08] VITALS: BP 122/57
--- NOTE | 2017-04-06 16:13 | DISCHARGE SUMMARY E ---
Discharge Summary NAME: JAMEL PHILLIPS : 1950 AGE: 67Y ADMITTED: 04/02/2017 DISCHARGED: 04/06/2017 HISTORY OF PRESENT ILLNESS: The patient is a 67-year-old -[place] female with paraplegia, indwelling Glover catheter, who was admitted to the Surgical service for abdominal pain, nausea, and vomiting. She was diagnosed provisionally with a partial small bowel obstruction. Complete past medical and surgical history can be found in her history and physical document. SUMMARY OF HOSPITALIZATION: The patient was kept NPO, on IV fluids. She clinically improved. Her abdominal films showed no evidence of john obstruction. There was air identified in the colon. She did have a nasogastric tube for 48 hours, and this was subsequently removed. She was eventually started on clear liquids. Her diet was advanced, and she tolerated this well. By the fourth hospital day, she was felt to be ready for discharge home. FINAL DIAGNOSIS: Partial small bowel obstruction possibly due to constipation in a paraplegic -[place] female. DISPOSITION: The patient will be discharged home to the care of her family. Followup with [facility] [place] for her chronic right ischial wound. She will resume her preoperative medications, diet, and activity. We will give her a prescription for a Dulcolax suppository which she will take at home. DICTATING PHYSICIAN: EVERETT YORK M.D. [id number] PHY#: [id number] ID: [id number] JOB#: [id number] ACCT: [id number] cc:EVERETT YORK M.D. [facility],
== END 2017-04-06 11:45 | disposition home health service (06) | DRG 388 ==
LOC: ER 22:26 → EH 04-02 06:39 → 4S 04-02 08:04
PROVIDERS: ATTEND Surgery
PROC: 0D9670Z Drainage of Stomach with Drainage Device, Via Natural or Artificial Opening (ICD-10-PCS; principal; 2017-04-02)
DX: K56.690 Other partial intestinal obstruction (principal); L89.314 Pressure ulcer of right buttock, stage 4; G82.20 Paraplegia, unspecified; I10 Essential (primary) hypertension; I48.91 Unspecified atrial fibrillation; K59.09 Other constipation; E66.9 Obesity, unspecified; W34.00XS Accidental discharge from unspecified firearms or gun, sequela; Z90.49 Acquired absence of other specified parts of digestive tract; Z90.710 Acquired absence of both cervix and uterus; Z88.7 Allergy status to serum and vaccine; Z68.30 Body mass index [BMI] 30.0-30.9, adult
CPT/HCPCS: 36415; 74020; 74022; 74177; 80048; 80053; 81001; 83690; 84484; 85025; 86850; 86900; 86901; 87040; 87086; 93005; 93010; 96361; 96372; 96374; 96375; 99285; J2250; J2270; J2405; J2550; J3010; J7030; J7040

== ENCOUNTER 2017-05-13 04:15 | Emergency (ER) | payer MEDICARE, MEDICAID ==
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
[2017-05-13 06:15] LABS: ABSOLUTE BASOPHILS # (AUTO) 0.1 10^3/uL (0.0-0.2); ABSOLUTE LYMPHOCYTES (AUTO) 1.5 10^3/uL (0.5-4.7); ABSOLUTE MONOCYTES (AUTO) 1.7 10^3/uL (0.1-1.4); ABSOLUTE NEUT (AUTO) 15.3 10^3/uL (1.7-8.2); BASOPHILS % (AUTO) 0.5 % (0-2); HEMATOCRIT 27.2 % (36.0-47.0); HEMOGLOBIN 8.1 g/dL (12.0-15.5); MEAN CORPUSCULAR HEMOGLOBIN 18.6 pg (27.0-33.4); MEAN CORPUSCULAR HGB CONC 29.6 g/dL (32.0-36.0); MEAN CORPUSCULAR VOLUME 63 fl (80-97); MONOCYTES % (AUTO) 9.1 % (3-13); PLATELET COUNT 577 10^3/uL (150-450); RED BLOOD COUNT 4.33 10^6/uL (3.72-5.28); RED CELL DISTRIBUTION WIDTH 25.1 % (11.5-14.0); SEGMENTED NEUTROPHILS % (AUTO) 82.4 % (42-78); TOTAL CELLS COUNTED % (AUTO) 100 %; WHITE BLOOD COUNT 18.6 10^3/uL (4.0-10.5)
[2017-05-13] MEDS ORDERED: NORMAL SALINE 1000 ML 1,000 ML IV ONE (06:31)
[2017-05-13 07:25] LABS: ALANINE AMINOTRANSFERASE 15 U/L (9-52); ALBUMIN 2.9 g/dL (3.5-5.0); ALKALINE PHOSPHATASE 128 U/L (38-126); ANION GAP 9 (5-19); ASPARTATE AMINO TRANSFERASE 11 U/L (14-36); BILIRUBIN,DIRECT 0.6 mg/dL (0.0-0.4); BILIRUBIN,TOTAL 0.7 mg/dL (0.2-1.3); BLOOD UREA NITROGEN 8 mg/dL (7-20); CALCIUM 9.2 mg/dL (8.4-10.2); CARBON DIOXIDE 24 mmol/L (22-30); CHLORIDE 103 mmol/L (98-107); GLUCOSE 100 mg/dL (75-110); POTASSIUM 4.1 mmol/L (3.6-5.0); SODIUM 136.4 mmol/L (137-145); TOTAL PROTEIN 5.9 g/dL (6.3-8.2)
[2017-05-13 07:35] LABS: ANISOCYTOSIS 4+; HYPOCHROMASIA 1+; OVALOCYTES 1+; POIKILOCYTOSIS 1+; POLYCHROMASIA SLIGHT
[2017-05-13 07:36] LABS: PLATELET COMMENT INCREASED
[2017-05-13] MEDS ORDERED: LIDOCAINE 2% URO-JET 5 ML KIT MM ONE (08:36)
[2017-05-13] MEDS ORDERED: DILTIAZEM HCL 180 MG CAPSULE.CR PO ONE (08:59)
[2017-05-13] MEDS ORDERED: DILTIAZEM HCL INJ 25 MG/5 ML VIAL IV ONE ×2 (09:05→10:22)
[2017-05-13] MEDS ORDERED: PROMETHAZINE HCL 25 MG TABLET PO ONE (09:22)
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
[2017-05-13 11:12] LABS: APPEARANCE,URINE SLIGHTLY-CLOUDY; BILIRUBIN,URINE NEGATIVE (NEGATIVE); COLOR,URINE YELLOW; GLUCOSE, URINE NEGATIVE (NEGATIVE); KETONES,URINE 80 mg/dL (NEGATIVE); LEUKOCYTE ESTERASE,URINE LARGE (NEGATIVE); NITRITE,URINE NEGATIVE (NEGATIVE); PROTEIN,URINE 30 mg/dL (NEGATIVE); URINE SPECIFIC GRAVITY 1.011
[2017-05-13 11:23] VITALS: BP 123/70
== END 2017-05-13 11:55 | disposition home or self-care (01) ==
LOC: ER 04:15
DX: T85.9XXA Unspecified complication of internal prosthetic device, implant and graft, initial encounter (principal); G82.20 Paraplegia, unspecified; I48.91 Unspecified atrial fibrillation; R53.1 Weakness; Z87.891 Personal history of nicotine dependence
CPT/HCPCS: 96376; 99285; 96361; 51702; 96374; 36415; 87086; 85025; 87088; 80053; 81001; 87186; A9270 ×3; J3490; J7030

== ENCOUNTER 2017-05-26 09:07 | Emergency (ER) | payer MEDICARE, MEDICAID ==
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
[2017-05-26] MEDS ORDERED: LORAZEPAM INJ 2 MG/1 ML VIAL IV ONE (09:31)
[2017-05-26] MEDS ORDERED: NORMAL SALINE 1000 ML 1,000 ML IV ONE (09:32)
[2017-05-26] MEDS ORDERED: ACETAMINOPHEN 325 MG TABLET PO ONE (09:32)
--- NOTE | 2017-05-26 09:51 | EKG REPORT ---
SEVERITY:- ABNORMAL ECG - ATRIAL FIBRILLATION WITH RAPID V-RATE REPOLARIZATION ABNORMALITY, PROB RATE RELATED : Confirmed by: Trevor Phillip 26-May-2017 09:50:44
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
[2017-05-26 10:48] LABS: ABSOLUTE BASOPHILS # (AUTO) 0.1 10^3/uL (0.0-0.2); ABSOLUTE MONOCYTES (AUTO) 0.7 10^3/uL (0.1-1.4); ABSOLUTE NEUT (AUTO) 10.2 10^3/uL (1.7-8.2); BASOPHILS % (AUTO) 0.4 % (0-2); HEMATOCRIT 26.1 % (36.0-47.0); LYMPHOCYTES % (AUTO) 8.6 % (13-45); MEAN CORPUSCULAR HEMOGLOBIN 18.6 pg (27.0-33.4); MEAN CORPUSCULAR HGB CONC 29.6 g/dL (32.0-36.0); MEAN CORPUSCULAR VOLUME 63 fl (80-97); PLATELET COUNT 941 10^3/uL (150-450); RED BLOOD COUNT 4.14 10^6/uL (3.72-5.28); RED CELL DISTRIBUTION WIDTH 23.7 % (11.5-14.0); TOTAL CELLS COUNTED % (AUTO) 100 %
[2017-05-26 10:52] LABS: APPEARANCE,URINE TURBID; BILIRUBIN,URINE NEGATIVE (NEGATIVE); COLOR,URINE YELLOW; GLUCOSE, URINE NEGATIVE (NEGATIVE); KETONES,URINE NEGATIVE (NEGATIVE); LEUKOCYTE ESTERASE,URINE MODERATE (NEGATIVE); NITRITE,URINE POSITIVE (NEGATIVE); PROTEIN,URINE >=500 mg/dL (NEGATIVE); URINE SPECIFIC GRAVITY 1.033; UROBILINOGEN,URINE NEGATIVE mg/dL (<2.0)
[2017-05-26 10:53] LABS: HEMOGLOBIN 7.7 g/dL (12.0-15.5)
[2017-05-26 11:03] LABS: A TYPE INFLUENZA AG NEGATIVE (NEGATIVE); B INFLUENZA AG NEGATIVE (NEGATIVE)
[2017-05-26 11:09] LABS: ANION GAP 9 (5-19); ANISOCYTOSIS 3+; BLOOD UREA NITROGEN 9 mg/dL (7-20); CALCIUM 9.4 mg/dL (8.4-10.2); CARBON DIOXIDE 25 mmol/L (22-30); CHLORIDE 101 mmol/L (98-107); GLUCOSE 100 mg/dL (75-110); HYPOCHROMASIA 1+; OVALOCYTES 1+; PLATELET CLUMPS PRESENT; PLATELET COMMENT INCREASED; POIKILOCYTOSIS 1+; POLYCHROMASIA 1+; POTASSIUM 4.7 mmol/L (3.6-5.0); ROULEAUX 1+; SODIUM 134.9 mmol/L (137-145); TOXIC GRANULATION 1+
[2017-05-26 13:05] VITALS: BP 127/63
== END 2017-05-26 13:38 | disposition home or self-care (01) ==
LOC: ER 09:07
DX: N39.0 Urinary tract infection, site not specified (principal); R31.9 Hematuria, unspecified; R05 Cough; R53.1 Weakness; I48.91 Unspecified atrial fibrillation; I10 Essential (primary) hypertension; Z88.7 Allergy status to serum and vaccine; Z90.49 Acquired absence of other specified parts of digestive tract; Z90.710 Acquired absence of both cervix and uterus
CPT/HCPCS: 93005; 99285; 96361; 96374; 36415; 87040; 83605; 85025; 87077; 80048; 81001; 87804; 71045; 93010; A9270; J2060; J7030; 87186

== ENCOUNTER 2017-05-27 14:26 | Inpatient (IN) | payer MEDICARE, MEDICAID ==
[2017-05-27] MEDS ORDERED: ACETAMINOPHEN 325 MG TABLET PO ONE (16:17)
[2017-05-27] MEDS ORDERED: NORMAL SALINE 1000 ML 1,000 ML IV ONE (16:18)
[2017-05-27] MEDS ORDERED: VANCOMYCIN HCL INJ 1000 MG VIAL IV ONE (16:38)
[2017-05-27] MEDS ORDERED: ONDANSETRON HCL INJ/PF 4 MG/2 ML SDV IV ONE (16:48)
[2017-05-27 17:16] LABS: ABSOLUTE LYMPHOCYTES (AUTO) 1.6 10^3/uL (0.5-4.7); ABSOLUTE MONOCYTES (AUTO) 0.8 10^3/uL (0.1-1.4); ABSOLUTE NEUT (AUTO) 6.5 10^3/uL (1.7-8.2); BASOPHILS % (AUTO) 0.5 % (0-2); EOSINOPHILS % (AUTO) 0.4 % (0-6); HEMATOCRIT 25.1 % (36.0-47.0); LYMPHOCYTES % (AUTO) 17.7 % (13-45); MEAN CORPUSCULAR HEMOGLOBIN 19.1 pg (27.0-33.4); MEAN CORPUSCULAR HGB CONC 30.4 g/dL (32.0-36.0); MEAN CORPUSCULAR VOLUME 63 fl (80-97); MONOCYTES % (AUTO) 9.1 % (3-13); PLATELET COUNT 801 10^3/uL (150-450); SEGMENTED NEUTROPHILS % (AUTO) 72.3 % (42-78); TOTAL CELLS COUNTED % (AUTO) 100 %
[2017-05-27 17:24] LABS: HEMOGLOBIN 7.6 g/dL (12.0-15.5)
[2017-05-27 17:35] LABS: ALANINE AMINOTRANSFERASE 16 U/L (9-52); ALBUMIN 2.7 g/dL (3.5-5.0); ALKALINE PHOSPHATASE 125 U/L (38-126); ANION GAP 8 (5-19); ASPARTATE AMINO TRANSFERASE 18 U/L (14-36); BILIRUBIN,DIRECT 0.4 mg/dL (0.0-0.4); BILIRUBIN,TOTAL 0.4 mg/dL (0.2-1.3); BLOOD UREA NITROGEN 8 mg/dL (7-20); CALCIUM 9.1 mg/dL (8.4-10.2); CARBON DIOXIDE 23 mmol/L (22-30); CHLORIDE 103 mmol/L (98-107); GLUCOSE 81 mg/dL (75-110); POTASSIUM 4.8 mmol/L (3.6-5.0); TOTAL PROTEIN 5.9 g/dL (6.3-8.2)
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
[2017-05-27 17:45] LABS: POLYCHROMASIA 1+; TOXIC GRANULATION 1+
[2017-05-27 17:46] LABS: ANISOCYTOSIS 3+; HYPOCHROMASIA 2+; OVALOCYTES 1+; POIKILOCYTOSIS 2+; SCHISTOCYTES SLIGHT; TARGET CELLS 1+
[2017-05-27 17:48] LABS: PLATELET COMMENT INCREASED; ROULEAUX SLIGHT
[2017-05-27] MEDS ORDERED: RINGERS SOLUTION,LACTATED 1,000 ML IV PRN (18:08)
[2017-05-27] MEDS ORDERED: ACETAMINOPHEN 325 MG TABLET PO PRN (18:08)
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
[2017-05-27] MEDS ORDERED: VANCOMYCIN HCL 0 MG in DEXTROSE 5%-WATER 250 ML IV NR (18:30)
[2017-05-27] MEDS ORDERED: METOPROLOL TARTRATE 25 MG TABLET PO ONE (18:34)
[2017-05-27] MEDS: HEPARIN SOD (PORCINE) 5,000 UNIT/ML 1 ML SYRINGE SUBCUT SCH (19:03)
[2017-05-27 19:11] LABS: A TYPE INFLUENZA AG NEGATIVE (NEGATIVE); B INFLUENZA AG NEGATIVE (NEGATIVE)
[2017-05-27] MEDS ORDERED: VANCOMYCIN HCL 1,250 MG in DEXTROSE 5%-WATER 250 ML IV ONE (21:00)
--- NOTE | 2017-05-27 22:38 | EKG REPORT ---
SEVERITY:- ABNORMAL ECG - ATRIAL FIBRILLATION, V-RATE 77-167 NONSPECIFIC T WAVE CHANGES : Confirmed by: Trevor Phillip 27-May-2017 22:37:37
[2017-05-28] MEDS: PIPERACILLIN SODIUM/TAZOBACTAM 3.375 GM in NORMAL SALINE 100 ML IV SCH ×4 (00:32→17:11)
[2017-05-28] MEDS: VANCOMYCIN HCL 1,250 MG in DEXTROSE 5%-WATER 250 ML IV SCH ×3 (02:41→17:12)
[2017-05-28] MEDS: HEPARIN SOD (PORCINE) 5,000 UNIT/ML 1 ML SYRINGE SUBCUT SCH ×2 (05:49→17:20)
[2017-05-28] MEDS: LANSOPRAZOLE 30 MG TAB.RAP.DR PO SCH (05:49)
[2017-05-28] MEDS ORDERED: VANCOMYCIN HCL 1,250 MG in DEXTROSE 5%-WATER 250 ML IV SCH (06:00)
[2017-05-28 06:19] LABS: ABSOLUTE RETICS # 0.063 10^6/uL (0.028-0.122); HEMATOCRIT 22.4 % (36.0-47.0); MEAN CORPUSCULAR HEMOGLOBIN 18.7 pg (27.0-33.4); MEAN CORPUSCULAR HGB CONC 29.5 g/dL (32.0-36.0); MEAN CORPUSCULAR VOLUME 64 fl (80-97); PLATELET COUNT 713 10^3/uL (150-450); RED BLOOD COUNT 3.53 10^6/uL (3.72-5.28); RETICULOCYTE COUNT (AUTO) 1.78 % (0.66-2.85); WHITE BLOOD COUNT 8.7 10^3/uL (4.0-10.5)
[2017-05-28 06:29] LABS: ALANINE AMINOTRANSFERASE 19 U/L (9-52); ALBUMIN 2.4 g/dL (3.5-5.0); ALKALINE PHOSPHATASE 99 U/L (38-126); ANION GAP 7 (5-19); ASPARTATE AMINO TRANSFERASE 11 U/L (14-36); BILIRUBIN,DIRECT 0.2 mg/dL (0.0-0.4); BILIRUBIN,TOTAL 0.2 mg/dL (0.2-1.3); BLOOD UREA NITROGEN 9 mg/dL (7-20); CARBON DIOXIDE 25 mmol/L (22-30); CHLORIDE 104 mmol/L (98-107); GLUCOSE 91 mg/dL (75-110); POTASSIUM 4.6 mmol/L (3.6-5.0); SODIUM 136.1 mmol/L (137-145); TOTAL PROTEIN 5.3 g/dL (6.3-8.2)
[2017-05-28 06:42] LABS: IRON(TIBC) < 10.1 ug/dL (37-170)
[2017-05-28 07:08] LABS: HEMOGLOBIN 6.6 g/dL (12.0-15.5)
[2017-05-28 07:13] LABS: ABSOLUTE LYMPHOCYTES# (MANUAL) 1.3 10^3/uL (0.5-4.7); ABSOLUTE MONOCYTES # (MANUAL) 0.9 10^3/uL (0.1-1.4); ABSOLUTE NEUTROPHILS# (MANUAL) 6.5 10^3/uL (1.7-8.2); ANISOCYTOSIS 3+; BAND NEUTROPHILS % (MANUAL) 1 % (3-5); BASOPHILS % (MANUAL) 0 % (0-2); EOSINOPHILS % (MANUAL) 0 % (0-6); HYPOCHROMASIA 2+; LYMPHOCYTES % (MANUAL) 15 % (13-45); MONOCYTES % (MANUAL) 10 % (3-13); OVALOCYTES 2+; PLATELET COMMENT INCREASED; POIKILOCYTOSIS 2+; POLYCHROMASIA 1+; ROULEAUX 1+; SEGMENTED NEUTROPHILS % (MAN) 74 % (42-78); TOTAL CELLS COUNTED 100; TOXIC GRANULATION SLIGHT; TOXIC VACUOLATION PRESENT
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
--- NOTE | 2017-05-28 13:42 | PDOC PROGRESS REPORT ---
Subjective Progress Note for:: 05/28/17 Subjective:: She reports that she feels much better. Received call from Microbiology reporting that patient had positive blood culture. Pt states that she is feeling much better. Reason For Visit: ACUTE ON CHRONIC DECUBITIS ULCER INFECTION Physical Exam Vital Signs: Temp Pulse Resp BP Pulse Ox 99.5 F 94 18 102/47 L 98 05/28/17 08:00 05/28/17 08:00 05/28/17 08:00 05/28/17 08:00 05/28/17 08:00 Intake & Output 05/27/17 05/28/17 05/29/17 06:59 06:59 06:59 Intake Total 1400 Output Total 0 Balance 1400 Weight 85.2 kg General appearance: PRESENT: no acute distress, well-developed, well-nourished Head exam: PRESENT: atraumatic, normocephalic Eye exam: PRESENT: conjunctiva pink, EOMI. ABSENT: scleral icterus Ear exam: PRESENT: normal external ear exam Mouth exam: PRESENT: moist, tongue midline Neck exam: ABSENT: carotid bruit, JVD, lymphadenopathy, thyromegaly Respiratory exam: PRESENT: clear to auscultation fabio. ABSENT: rales, rhonchi, wheezes Cardiovascular exam: PRESENT: RRR. ABSENT: diastolic murmur, rubs, systolic murmur Pulses: PRESENT: normal dorsalis pedis pul Vascular exam: PRESENT: normal capillary refill GI/Abdominal exam: PRESENT: normal bowel sounds, soft. ABSENT: distended, guarding, mass, organolmegaly, rebound, tenderness Rectal exam: PRESENT: deferred Extremities exam: PRESENT: other - Bilateral lower extremity muscle atrophy, right hip with dressing in place Musculoskeletal exam: PRESENT: other - Bilateral lower extremity muscle atrophy Neurological exam: PRESENT: alert, awake, oriented to person, oriented to place , oriented to time Psychiatric exam: PRESENT: appropriate affect, normal mood. ABSENT: homicidal ideation, suicidal ideation Skin exam: PRESENT: other - Right hip with dressing in place Results Laboratory Results: 05/28/17 05:19 05/28/17 05:19 05/28/17 05/28/17 05:19 05:19 WBC 8.7 RBC 3.53 L Hgb 6.6 L Hct 22.4 L MCV 64 L MCH 18.7 L MCHC 29.5 L RDW 23.0 H Plt Count 713 H Seg Neutrophils % Not Reportable Lymphocytes % Not Reportable Monocytes % Not Reportable Eosinophils % Not Reportable Basophils % Not Reportable Absolute Neutrophils Not Reportable Absolute Lymphocytes Not Reportable Absolute Monocytes Not Reportable Absolute Eosinophils Not Reportable Absolute Basophils Not Reportable Retic Count (auto) 1.78 Absolute Retic 0.063 Sodium 136.1 L Potassium 4.6 Chloride 104 Carbon Dioxide 25 Anion Gap 7 BUN 9 Creatinine 0.52 Est GFR ( Amer) > 60 Est GFR (Non-Af Amer) > 60 Glucose 91 Calcium 9.0 Iron < 10.1 L TIBC 237 L % Saturation UNABLE TO CALCULATE Ferritin 46.40 Total Bilirubin 0.2 AST 11 L ALT 19 Alkaline Phosphatase 99 Total Protein 5.3 L Albumin 2.4 L Vitamin B12 431.0 Folate 11.40 Assessment & Plan - Diagnosis (1) SIRS (systemic inflammatory response syndrome) Is this a current diagnosis for this admission?: Yes Plan: Secondary to bacteremia and right hip acute on chronic wound infection: We will continue vancomycin and Zosyn (2) Decubitus ulcer Qualifiers: Pressure ulcer location: contiguous region involving back, buttock, and hip Pressure ulcer stage: stage 4 Laterality: right Qualified Code(s): L89.44 - Pressure ulcer of contiguous site of back, buttock and hip, stage 4 Is this a current diagnosis for this admission?: Yes Plan: Patient with large decubitus ulcer that appears to be infected. wound culture pending. Patient had a wound culture done 05/16/2017 that demonstrated E. coli Proteus staph aureus group B strep and Prevotella species. Will place patient on Zosyn and vancomycin. Appreciate surgery evaluating patient. (3) Bacteremia Is this a current diagnosis for this admission?: Yes Plan: Gram-positive cocci in clusters: We will continue patient on vancomycin. Patient had blood cultures on 05/26/2017 that demonstrated the same organism. P (4) A-fib Qualifiers: Atrial fibrillation type: chronic Qualified Code(s): I48.2 - Chronic atrial fibrillation Is this a current diagnosis for this admission?: Yes Plan: Will restart patient's home medication once blood pressures improved. Patient was given low-dose metoprolol and heart rate has improved. Was on Eliquis however Eliquis being held for potential surgery. (5) Fever Is this a current diagnosis for this admission?: Yes Plan: Secondary to decubitus ulcer and bacteremia: We will place patient on vancomycin and Zosyn. Blood culture demonstrating gram-positive cocci in clusters (6) UTI (urinary tract infection) Is this a current diagnosis for this admission?: Yes Plan: Concern for UTI: Patient has other urine cultures with similar bacterial findings. Question whether this represents colonization. (7) Anemia Qualifiers: Anemia type: unspecified type Qualified Code(s): D64.9 - Anemia, unspecified Is this a current diagnosis for this admission?: Yes Plan: Anemia workup ordered. Will transfuse patient 1 unit of packed RBCs. Eliquis currently held due to anemia and possible surgery. Will check occult stools. (8) Hyponatremia Is this a current diagnosis for this admission?: Yes Plan: In setting of dehydration: Patient has IV fluids. (9) Hypertension Qualifiers: Hypertension type: essential hypertension Qualified Code(s): I10 - Essential (primary) hypertension Is this a current diagnosis for this admission?: Yes Plan: Blood Pressure currently stable. We will continue to monitor.. (10) Sacral decubitus ulcer, stage IV Is this a current diagnosis for this admission?: Yes Plan: Consult surgery to evaluate patient's wound. Will place patient on Zosyn and vancomycin. (11) Complication, suprapubic catheter obstruction Is this a current diagnosis for this admission?: Yes Plan: Urology consult placed and urology is evaluating problem currently (12) DVT prophylaxis Is this a current diagnosis for this admission?: Yes Plan: Heparin (13) Full code status Is this a current diagnosis for this admission?: Yes - Time Time Spent with patient: 25-34 minutes
[2017-05-28] MEDS ORDERED: NORMAL SALINE 250 ML IV PRN (13:46)
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
--- NOTE | 2017-05-28 14:43 | Physician Advisory Note ---
Physician Advisor ProgressNote .: Pursuant to the plan for [facility], I have reviewed the medical record for this patient. Physician Advisor Statement: Nice documenting of stage of decub, chronic Afib. Please consider documenting, if you agree: 1. "sepsis due to decub infection, present on admission, evidenced by " or "bacteremia due to ; sepsis was ruled out" (Stating SIRS, if due to infection, just asks crystal lapper to query whether or not sepsis was present.) Thanks! CK
[2017-05-28] MEDS: ONDANSETRON HCL INJ/PF 4 MG/2 ML SDV IV PRN ×2 (15:20→22:53)
[2017-05-28] MEDS ORDERED: BISACODYL 10 MG SUPP.RECT PR ONE (23:00)
[2017-05-29] MEDS: PIPERACILLIN SODIUM/TAZOBACTAM 3.375 GM in NORMAL SALINE 100 ML IV SCH ×4 (00:16→16:13)
[2017-05-29] MEDS: VANCOMYCIN HCL 1,250 MG in DEXTROSE 5%-WATER 250 ML IV SCH ×2 (02:01→09:47)
[2017-05-29] MEDS ORDERED: METOPROLOL TARTRATE PF/INJ 5 MG/5 ML SDV IV ONE (02:17)
[2017-05-29] MEDS ORDERED: TRAZODONE HCL 50 MG TABLET PO ONE (02:18)
[2017-05-29] MEDS: HEPARIN SOD (PORCINE) 5,000 UNIT/ML 1 ML SYRINGE SUBCUT SCH ×2 (05:40→20:42)
[2017-05-29] MEDS: LANSOPRAZOLE 30 MG TAB.RAP.DR PO SCH (05:40)
[2017-05-29 07:56] LABS: ABSOLUTE LYMPHOCYTES (AUTO) 1.5 10^3/uL (0.5-4.7); ABSOLUTE MONOCYTES (AUTO) 0.8 10^3/uL (0.1-1.4); ABSOLUTE NEUT (AUTO) 8.4 10^3/uL (1.7-8.2); ABSOLUTE RETICS # 0.066 10^6/uL (0.028-0.122); BASOPHILS % (AUTO) 0.3 % (0-2); EOSINOPHILS % (AUTO) 0.2 % (0-6); HEMATOCRIT 26.6 % (36.0-47.0); HEMOGLOBIN 8.2 g/dL (12.0-15.5); LYMPHOCYTES % (AUTO) 13.9 % (13-45); MEAN CORPUSCULAR HEMOGLOBIN 20.2 pg (27.0-33.4); MEAN CORPUSCULAR VOLUME 65 fl (80-97); MONOCYTES % (AUTO) 7.8 % (3-13); PLATELET COUNT 696 10^3/uL (150-450); RED BLOOD COUNT 4.08 10^6/uL (3.72-5.28); RED CELL DISTRIBUTION WIDTH 25.5 % (11.5-14.0); RETICULOCYTE COUNT (AUTO) 1.61 % (0.66-2.85); SEGMENTED NEUTROPHILS % (AUTO) 77.8 % (42-78); TOTAL CELLS COUNTED % (AUTO) 100 %; WHITE BLOOD COUNT 10.8 10^3/uL (4.0-10.5)
[2017-05-29 08:19] LABS: ALANINE AMINOTRANSFERASE 17 U/L (9-52); ALBUMIN 2.5 g/dL (3.5-5.0); ALKALINE PHOSPHATASE 101 U/L (38-126); ANION GAP 6 (5-19); ASPARTATE AMINO TRANSFERASE 18 U/L (14-36); BILIRUBIN,DIRECT 0.1 mg/dL (0.0-0.4); BILIRUBIN,TOTAL 0.4 mg/dL (0.2-1.3); BLOOD UREA NITROGEN 10 mg/dL (7-20); CALCIUM 8.7 mg/dL (8.4-10.2); CARBON DIOXIDE 26 mmol/L (22-30); CHLORIDE 107 mmol/L (98-107); GLUCOSE 99 mg/dL (75-110); IRON(TIBC) 26.4 ug/dL (37-170); POTASSIUM 4.1 mmol/L (3.6-5.0); SODIUM 139.3 mmol/L (137-145); TOTAL PROTEIN 5.3 g/dL (6.3-8.2)
[2017-05-29 08:36] LABS: ANISOCYTOSIS 3+; HYPOCHROMASIA 3+; OVALOCYTES 2+; PLATELET COMMENT INCREASED; POIKILOCYTOSIS 2+; SCHISTOCYTES SLIGHT; TEAR DROP CELLS SLIGHT
[2017-05-29] MEDS ORDERED: DEXTROSE 50%-WATER 25 GM/50 ML DISP.SYRIN IV PRN ×2 (09:14)
[2017-05-29] MEDS ORDERED: GLUCAGON,HUMAN RECOMB 1 MG INJ SUBCUT PRN (09:14)
[2017-05-29] MEDS ORDERED: DEXTROSE 40% GEL 15 GM TUBE PO PRN ×2 (09:14)
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
--- NOTE | 2017-05-29 14:54 | PDOC PROGRESS REPORT ---
Subjective Progress Note for:: 05/29/17 Subjective:: No complaints Reason For Visit: ACUTE ON CHRONIC DECUBITIS ULCER INFECTION Physical Exam Vital Signs: Temp Pulse Resp BP Pulse Ox 98.7 F 89 16 95/49 L 100 05/29/17 10:51 05/29/17 14:00 05/29/17 10:51 05/29/17 10:51 05/29/17 10:51 Intake & Output 05/28/17 05/29/17 05/30/17 06:59 06:59 06:59 Intake Total 1400 5518 Output Total 0 1202 Balance 1400 4316 Weight 85.2 kg 84.3 kg General appearance: PRESENT: no acute distress, cooperative Respiratory exam: PRESENT: clear to auscultation fabio Cardiovascular exam: PRESENT: RRR Skin exam: PRESENT: other - Right gluteal decubitus ulcer noted about 8 cm in size with mostly granulation tissue but there is a tract extending down towards her posterior right thigh with purulent drainage. Results Laboratory Results: 05/29/17 06:40 05/29/17 10:28 05/28/17 05/28/17 05/29/17 05:19 16:00 06:40 WBC 10.8 H RBC 4.08 Hgb 8.2 L Hct 26.6 L MCV 65 L MCH 20.2 L MCHC 31.0 L RDW 25.5 H Plt Count 696 H Seg Neutrophils % 77.8 Lymphocytes % 13.9 Monocytes % 7.8 Eosinophils % 0.2 Basophils % 0.3 Absolute Neutrophils 8.4 H Absolute Lymphocytes 1.5 Absolute Monocytes 0.8 Absolute Eosinophils 0.0 Absolute Basophils 0.0 Retic Count (auto) 1.61 Absolute Retic 0.066 Sodium Potassium Chloride Carbon Dioxide Anion Gap BUN Creatinine Est GFR ( Amer) Est GFR (Non-Af Amer) Glucose Calcium Iron TIBC % Saturation Transferrin 157 L Ferritin Total Bilirubin AST ALT Alkaline Phosphatase Total Protein Albumin Vitamin B12 Folate Blood Type B POSITIVE Antibody Screen NEGATIVE 05/29/17 05/29/17 06:40 10:28 WBC RBC Hgb Hct MCV MCH MCHC RDW Plt Count Seg Neutrophils % Lymphocytes % Monocytes % Eosinophils % Basophils % Absolute Neutrophils Absolute Lymphocytes Absolute Monocytes Absolute Eosinophils Absolute Basophils Retic Count (auto) Absolute Retic Sodium 139.3 Potassium 4.1 Chloride 107 Carbon Dioxide 26 Anion Gap 6 BUN 10 Creatinine 1.05 1.10 Est GFR ( Amer) > 60 > 60 Est GFR (Non-Af Amer) 52 L 50 L Glucose 99 Calcium 8.7 Iron 26.4 L TIBC 244 L % Saturation 11 Transferrin Ferritin 66.30 Total Bilirubin 0.4 AST 18 ALT 17 Alkaline Phosphatase 101 Total Protein 5.3 L Albumin 2.5 L Vitamin B12 436.0 Folate 11.90 Blood Type Antibody Screen Impressions: Pelvis CT 05/29/17 15:02 IMPRESSION: Large right ischial decubitus ulcer with 10 x 3 cm intramuscular abscess extending into the posterior upper thigh along the hamstring muscles. Contracted bladder around a Glover catheter balloon and bladder stones. Upon filling of the suprapubic catheter and bladder with contrast, there was spillage of contrast through the patient's urethra onto the perineum. No vesicoureteral reflux or extravasation from the bladder. Assessment & Plan - Diagnosis (1) Decubitus ulcer Qualifiers: Pressure ulcer location: contiguous region involving back, buttock, and hip Pressure ulcer stage: stage 4 Laterality: right Qualified Code(s): L89.44 - Pressure ulcer of contiguous site of back, buttock and hip, stage 4 Is this a current diagnosis for this admission?: Yes Plan: With extension to the right posterior thigh with abscess seen on CT scan. Will plan excisional debridement in the operating room today. I have discussed with the patient the risk and benefits of the procedure including risk of bleeding infection, extending her wound. I am a little concerned about her emerging renal failure however I feel that her infection is contributing to her problem and needs emergency surgical intervention. She ate this morning. When it is safe from an anesthesia plate standpoint we will proceed with her surgery later today.
[2017-05-29] MEDS ORDERED: BUPIVACAINE HCL 0.25 % INJ/PF (2.5 MG/1 ML) 30 ML VIAL ONE (15:35)
[2017-05-29] MEDS ORDERED: NORMAL SALINE 1000 ML 2,000 ML IV ONE (16:00)
[2017-05-29] MEDS ORDERED: LIDOCAINE 1%/EPINEPHRINE INJ 20 ML VIAL ONE (16:20)
[2017-05-29] MEDS ORDERED: KETAMINE HCL INJ 500 MG/10 ML VIAL ONE (16:28)
[2017-05-29] MEDS ORDERED: FENTANYL CITRATE INJ/PF 100 MCG/2 ML AMPUL IV PRN ×3 (17:21)
[2017-05-29] MEDS ORDERED: MEPERIDINE HCL/PF INJ 25 MG/1 ML DISP.SYRIN IV PRN (17:21)
[2017-05-29] MEDS ORDERED: PROMETHAZINE HCL INJ 25 MG/1 ML VIAL IV PRN ×2 (17:21)
[2017-05-29] MEDS ORDERED: ONDANSETRON HCL INJ/PF 4 MG/2 ML SDV IV PRN ×2 (17:21→18:28)
[2017-05-29] MEDS ORDERED: DIPHENHYDRAMINE HCL 50 MG/ML VIAL IV PRN (17:21)
--- NOTE | 2017-05-29 18:28 | Operative Report ---
Operative Report DATE OF SURGERY: 05/29/17 PREOPERATIVE DIAGNOSIS: Necrotic Right ischiosacral and posterior upper thigh abscess POSTOPERATIVE DIAGNOSIS: Necrotic ischiosacral and right posterior upper thigh abscess with massive tissue necrosis OPERATION: Extensive excisional debridement of right ischio- sacral and posterior upper thigh abscess and tissue necrosis. Area debrided is about 4 x 15 cm in size. Suspicious skin edge incisional biopsy. SURGEON: GARY CARBAJAL ANESTHESIA: LMAC TISSUE REMOVED OR ALTERED: Necrotic tissue sent for Gram stain and culture. Pus sent for Gram stain and culture. Skin edge discolorations incisional biopsy submitted for histology. COMPLICATIONS: None ESTIMATED BLOOD LOSS: 200 cc INTRAOPERATIVE FINDINGS: Extensive amount of tissue necrosis extending from the base of ischiosacral wound to the right posterior upper thigh with pus and necrotic muscle and soft tissue. Region of tissue necrosis measuring about 15 x 4 cm in size. PROCEDURE: Informed consent was obtained. Patient was brought to the operating room placed on the operating table with her left side down. Procedure was done under LMAC. She was insensate in the sacral and lower extremity. Her sacral ischial decubitus wound measured about 8 x 8 cm in size. upon prying back the edge of the skin superiorly there was necrotic tissue underneath and this necrotic tissue area extended inferiorly toward the right posterior upper thigh. This track was probed with the suction device. Entering a long abscess cavity. A counterincision was made in the posterior upper thigh. However as the operation went along became obvious that she had a lot of necrotic tissue along this abscess track that could not be debrided without filleting open this tract. Therefore the wound was widened to about 15 x 8 cm in size. Thus filleting open the abscess tract enough for excisional debridement. There was copious amount of necrotic muscle and soft tissue along this tract that was sharply debrided with scissors. All of the necrotic tissue was excised using scissors debridement and curette. Basis was achieved with electrocautery. The wound was irrigated out. At the medial edge of her chronic wound there was white discoloration of the skin with some thickening. This region was biopsied using an incisional biopsy technique taking a sliver of this abnormal skin and the underlying tissue and submitted to pathology. Hemostasis was achieved with electrocautery. Wound was then packed with Kerlix. Patient tolerated procedure well with no apparent complications and was taken to the recovery area in stable condition.
[2017-05-29] MEDS ORDERED: NORMAL SALINE 1000 ML 1,000 ML IV PRN (18:29)
[2017-05-29] MEDS ORDERED: NORMAL SALINE 1000 ML 1,000 ML IV ONE (19:00)
--- NOTE | 2017-05-29 19:18 | PDOC PROGRESS REPORT ---
Subjective Progress Note for:: 05/29/17 Subjective:: Patient was seen this morning. Nursing states that patient has done well however later during the day nursing reports that blood pressure was on the low side. Received call from surgery stating that they were planning to take patient to the OR later today. Also spoke with urology who was concerned about patient having a large thigh abscess. Spoke with surgery who states that they are already aware and is planning to take patient to the OR to address that problem as well. Reason For Visit: ACUTE ON CHRONIC DECUBITIS ULCER INFECTION Physical Exam Vital Signs: Temp Pulse Resp BP Pulse Ox 98.7 F 89 16 88/58 L 100 05/29/17 15:28 05/29/17 15:28 05/29/17 15:28 05/29/17 15:28 05/29/17 15:28 Intake & Output 05/28/17 05/29/17 05/30/17 06:59 06:59 06:59 Intake Total 1400 5518 1240 Output Total 0 1202 1500 Balance 1400 4316 -260 Weight 85.2 kg 84.3 kg General appearance: PRESENT: no acute distress, well-developed, well-nourished Head exam: PRESENT: atraumatic, normocephalic Eye exam: PRESENT: conjunctiva pink, EOMI Ear exam: PRESENT: normal external ear exam Mouth exam: PRESENT: moist, tongue midline Neck exam: ABSENT: carotid bruit, JVD, lymphadenopathy, thyromegaly Respiratory exam: PRESENT: clear to auscultation fabio. ABSENT: rales, rhonchi, wheezes Cardiovascular exam: PRESENT: RRR. ABSENT: diastolic murmur, rubs, systolic murmur Pulses: PRESENT: normal dorsalis pedis pul Vascular exam: PRESENT: normal capillary refill GI/Abdominal exam: PRESENT: normal bowel sounds, soft. ABSENT: distended, guarding, mass, organolmegaly, rebound, tenderness Rectal exam: PRESENT: deferred Extremities exam: PRESENT: other - Right leg muscle wasting dressing in place on right hip area Musculoskeletal exam: PRESENT: other - Lateral lower extremity muscle wasting Neurological exam: PRESENT: alert, awake, oriented to person, oriented to place , oriented to time, oriented to situation, CN II-XII grossly intact. ABSENT: motor sensory deficit Psychiatric exam: PRESENT: appropriate affect, normal mood. ABSENT: homicidal ideation, suicidal ideation Skin exam: PRESENT: dry, intact, warm, other - Dressing over right side wound on hip. ABSENT: cyanosis, rash Results Laboratory Results: 05/29/17 06:40 05/29/17 10:28 05/28/17 05/28/17 05/29/17 05:19 16:00 06:40 WBC 10.8 H RBC 4.08 Hgb 8.2 L Hct 26.6 L MCV 65 L MCH 20.2 L MCHC 31.0 L RDW 25.5 H Plt Count 696 H Seg Neutrophils % 77.8 Lymphocytes % 13.9 Monocytes % 7.8 Eosinophils % 0.2 Basophils % 0.3 Absolute Neutrophils 8.4 H Absolute Lymphocytes 1.5 Absolute Monocytes 0.8 Absolute Eosinophils 0.0 Absolute Basophils 0.0 Retic Count (auto) 1.61 Absolute Retic 0.066 Sodium Potassium Chloride Carbon Dioxide Anion Gap BUN Creatinine Est GFR ( Amer) Est GFR (Non-Af Amer) Glucose Calcium Iron TIBC % Saturation Transferrin 157 L Ferritin Total Bilirubin AST ALT Alkaline Phosphatase Total Protein Albumin Vitamin B12 Folate Blood Type B POSITIVE Antibody Screen NEGATIVE 05/29/17 05/29/17 06:40 10:28 WBC RBC Hgb Hct MCV MCH MCHC RDW Plt Count Seg Neutrophils % Lymphocytes % Monocytes % Eosinophils % Basophils % Absolute Neutrophils Absolute Lymphocytes Absolute Monocytes Absolute Eosinophils Absolute Basophils Retic Count (auto) Absolute Retic Sodium 139.3 Potassium 4.1 Chloride 107 Carbon Dioxide 26 Anion Gap 6 BUN 10 Creatinine 1.05 1.10 Est GFR ( Amer) > 60 > 60 Est GFR (Non-Af Amer) 52 L 50 L Glucose 99 Calcium 8.7 Iron 26.4 L TIBC 244 L % Saturation 11 Transferrin Ferritin 66.30 Total Bilirubin 0.4 AST 18 ALT 17 Alkaline Phosphatase 101 Total Protein 5.3 L Albumin 2.5 L Vitamin B12 436.0 Folate 11.90 Blood Type Antibody Screen Impressions: Pelvis CT 05/29/17 15:02 IMPRESSION: Large right ischial decubitus ulcer with 10 x 3 cm intramuscular abscess extending into the posterior upper thigh along the hamstring muscles. Contracted bladder around a Glover catheter balloon and bladder stones. Upon filling of the suprapubic catheter and bladder with contrast, there was spillage of contrast through the patient's urethra onto the perineum. No vesicoureteral reflux or extravasation from the bladder. Assessment & Plan - Diagnosis (1) Sepsis Qualifiers: Sepsis type: sepsis due to unspecified organism Qualified Code(s): A41.9 - Sepsis, unspecified organism Is this a current diagnosis for this admission?: Yes Plan: [employer]ITORING secondary to large right thigh abscess and Large right side open wound status post surgical incision of abscess: Continue patient on current antibiotics. Will give patient another normal saline bolus and transfer patient to the MICU. (2) Decubitus ulcer Qualifiers: Pressure ulcer location: contiguous region involving back, buttock, and hip Pressure ulcer stage: stage 4 Laterality: right Qualified Code(s): L89.44 - Pressure ulcer of contiguous site of back, buttock and hip, stage 4 Is this a current diagnosis for this admission?: Yes Plan: Patient with large decubitus ulcer that appears to be infected. wound culture pending. Patient had a wound culture done 05/16/2017 that demonstrated E. coli Proteus staph aureus group B strep and Prevotella species. Will continue Zosyn and vancomycin. Appreciate surgery evaluating patient. (3) Bacteremia Is this a current diagnosis for this admission?: Yes (4) A-fib Qualifiers: Atrial fibrillation type: chronic Qualified Code(s): I48.2 - Chronic atrial fibrillation Is this a current diagnosis for this admission?: Yes (5) Fever Is this a current diagnosis for this admission?: Yes (6) UTI (urinary tract infection) Qualifiers: Urinary tract infection type: acute cystitis Hematuria presence: without hematuria Qualified Code(s): N30.00 - Acute cystitis without hematuria Is this a current diagnosis for this admission?: Yes (7) Anemia Qualifiers: Anemia type: unspecified type Qualified Code(s): D64.9 - Anemia, unspecified Is this a current diagnosis for this admission?: Yes (8) Hyponatremia Is this a current diagnosis for this admission?: Yes (9) Hypertension Qualifiers: Hypertension type: essential hypertension Qualified Code(s): I10 - Essential (primary) hypertension Is this a current diagnosis for this admission?: Yes (10) Sacral decubitus ulcer, stage IV Is this a current diagnosis for this admission?: Yes (11) Complication, suprapubic catheter obstruction Qualifiers: Encounter type: subsequent encounter Qualified Code(s): T83.090D - Other mechanical complication of cystostomy catheter, subsequent encounter Is this a current diagnosis for this admission?: Yes (12) Functional quadriplegia Is this a current diagnosis for this admission?: Yes Plan: Supportive care. (13) Vesicocutaneous fistula Is this a current diagnosis for this admission?: Yes Plan: Ruled Out (14) Large right ischial Decubits ulcer Is this a current diagnosis for this admission?: Yes Plan: S/P I and D: Will continue IV antibiotics. (15) Right Intramuscular Abscess Is this a current diagnosis for this admission?: Yes Plan: With massive tissue necrosis status post I/D: Will continue current antibiotics. (16) DVT prophylaxis Is this a current diagnosis for this admission?: Yes Plan: Heparin (17) Full code status Is this a current diagnosis for this admission?: Yes - Time Time Spent with patient: 25-34 minutes - Transferred to MICU
[2017-05-29] MEDS: VANCOMYCIN HCL 1,500 MG in DEXTROSE 5%-WATER 250 ML IV SCH (20:42)
[2017-05-30] MEDS: PIPERACILLIN SODIUM/TAZOBACTAM 3.375 GM in NORMAL SALINE 100 ML IV SCH ×5 (00:08→23:40)
[2017-05-30] MEDS ORDERED: VANCOMYCIN HCL 1,500 MG in DEXTROSE 5%-WATER 250 ML IV ONE (00:15)
[2017-05-30] MEDS: LANSOPRAZOLE 30 MG TAB.RAP.DR PO SCH (05:23)
[2017-05-30 05:26] LABS: ANION GAP 8 (5-19); BLOOD UREA NITROGEN 11 mg/dL (7-20); CALCIUM 9.1 mg/dL (8.4-10.2); CARBON DIOXIDE 23 mmol/L (22-30); CHLORIDE 111 mmol/L (98-107); GLUCOSE 117 mg/dL (75-110); POTASSIUM 4.8 mmol/L (3.6-5.0); SODIUM 141.9 mmol/L (137-145)
[2017-05-30] MEDS: VANCOMYCIN HCL 1,500 MG in DEXTROSE 5%-WATER 250 ML IV SCH ×2 (05:27→12:24)
[2017-05-30 05:39] LABS: HEMATOCRIT 31.1 % (36.0-47.0); HEMOGLOBIN 9.6 g/dL (12.0-15.5); MEAN CORPUSCULAR HEMOGLOBIN 20.8 pg (27.0-33.4); MEAN CORPUSCULAR HGB CONC 30.9 g/dL (32.0-36.0); MEAN CORPUSCULAR VOLUME 67 fl (80-97); PLATELET COUNT 608 10^3/uL (150-450); RED BLOOD COUNT 4.62 10^6/uL (3.72-5.28); WHITE BLOOD COUNT 11.6 10^3/uL (4.0-10.5)
[2017-05-30] MEDS ORDERED: RINGERS SOLUTION,LACTATED 1,000 ML IV ONE (05:47)
[2017-05-30] MEDS: HEPARIN SOD (PORCINE) 5,000 UNIT/ML 1 ML SYRINGE SUBCUT SCH ×2 (06:48→17:43)
[2017-05-30] MEDS ORDERED: DEXAMETHASONE SOD PHOSPHATE INJ 4 MG/1 ML VIAL ONE (07:55)
[2017-05-30] MEDS ORDERED: PHENYLEPHRINE HCL INJ/PF 10 MG/1 ML SDV ONE (07:55)
[2017-05-30] MEDS ORDERED: LIDOCAINE 2% INJ-PF (20 MG/ML) 2 ML AMPUL ONE (07:55)
[2017-05-30] MEDS ORDERED: ONDANSETRON HCL INJ/PF 4 MG/2 ML SDV ONE (07:55)
[2017-05-30] MEDS ORDERED: GLYCOPYRROLATE INJ 0.4 MG/2 ML VIAL ONE (07:55)
--- NOTE | 2017-05-30 08:51 | PDOC PROGRESS REPORT ---
Subjective Progress Note for:: 05/30/17 Subjective:: POD #1 s/p excisional debridement of right gluteal decubitus ulcer. She was transfused three units of PRBCs the day before surgery. Has no subjective fresh complaints. No bleeding from the wound. Reason For Visit: ACUTE ON CHRONIC DECUBITIS ULCER INFECTION Physical Exam Vital Signs: Temp Pulse Resp BP Pulse Ox 97.9 F 76 16 118/63 100 05/30/17 06:24 05/30/17 06:24 05/30/17 00:35 05/30/17 06:24 05/30/17 06:24 Intake & Output 05/29/17 05/30/17 05/31/17 06:59 06:59 06:59 Intake Total 5518 3515 Output Total 1202 2450 Balance 4316 1065 Weight 84.3 kg 86.4 kg General appearance: PRESENT: no acute distress, cooperative, obese Head exam: PRESENT: atraumatic, normocephalic Eye exam: PRESENT: conjunctiva pink, EOMI, PERRLA. ABSENT: scleral icterus Ear exam: PRESENT: normal external ear exam Respiratory exam: PRESENT: clear to auscultation fabio. ABSENT: rales, rhonchi, wheezes Cardiovascular exam: PRESENT: RRR. ABSENT: diastolic murmur, rubs, systolic murmur GI/Abdominal exam: PRESENT: other - suprapubic catheter in situ Rectal exam: PRESENT: other - Right Gluteal ulcer looks clean with granulation tissue on the exposed surface. There is an undermined area laterally with small amount of residual slough covering about 5% of the surface including an area at the deep recess of the undermined portion. There is a 3cm incision 4cm distal to the ulcer with packing Gentrourinary exam: PRESENT: other - suprapubic catheter in place Neurological exam: PRESENT: alert, awake, oriented to person, oriented to place , oriented to time, oriented to situation, CN II-XII grossly intact, other - paraplegic Skin exam: PRESENT: other - Right Gluteal ulcer looks clean with granulation tissue on the exposed surface. There is an undermined area laterally with small amount of residual slough covering about 5% of the surface including an area at the deep recess of the undermined portion. There is a 3cm incision 4cm distal to the ulcer with packing Results Laboratory Results: 05/30/17 04:27 02/09/18 04:27 05/28/17 05/29/17 05/29/17 16:00 06:40 10:28 WBC RBC Hgb Hct MCV MCH MCHC RDW Plt Count Sodium 139.3 Potassium 4.1 Chloride 107 Carbon Dioxide 26 Anion Gap 6 BUN 10 Creatinine 1.05 1.10 Est GFR ( Amer) > 60 > 60 Est GFR (Non-Af Amer) 52 L 50 L Glucose 99 Calcium 8.7 Iron 26.4 L TIBC 244 L % Saturation 11 Ferritin 66.30 Total Bilirubin 0.4 AST 18 ALT 17 Alkaline Phosphatase 101 Total Protein 5.3 L Albumin 2.5 L Vitamin B12 436.0 Folate 11.90 Blood Type B POSITIVE Antibody Screen NEGATIVE 05/30/17 05/30/17 04:27 04:27 WBC 11.6 H RBC 4.62 Hgb 9.6 L Hct 31.1 L MCV 67 L MCH 20.8 L MCHC 30.9 L RDW 26.0 H Plt Count 608 H Sodium 141.9 Potassium 4.8 Chloride 111 H Carbon Dioxide 23 Anion Gap 8 BUN 11 Creatinine 1.13 Est GFR ( Amer) 58 L Est GFR (Non-Af Amer) 48 L Glucose 117 H Calcium 9.1 Iron TIBC % Saturation Ferritin Total Bilirubin AST ALT Alkaline Phosphatase Total Protein Albumin Vitamin B12 Folate Blood Type Antibody Screen Impressions: Pelvis CT 05/29/17 15:02 IMPRESSION: Large right ischial decubitus ulcer with 10 x 3 cm intramuscular abscess extending into the posterior upper thigh along the hamstring muscles. Contracted bladder around a Glover catheter balloon and bladder stones. Upon filling of the suprapubic catheter and bladder with contrast, there was spillage of contrast through the patient's urethra onto the perineum. No vesicoureteral reflux or extravasation from the bladder. Assessment & Plan - Diagnosis (1) Decubitus ulcer, stage 2 with infection Is this a current diagnosis for this admission?: Yes (2) Paraplegia Is this a current diagnosis for this admission?: Yes (3) Anemia Qualifiers: Anemia type: unspecified type Qualified Code(s): D64.9 - Anemia, unspecified Is this a current diagnosis for this admission?: Yes - Time Time Spent with patient: 25-34 minutes Total Critical Time (Minutes): 25 - Plan Summary Plan Summary: The wound was inspected and a wet to dry dressing with saline-moistened 4 inch kerlex, 4x4, ABD and tape reapplied. She may eventually require additional debridement of the slough in the deep recess with subsequent wound vac application but will continue with daily wet-to -dry dressings for now.
--- NOTE | 2017-05-30 09:39 | RADIOLOGY REPORT (SQ) ---
EXAM DESCRIPTION: PICC INSERTION; U/S GUIDE FOR VASCULAR ACCESS; FLUORO/CV PLACEMENT COMPLETED DATE/TIME: 05/30/2017 9:31 am REASON FOR STUDY: poor peripheral access; IV ACCESS COMPARISON: AP chest 05/26/2017 FLUOROSCOPY TIME: 12 seconds 1 digital radiograph and 1 ultrasound images saved to PACS. TECHNIQUE: Fluoroscopic and ultrasound guided PICC placement. LIMITATIONS: None. PROCEDURE: After written consent and assessment were obtained, the patient was brought into the fluo roscopy room and place supine on the table. Ultrasound was used on the patient's right arm for PICC access. The right arm was prepped and draped in a sterile fashion along with the ultrasound probe. Th e entry site was anesthetized with 1% lidocaine. A 21 gauge 7 cm needle was advanced through the skin and into the basilic vein under live ultrasound guidance. An ultrasound image was saved to PACS con firming access site. A .018 guide wire was then inserted through the needle and into the venous syst em. The needle was the removed and an 11 blade scalpel was used to make a 1cm skin incision. A 5 fr peel-away sheath was advanced over the wire and into the venous system. A measurement was then made u sing the existing wire and live fluoroscopic guidance. The wire was then removed and the trimmed. The PICC was advanced through the peel-away sheath and into the venous system. The peel-away sheath was removed and the catheter was adhered to the patients arm with a stat lock. The catheter was then aspi rated and flushed and a sterile bandage was placed over the access site. A fluoroscopic spot image w as saved to PACS confirming the catheter tip within the superior vena cava. IMPRESSION: SUCCESSFUL PLACEMENT OF A 5 FR DUAL LUMEN 35 CM PICC IN THE RIGHT BASILIC VEIN. COMMENT: Patient medication list reviewed: Yes- Quality ID# [id number]:Eligible professional attests to doc umenting in the medical record they obtained, updated, or reviewed the patient's current medications. . Quality ID 145: Final reports for procedures using fluoroscopy that document radiation exposure donaldo roberto, or exposure time and number of fluorographic images (if radiation exposure indices are not avail able) Quality ID #[id number]: The patient was prepped and draped using maximum sterile barrier technique including cap, mask, sterile gown, sterile gloves, a large sterile sheet, hand hygiene, and 2% Chlorhexidine fo r cutaneous antisepsis. When ultrasound is used, sterile ultrasound techniques are followed requiring sterile gel and sterile probes. TECHNICAL DOCUMENTATION: JOB ID: [id number] [employer] [facility]- All Rights Reserved
[2017-05-30] MEDS: NORMAL SALINE 1000 ML 1,000 ML IV PRN ×2 (14:30→21:19)
--- NOTE | 2017-05-30 19:53 | PDOC PROGRESS REPORT ---
Subjective Progress Note for:: 05/30/17 Subjective:: Patient states that she is feeling better. Patient was seen twice today. On second visit patient was wanting to make sure she knew what time I was rounding so that her son would be present. Did receive call from [facility] reporting that patient's blood culture demonstrated staph Epidermidis representing contamination however patient's wound cultures are growing out gram-negative rods. Reason For Visit: ACUTE ON CHRONIC DECUBITIS ULCER INFECTION Physical Exam Vital Signs: Temp Pulse Resp BP Pulse Ox 98.3 F 81 16 100/59 L 99 05/30/17 12:09 05/30/17 14:00 05/30/17 12:09 05/30/17 12:09 05/30/17 12:09 Intake & Output 05/29/17 05/30/17 05/31/17 06:59 06:59 06:59 Intake Total 5518 3515 600 Output Total 1202 2450 300 Balance 4316 1065 300 Weight 84.3 kg 86.4 kg General appearance: PRESENT: no acute distress, well-developed, well-nourished Head exam: PRESENT: atraumatic, normocephalic Eye exam: PRESENT: conjunctiva pink, EOMI. ABSENT: scleral icterus Ear exam: PRESENT: bleeding Mouth exam: PRESENT: moist, tongue midline Neck exam: ABSENT: carotid bruit, JVD, lymphadenopathy, thyromegaly Respiratory exam: PRESENT: clear to auscultation fabio. ABSENT: rales, rhonchi, wheezes Cardiovascular exam: PRESENT: RRR. ABSENT: diastolic murmur, rubs, systolic murmur Pulses: PRESENT: normal dorsalis pedis pul Vascular exam: PRESENT: normal capillary refill GI/Abdominal exam: PRESENT: normal bowel sounds, soft. ABSENT: distended, guarding, mass, organolmegaly, rebound, tenderness Rectal exam: PRESENT: deferred Extremities exam: PRESENT: other - Lower extremity muscle wasting Neurological exam: PRESENT: alert, awake, oriented to person, oriented to place , oriented to time, oriented to situation, CN II-XII grossly intact. ABSENT: motor sensory deficit Psychiatric exam: PRESENT: appropriate affect, normal mood. ABSENT: homicidal ideation, suicidal ideation Skin exam: PRESENT: other - Dressing in place right hip Results Laboratory Results: 05/30/17 04:27 05/30/17 04:27 05/28/17 05/29/17 05/30/17 16:00 06:40 04:27 WBC 11.6 H RBC 4.62 Hgb 9.6 L Hct 31.1 L MCV 67 L MCH 20.8 L MCHC 30.9 L RDW 26.0 H Plt Count 608 H Sodium Potassium Chloride Carbon Dioxide Anion Gap BUN Creatinine Est GFR ( Amer) Est GFR (Non-Af Amer) Glucose Calcium Transferrin 167 L Blood Type B POSITIVE Antibody Screen NEGATIVE 05/30/17 04:27 WBC RBC Hgb Hct MCV MCH MCHC RDW Plt Count Sodium 141.9 Potassium 4.8 Chloride 111 H Carbon Dioxide 23 Anion Gap 8 BUN 11 Creatinine 1.13 Est GFR ( Amer) 58 L Est GFR (Non-Af Amer) 48 L Glucose 117 H Calcium 9.1 Transferrin Blood Type Antibody Screen Impressions: Pelvis CT 05/29/17 15:02 IMPRESSION: Large right ischial decubitus ulcer with 10 x 3 cm intramuscular abscess extending into the posterior upper thigh along the hamstring muscles. Contracted bladder around a Glover catheter balloon and bladder stones. Upon filling of the suprapubic catheter and bladder with contrast, there was spillage of contrast through the patient's urethra onto the perineum. No vesicoureteral reflux or extravasation from the bladder. Guidance Fluoroscopy 05/30/17 00:00 IMPRESSION: SUCCESSFUL PLACEMENT OF A 5 FR DUAL LUMEN 35 CM PICC IN THE RIGHT BASILIC VEIN. Interventional Vascular Procedure 05/30/17 00:00 IMPRESSION: SUCCESSFUL PLACEMENT OF A 5 FR DUAL LUMEN 35 CM PICC IN THE RIGHT BASILIC VEIN. PICC Line Insertion 05/30/17 08:00 IMPRESSION: SUCCESSFUL PLACEMENT OF A 5 FR DUAL LUMEN 35 CM PICC IN THE RIGHT BASILIC VEIN. Assessment & Plan - Diagnosis (1) Sepsis Qualifiers: Sepsis type: sepsis due to unspecified organism Qualified Code(s): A41.9 - Sepsis, unspecified organism Is this a current diagnosis for this admission?: Yes Plan: [employer]END[employer] secondary to large right thigh abscess and Large right side open wound status post surgical incision of abscess: We will continue antibiotics. Patient 's blood pressures have improved. (2) Decubitus ulcer Qualifiers: Pressure ulcer location: contiguous region involving back, buttock, and hip Pressure ulcer stage: stage 4 Laterality: right Qualified Code(s): L89.44 - Pressure ulcer of contiguous site of back, buttock and hip, stage 4 Is this a current diagnosis for this admission?: Yes Plan: Patient with large decubitus ulcer that appears to be infected. Wound cultures demonstrating gram-negative rods will continue current antibiotics. (3) Bacteremia Is this a current diagnosis for this admission?: Yes Plan: Staph epidermidis: Contamination. (4) A-fib Qualifiers: Atrial fibrillation type: chronic Qualified Code(s): I48.2 - Chronic atrial fibrillation Is this a current diagnosis for this admission?: Yes Plan: We will continue to monitor patient's blood pressure. Patient's blood pressure is still on the low side. Will use as needed metoprolol if patient's heart rate is uncontrolled. (5) Fever Is this a current diagnosis for this admission?: Yes Plan: Secondary to decubitus ulcer and Abscess: Will continue vancomycin and Zosyn. (6) UTI (urinary tract infection) Qualifiers: Urinary tract infection type: acute cystitis Hematuria presence: without hematuria Qualified Code(s): N30.00 - Acute cystitis without hematuria Is this a current diagnosis for this admission?: Yes Plan: Concern for UTI: Patient has other urine cultures with similar bacterial findings. Question whether this represents colonization. (7) Anemia Qualifiers: Anemia type: unspecified type Qualified Code(s): D64.9 - Anemia, unspecified Is this a current diagnosis for this admission?: Yes Plan: Iron deficiency anemia: Place patient on iron replacement. Hemoccult stools pending (8) Hyponatremia Is this a current diagnosis for this admission?: Yes Plan: In setting of dehydration: Patient has IV fluids. (9) Hypertension Qualifiers: Hypertension type: essential hypertension Qualified Code(s): I10 - Essential (primary) hypertension Is this a current diagnosis for this admission?: Yes Plan: Blood Pressure currently stable. We will continue to monitor.. (10) Sacral decubitus ulcer, stage IV Is this a current diagnosis for this admission?: Yes Plan: Consult surgery to evaluate patient's wound. Will continue Zosyn and vancomycin. (11) Complication, suprapubic catheter obstruction Qualifiers: Encounter type: subsequent encounter Qualified Code(s): T83.090D - Other mechanical complication of cystostomy catheter, subsequent encounter Is this a current diagnosis for this admission?: Yes Plan: Resolved (12) Functional quadriplegia Is this a current diagnosis for this admission?: Yes Plan: Supportive care. (13) Vesicocutaneous fistula Is this a current diagnosis for this admission?: Yes Plan: Ruled Out (14) Large right ischial Decubits ulcer Is this a current diagnosis for this admission?: Yes Plan: S/P I and D: Will continue IV antibiotics. (15) Right Intramuscular Abscess Is this a current diagnosis for this admission?: Yes Plan: With massive tissue necrosis status post I/D: Will continue current antibiotics. (16) DVT prophylaxis Is this a current diagnosis for this admission?: Yes Plan: Heparin (17) Full code status Is this a current diagnosis for this admission?: Yes - Time Time Spent with patient: 15-24 minutes
[2017-05-30] MEDS: NORMAL SALINE 10 ML SDV (SCHEDULED) IV SCH (21:17)
[2017-05-31] MEDS: VANCOMYCIN HCL 1,500 MG in DEXTROSE 5%-WATER 250 ML IV SCH ×2 (00:47→12:21)
[2017-05-31] MEDS: LANSOPRAZOLE 30 MG TAB.RAP.DR PO SCH (05:09)
[2017-05-31] MEDS: PIPERACILLIN SODIUM/TAZOBACTAM 3.375 GM in NORMAL SALINE 100 ML IV SCH ×4 (05:10→23:34)
[2017-05-31] MEDS: HEPARIN SOD (PORCINE) 5,000 UNIT/ML 1 ML SYRINGE SUBCUT SCH ×2 (05:15→18:52)
[2017-05-31 06:29] LABS: ALANINE AMINOTRANSFERASE 16 U/L (9-52); ALBUMIN 2.4 g/dL (3.5-5.0); ALKALINE PHOSPHATASE 90 U/L (38-126); ANION GAP 7 (5-19); ASPARTATE AMINO TRANSFERASE 12 U/L (14-36); BILIRUBIN,TOTAL < 0.1 mg/dL (0.2-1.3); BLOOD UREA NITROGEN 11 mg/dL (7-20); CALCIUM 8.1 mg/dL (8.4-10.2); CARBON DIOXIDE 25 mmol/L (22-30); CHLORIDE 108 mmol/L (98-107); GLUCOSE 94 mg/dL (75-110); MAGNESIUM 1.7 mg/dL (1.6-2.3); POTASSIUM 4.3 mmol/L (3.6-5.0); SODIUM 139.9 mmol/L (137-145)
[2017-05-31 06:48] LABS: ABSOLUTE LYMPHOCYTES (AUTO) 1.6 10^3/uL (0.5-4.7); ABSOLUTE MONOCYTES (AUTO) 0.8 10^3/uL (0.1-1.4); ABSOLUTE NEUT (AUTO) 7.9 10^3/uL (1.7-8.2); BASOPHILS % (AUTO) 0.2 % (0-2); EOSINOPHILS % (AUTO) 0.2 % (0-6); HEMATOCRIT 26.4 % (36.0-47.0); HEMOGLOBIN 8.3 g/dL (12.0-15.5); LYMPHOCYTES % (AUTO) 15.1 % (13-45); MEAN CORPUSCULAR HEMOGLOBIN 21.2 pg (27.0-33.4); MEAN CORPUSCULAR HGB CONC 31.4 g/dL (32.0-36.0); MEAN CORPUSCULAR VOLUME 68 fl (80-97); MONOCYTES % (AUTO) 7.9 % (3-13); PLATELET COUNT 554 10^3/uL (150-450); RED BLOOD COUNT 3.91 10^6/uL (3.72-5.28); RED CELL DISTRIBUTION WIDTH 27.2 % (11.5-14.0); SEGMENTED NEUTROPHILS % (AUTO) 76.6 % (42-78); TOTAL CELLS COUNTED % (AUTO) 100 %; WHITE BLOOD COUNT 10.3 10^3/uL (4.0-10.5)
[2017-05-31] MEDS: NORMAL SALINE 1000 ML 1,000 ML IV PRN (07:02)
[2017-05-31 07:07] LABS: HYPOCHROMASIA 2+
[2017-05-31 07:08] LABS: ACANTHOCYTES 1+; ANISOCYTOSIS 3+; OVALOCYTES 1+; PLATELET COMMENT INCREASED; POIKILOCYTOSIS 2+; TEAR DROP CELLS SLIGHT
--- NOTE | 2017-05-31 08:09 | PDOC PROGRESS REPORT ---
Subjective Progress Note for:: 05/31/17 Subjective:: no fevers Reason For Visit: ACUTE ON CHRONIC DECUBITIS ULCER INFECTION Physical Exam Vital Signs: Temp Pulse Resp BP Pulse Ox 98.5 F 88 15 123/69 99 05/31/17 03:31 05/31/17 03:31 05/31/17 03:31 05/31/17 03:31 05/31/17 03:31 Intake & Output 05/30/17 05/31/17 06/01/17 06:59 06:59 06:59 Intake Total 3515 5475 Output Total 2450 1200 Balance 1065 4275 Weight 86.4 kg 92.2 kg Musculoskeletal exam: PRESENT: other - decub ulcers Results Laboratory Results: 05/31/17 05:07 05/31/17 05:07 05/29/17 05/31/17 05/31/17 06:40 05:07 05:07 WBC 10.3 RBC 3.91 Hgb 8.3 L Hct 26.4 L MCV 68 L MCH 21.2 L MCHC 31.4 L RDW 27.2 H Plt Count 554 H Seg Neutrophils % 76.6 Lymphocytes % 15.1 Monocytes % 7.9 Eosinophils % 0.2 Basophils % 0.2 Absolute Neutrophils 7.9 Absolute Lymphocytes 1.6 Absolute Monocytes 0.8 Absolute Eosinophils 0.0 Absolute Basophils 0.0 Sodium 139.9 Potassium 4.3 Chloride 108 H Carbon Dioxide 25 Anion Gap 7 BUN 11 Creatinine 1.04 Est GFR ( Amer) > 60 Est GFR (Non-Af Amer) 53 L Glucose 94 Calcium 8.1 L Magnesium 1.7 Transferrin 167 L Total Bilirubin < 0.1 L AST 12 L ALT 16 Alkaline Phosphatase 90 Total Protein 5.0 L Albumin 2.4 L Impressions: Pelvis CT 05/29/17 15:02 IMPRESSION: Large right ischial decubitus ulcer with 10 x 3 cm intramuscular abscess extending into the posterior upper thigh along the hamstring muscles. Contracted bladder around a Glover catheter balloon and bladder stones. Upon filling of the suprapubic catheter and bladder with contrast, there was spillage of contrast through the patient's urethra onto the perineum. No vesicoureteral reflux or extravasation from the bladder. Guidance Fluoroscopy 05/30/17 00:00 IMPRESSION: SUCCESSFUL PLACEMENT OF A 5 FR DUAL LUMEN 35 CM PICC IN THE RIGHT BASILIC VEIN. Interventional Vascular Procedure 05/30/17 00:00 IMPRESSION: SUCCESSFUL PLACEMENT OF A 5 FR DUAL LUMEN 35 CM PICC IN THE RIGHT BASILIC VEIN. PICC Line Insertion 05/30/17 08:00 IMPRESSION: SUCCESSFUL PLACEMENT OF A 5 FR DUAL LUMEN 35 CM PICC IN THE RIGHT BASILIC VEIN. Assessment & Plan - Plan Summary Plan Summary: for decub ulcers debridement tomorrow
[2017-05-31] MEDS: FERROUS SULFATE 325 MG TABLET PO SCH ×2 (09:44→17:12)
[2017-05-31] MEDS: NORMAL SALINE 10 ML SDV (SCHEDULED) IV SCH ×2 (09:45→21:05)
[2017-05-31] MEDS ORDERED: FUROSEMIDE INJ/PF 20 MG/2 ML SDV IV ONE (14:25)
--- NOTE | 2017-05-31 15:03 | PDOC PROGRESS REPORT ---
Subjective Progress Note for:: 05/31/17 Subjective:: Pt states that she is doing okay. Nursing state that her blood pressure is stable. Reason For Visit: ACUTE ON CHRONIC DECUBITIS ULCER INFECTION Physical Exam Vital Signs: Temp Pulse Resp BP Pulse Ox 99.2 F 87 16 112/65 96 05/31/17 07:32 05/31/17 07:32 05/31/17 07:32 05/31/17 07:32 05/31/17 07:32 Intake & Output 05/30/17 05/31/17 06/01/17 06:59 06:59 06:59 Intake Total 3515 5475 Output Total 2450 1200 Balance 1065 4275 Weight 86.4 kg 92.2 kg General appearance: PRESENT: no acute distress, well-developed, well-nourished Head exam: PRESENT: atraumatic, normocephalic Eye exam: PRESENT: conjunctiva pink, EOMI. ABSENT: scleral icterus Ear exam: PRESENT: normal external ear exam Mouth exam: PRESENT: moist, tongue midline Neck exam: ABSENT: carotid bruit, JVD, lymphadenopathy, thyromegaly Respiratory exam: PRESENT: crackles. ABSENT: rales, rhonchi, wheezes Cardiovascular exam: PRESENT: RRR. ABSENT: diastolic murmur, rubs, systolic murmur Pulses: PRESENT: normal dorsalis pedis pul Vascular exam: PRESENT: normal capillary refill GI/Abdominal exam: PRESENT: normal bowel sounds, soft. ABSENT: distended, guarding, mass, organolmegaly, rebound, tenderness Rectal exam: PRESENT: deferred Extremities exam: PRESENT: other - + bilateral lower muscle wasting. ABSENT: calf tenderness, clubbing Musculoskeletal exam: PRESENT: other - +bilateral muscle wasting of lower ext Neurological exam: PRESENT: alert, awake, oriented to person, oriented to place , oriented to time Psychiatric exam: PRESENT: appropriate affect, normal mood. ABSENT: homicidal ideation, suicidal ideation Skin exam: PRESENT: dry, other - right hip with dressing in placed.. ABSENT: cyanosis, rash Results Laboratory Results: 05/31/17 05:07 05/31/17 05:07 05/31/17 05/31/17 05:07 05:07 WBC 10.3 RBC 3.91 Hgb 8.3 L Hct 26.4 L MCV 68 L MCH 21.2 L MCHC 31.4 L RDW 27.2 H Plt Count 554 H Seg Neutrophils % 76.6 Lymphocytes % 15.1 Monocytes % 7.9 Eosinophils % 0.2 Basophils % 0.2 Absolute Neutrophils 7.9 Absolute Lymphocytes 1.6 Absolute Monocytes 0.8 Absolute Eosinophils 0.0 Absolute Basophils 0.0 Sodium 139.9 Potassium 4.3 Chloride 108 H Carbon Dioxide 25 Anion Gap 7 BUN 11 Creatinine 1.04 Est GFR ( Amer) > 60 Est GFR (Non-Af Amer) 53 L Glucose 94 Calcium 8.1 L Magnesium 1.7 Total Bilirubin < 0.1 L AST 12 L ALT 16 Alkaline Phosphatase 90 Total Protein 5.0 L Albumin 2.4 L 05/29/17 12:45 Decubitis Ulcer - Sacral Gram Stain - Final 05/29/17 12:45 Decubitis Ulcer - Sacral Wound Culture - Final Escherichia Coli Impressions: Pelvis CT 05/29/17 15:02 IMPRESSION: Large right ischial decubitus ulcer with 10 x 3 cm intramuscular abscess extending into the posterior upper thigh along the hamstring muscles. Contracted bladder around a Glover catheter balloon and bladder stones. Upon filling of the suprapubic catheter and bladder with contrast, there was spillage of contrast through the patient's urethra onto the perineum. No vesicoureteral reflux or extravasation from the bladder. Guidance Fluoroscopy 05/30/17 00:00 IMPRESSION: SUCCESSFUL PLACEMENT OF A 5 FR DUAL LUMEN 35 CM PICC IN THE RIGHT BASILIC VEIN. Interventional Vascular Procedure 05/30/17 00:00 IMPRESSION: SUCCESSFUL PLACEMENT OF A 5 FR DUAL LUMEN 35 CM PICC IN THE RIGHT BASILIC VEIN. PICC Line Insertion 05/30/17 08:00 IMPRESSION: SUCCESSFUL PLACEMENT OF A 5 FR DUAL LUMEN 35 CM PICC IN THE RIGHT BASILIC VEIN. Assessment & Plan - Diagnosis (1) Sepsis Qualifiers: Sepsis type: sepsis due to unspecified organism Qualified Code(s): A41.9 - Sepsis, unspecified organism Is this a current diagnosis for this admission?: Yes Plan: Present at time of admission secondary to large right thigh abscess E. coli and Large right side open wound status post surgical incision of abscess: Discontinue vancomycin and continue Zosyn. (2) Decubitus ulcer Qualifiers: Pressure ulcer location: contiguous region involving back, buttock, and hip Pressure ulcer stage: stage 4 Laterality: right Qualified Code(s): L89.44 - Pressure ulcer of contiguous site of back, buttock and hip, stage 4 Is this a current diagnosis for this admission?: Yes Plan: Patient with large decubitus ulcer that appears to be infected. Continue vancomycin and continue Zosyn. (3) Bacteremia Is this a current diagnosis for this admission?: Yes Plan: Strep viridans: Will continue vancomycin. Will arrange for MACIE (4) A-fib Qualifiers: Atrial fibrillation type: chronic Qualified Code(s): I48.2 - Chronic atrial fibrillation Is this a current diagnosis for this admission?: Yes Plan: Pt's heart rate is controlled currently. However if heart rate not controlled give low dose Metoprolol. Will hold Eliquis (5) Fever Is this a current diagnosis for this admission?: Yes Plan: Secondary to decubitus ulcer and E. Coli Abscess: Will continue vancomycin and continue Zosyn. (6) UTI (urinary tract infection) Qualifiers: Urinary tract infection type: acute cystitis Hematuria presence: without hematuria Qualified Code(s): N30.00 - Acute cystitis without hematuria Is this a current diagnosis for this admission?: Yes Plan: Concern for UTI: Ruled out. Most likely colonization. Peers to be colonized with enterococcus faecalis getting looking at prior urine cultures. (7) Anemia Qualifiers: Anemia type: unspecified type Qualified Code(s): D64.9 - Anemia, unspecified Is this a current diagnosis for this admission?: Yes Plan: Iron deficiency anemia: Will continue iron replacement. Hemoccult stools pending (8) Hyponatremia Is this a current diagnosis for this admission?: Yes Plan: Resolved. (9) Hypertension Qualifiers: Hypertension type: essential hypertension Qualified Code(s): I10 - Essential (primary) hypertension Is this a current diagnosis for this admission?: Yes Plan: stable. (10) Sacral decubitus ulcer, stage IV Is this a current diagnosis for this admission?: Yes Plan: Complicated by right thigh abscess E. coli: Will continue Zosyn and vancomycin. (11) Complication, suprapubic catheter obstruction Qualifiers: Encounter type: subsequent encounter Qualified Code(s): T83.090D - Other mechanical complication of cystostomy catheter, subsequent encounter Is this a current diagnosis for this admission?: Yes Plan: Resolved (12) Functional quadriplegia Is this a current diagnosis for this admission?: Yes Plan: Supportive care. (13) Vesicocutaneous fistula Is this a current diagnosis for this admission?: Yes Plan: Ruled Out (14) Large right ischial Decubits ulcer Is this a current diagnosis for this admission?: Yes Plan: S/P I and D Right thigh abscess E. coli: Will continue IV antibiotics. (15) Right Intramuscular Abscess Is this a current diagnosis for this admission?: Yes Plan: With massive tissue necrosis status post I/D: Will continue current antibiotics. (16) Volume overload Is this a current diagnosis for this admission?: Yes Plan: Will give Lasix 20 mg IV X 1. (17) DVT prophylaxis Is this a current diagnosis for this admission?: Yes Plan: Heparin (18) Full code status Is this a current diagnosis for this admission?: Yes - Time Time Spent with patient: 15-24 minutes
[2017-05-31] MEDS: IPRATROPIUM/ALBUTEROL 0.5-2.5 MG/3 ML AMPUL NEB PRN ×2 (16:09→21:14)
[2017-05-31] MEDS ORDERED: DILTIAZEM HCL INJ 25 MG/5 ML VIAL IV ONE (19:28)
[2017-05-31] MEDS ORDERED: DILTIAZEM HCL 30 MG TABLET PO ONE (19:37)
[2017-05-31] MEDS: MAGNESIUM SULFATE/D5W 1 GM/100 ML RTUPB IV SCH ×2 (19:50→21:04)
[2017-05-31] MEDS ORDERED: DILTIAZEM HCL 180 MG CAPSULE.CR PO SCH (22:00)
[2017-05-31] MEDS: NORMAL SALINE 10 ML SDV (AFTER EACH USE) IV PRN (22:20)
[2017-05-31] MEDS: DILTIAZEM HCL 30 MG TABLET PO SCH (23:37)
[2017-06-01] MEDS: VANCOMYCIN HCL 1,500 MG in DEXTROSE 5%-WATER 250 ML IV SCH ×2 (00:28→12:11)
[2017-06-01] MEDS: NORMAL SALINE 10 ML SDV (AFTER EACH USE) IV PRN ×3 (02:37→19:50)
[2017-06-01 04:56] LABS: ABSOLUTE LYMPHOCYTES (AUTO) 1.3 10^3/uL (0.5-4.7); ABSOLUTE MONOCYTES (AUTO) 0.8 10^3/uL (0.1-1.4); ABSOLUTE NEUT (AUTO) 8.1 10^3/uL (1.7-8.2); BASOPHILS % (AUTO) 0.2 % (0-2); EOSINOPHILS % (AUTO) 0.4 % (0-6); HEMATOCRIT 25.6 % (36.0-47.0); LYMPHOCYTES % (AUTO) 12.9 % (13-45); MEAN CORPUSCULAR HEMOGLOBIN 21.2 pg (27.0-33.4); MEAN CORPUSCULAR HGB CONC 31.3 g/dL (32.0-36.0); MEAN CORPUSCULAR VOLUME 68 fl (80-97); MONOCYTES % (AUTO) 7.9 % (3-13); PLATELET COUNT 581 10^3/uL (150-450); RED BLOOD COUNT 3.77 10^6/uL (3.72-5.28); RED CELL DISTRIBUTION WIDTH 27.3 % (11.5-14.0); SEGMENTED NEUTROPHILS % (AUTO) 78.6 % (42-78); TOTAL CELLS COUNTED % (AUTO) 100 %; WHITE BLOOD COUNT 10.3 10^3/uL (4.0-10.5)
[2017-06-01 05:27] LABS: ALANINE AMINOTRANSFERASE 18 U/L (9-52); ALBUMIN 2.2 g/dL (3.5-5.0); ALKALINE PHOSPHATASE 110 U/L (38-126); ANION GAP 6 (5-19); ASPARTATE AMINO TRANSFERASE 13 U/L (14-36); BILIRUBIN,DIRECT 0.2 mg/dL (0.0-0.4); BILIRUBIN,TOTAL 0.2 mg/dL (0.2-1.3); BLOOD UREA NITROGEN 10 mg/dL (7-20); CALCIUM 8.7 mg/dL (8.4-10.2); CARBON DIOXIDE 26 mmol/L (22-30); CHLORIDE 109 mmol/L (98-107); GLUCOSE 81 mg/dL (75-110); POTASSIUM 3.9 mmol/L (3.6-5.0); SODIUM 140.8 mmol/L (137-145)
[2017-06-01] MEDS: PIPERACILLIN SODIUM/TAZOBACTAM 3.375 GM in NORMAL SALINE 100 ML IV SCH ×4 (05:27→23:48)
[2017-06-01] MEDS: HEPARIN SOD (PORCINE) 5,000 UNIT/ML 1 ML SYRINGE SUBCUT SCH ×2 (05:27→18:59)
[2017-06-01] MEDS: LANSOPRAZOLE 30 MG TAB.RAP.DR PO SCH (05:28)
[2017-06-01] MEDS: DILTIAZEM HCL 30 MG TABLET PO SCH ×4 (05:28→23:45)
[2017-06-01 05:33] LABS: ANISOCYTOSIS 3+; HYPOCHROMASIA 2+; POIKILOCYTOSIS 2+; TOXIC GRANULATION 2+
[2017-06-01 05:34] LABS: OVALOCYTES 1+; PLATELET COMMENT ADEQUATE; SCHISTOCYTES 2+; TARGET CELLS 1+; TEAR DROP CELLS SLIGHT
--- NOTE | 2017-06-01 08:59 | EKG REPORT ---
SEVERITY:- ABNORMAL ECG - ATRIAL FIBRILLATION WITH RAPID V-RATE REPOLARIZATION ABNORMALITY, PROB RATE RELATED : Confirmed by: Trevor Phillip 01-Jun-2017 08:58:57
[2017-06-01] MEDS: FERROUS SULFATE 325 MG TABLET PO SCH ×2 (10:55→18:59)
[2017-06-01] MEDS: NORMAL SALINE 10 ML SDV (SCHEDULED) IV SCH ×2 (10:56→23:47)
--- NOTE | 2017-06-01 12:38 | OPERATIVE REPORT E ---
Operative Report NAME: JAMEL PHILLIPS : 1950 AGE: 67Y DATE OF SURGERY: 06/01/2017 ROOM: 305 PREOPERATIVE DIAGNOSIS: SACRAL DEEP DECUBITUS ULCERS WITH NECROTIC TISSUE. POSTOPERATIVE DIAGNOSIS: SACRAL DEEP DECUBITUS ULCERS WITH NECROTIC TISSUE. OPERATION: Excisional sharp debridement of the necrotic soft tissue in the sacral location in the right greater trochanter area. SURGEON: TARA DAS M.D. HISTORY AND INDICATIONS: Patient has been bedridden mostly, has decubitus ulcers due to immobility and medical condition. She had debridement before. She needed re-debridement. PROCEDURE: Procedure was done at the bedside. Patient has no sensation of pain there. Patient was able to tolerate without any anesthesia. Patient was placed in the left lateral position. The right greater trochanter area/sacral area cleaned and DEBRIDED . Then with sharp scissors, 2 areas in the right greater trochanter area and the sacral area, necrotic tissue was debrided down to the fascial level with sharp excision. Wound was irrigated. Dressings were applied. The patient tolerated the procedure very well. DICTATING PHYSICIAN: TARA DAS M.D. [id number] PHY#: [id number] ID: [id number] JOB#: [id number] ACCT: [id number] cc:TARA DAS M.D. > MTDD
[2017-06-01] MEDS: IPRATROPIUM/ALBUTEROL 0.5-2.5 MG/3 ML AMPUL NEB PRN (13:34)
[2017-06-01 14:51] LABS: VANCOMYCIN,TROUGH 25.4 ug/mL (5.0-20.0)
--- NOTE | 2017-06-01 17:43 | PDOC PROGRESS REPORT ---
Subjective Progress Note for:: 06/01/17 Subjective:: Pt states that she is feeling better. Nursing states that overnight pt went into A.fib with RVR. Pt was placed on Diltiazem Q8h. Pt states that she feels better. Reason For Visit: ACUTE ON CHRONIC DECUBITIS ULCER INFECTION Physical Exam Vital Signs: Temp Pulse Resp BP Pulse Ox 99.0 F 84 16 117/55 L 98 06/01/17 11:27 06/01/17 13:34 06/01/17 13:34 06/01/17 11:27 06/01/17 11:27 Intake & Output 05/31/17 06/01/17 06/02/17 06:59 06:59 06:59 Intake Total 5475 2958 275 Output Total 1200 5000 1000 Balance 4275 -2042 -725 Weight 92.2 kg 93.6 kg General appearance: PRESENT: no acute distress, well-developed, well-nourished Head exam: PRESENT: atraumatic, normocephalic Eye exam: PRESENT: conjunctiva pink, EOMI. ABSENT: scleral icterus Ear exam: PRESENT: normal external ear exam Mouth exam: PRESENT: moist, tongue midline Neck exam: ABSENT: carotid bruit, JVD, lymphadenopathy, thyromegaly Respiratory exam: PRESENT: clear to auscultation fabio. ABSENT: rales, rhonchi, wheezes Cardiovascular exam: PRESENT: irregular rhythm. ABSENT: diastolic murmur, rubs , systolic murmur Pulses: PRESENT: normal dorsalis pedis pul Vascular exam: PRESENT: normal capillary refill GI/Abdominal exam: PRESENT: normal bowel sounds, soft. ABSENT: distended, guarding, mass, organolmegaly, rebound, tenderness Rectal exam: PRESENT: deferred Extremities exam: PRESENT: other - dressing over right hip. ABSENT: calf tenderness, clubbing, pedal edema Musculoskeletal exam: PRESENT: other - + dressing over right hip Neurological exam: PRESENT: alert, awake, oriented to person, oriented to place , oriented to time, oriented to situation, CN II-XII grossly intact. ABSENT: motor sensory deficit Psychiatric exam: PRESENT: appropriate affect, normal mood. ABSENT: homicidal ideation, suicidal ideation Skin exam: PRESENT: dry, intact, warm, other - dressing over right hip.. ABSENT : cyanosis, rash Results Laboratory Results: 06/01/17 04:22 06/01/17 12:10 06/01/17 06/01/17 06/01/17 04:22 04:22 12:10 WBC 10.3 RBC 3.77 Hgb 8.0 L Hct 25.6 L MCV 68 L MCH 21.2 L MCHC 31.3 L RDW 27.3 H Plt Count 581 H Seg Neutrophils % 78.6 H Lymphocytes % 12.9 L Monocytes % 7.9 Eosinophils % 0.4 Basophils % 0.2 Absolute Neutrophils 8.1 Absolute Lymphocytes 1.3 Absolute Monocytes 0.8 Absolute Eosinophils 0.0 Absolute Basophils 0.0 Sodium 140.8 Potassium 3.9 Chloride 109 H Carbon Dioxide 26 Anion Gap 6 BUN 10 Creatinine 1.14 0.93 Est GFR ( Amer) 58 L > 60 Est GFR (Non-Af Amer) 48 L > 60 Glucose 81 Calcium 8.7 Total Bilirubin 0.2 AST 13 L ALT 18 Alkaline Phosphatase 110 Total Protein 5.0 L Albumin 2.2 L 05/29/17 17:00 Buttocks - Abscess Gram Stain - Final 05/29/17 17:00 Buttocks - Abscess Wound Culture - Final Escherichia Coli Bacteroides Fragilis Group Peptostreptococcus Species 05/29/17 17:00 Buttocks - Abscess Gram Stain - Final 05/29/17 17:00 Buttocks - Abscess Wound Culture - Final Escherichia Coli Bacteroides Fragilis Group Clostridium Sp.not Perfringens Peptostreptococcus Species Impressions: Pelvis CT 05/29/17 15:02 IMPRESSION: Large right ischial decubitus ulcer with 10 x 3 cm intramuscular abscess extending into the posterior upper thigh along the hamstring muscles. Contracted bladder around a Glover catheter balloon and bladder stones. Upon filling of the suprapubic catheter and bladder with contrast, there was spillage of contrast through the patient's urethra onto the perineum. No vesicoureteral reflux or extravasation from the bladder. Guidance Fluoroscopy 05/30/17 00:00 IMPRESSION: SUCCESSFUL PLACEMENT OF A 5 FR DUAL LUMEN 35 CM PICC IN THE RIGHT BASILIC VEIN. Interventional Vascular Procedure 05/30/17 00:00 IMPRESSION: SUCCESSFUL PLACEMENT OF A 5 FR DUAL LUMEN 35 CM PICC IN THE RIGHT BASILIC VEIN. PICC Line Insertion 05/30/17 08:00 IMPRESSION: SUCCESSFUL PLACEMENT OF A 5 FR DUAL LUMEN 35 CM PICC IN THE RIGHT BASILIC VEIN. Assessment & Plan - Diagnosis (1) Sepsis Qualifiers: Sepsis type: sepsis due to unspecified organism Qualified Code(s): A41.9 - Sepsis, unspecified organism Is this a current diagnosis for this admission?: Yes Plan: Present at time of admission secondary to large right thigh abscess E. coli and Large right side open wound status post surgical incision of abscess: Zosyn. (2) Decubitus ulcer Qualifiers: Pressure ulcer location: contiguous region involving back, buttock, and hip Pressure ulcer stage: stage 4 Laterality: right Qualified Code(s): L89.44 - Pressure ulcer of contiguous site of back, buttock and hip, stage 4 Is this a current diagnosis for this admission?: Yes Plan: Patient with large decubitus ulcer that appears to be infected. continue Zosyn. (3) Bacteremia Is this a current diagnosis for this admission?: Yes Plan: Strep viridans: Ruled Out. Micro has confirmed that it is Staph Epidermitis (4) A-fib Qualifiers: Atrial fibrillation type: chronic Qualified Code(s): I48.2 - Chronic atrial fibrillation Is this a current diagnosis for this admission?: Yes Plan: Will continue Diltiazem (5) Fever Is this a current diagnosis for this admission?: Yes Plan: Secondary to decubitus ulcer and E. Coli Abscess: continue Zosyn. (6) UTI (urinary tract infection) Qualifiers: Urinary tract infection type: acute cystitis Hematuria presence: without hematuria Qualified Code(s): N30.00 - Acute cystitis without hematuria Is this a current diagnosis for this admission?: Yes Plan: Concern for UTI: Ruled out. Most likely colonization. Peers to be colonized with enterococcus faecalis getting looking at prior urine cultures. (7) Anemia Qualifiers: Anemia type: unspecified type Qualified Code(s): D64.9 - Anemia, unspecified Is this a current diagnosis for this admission?: Yes Plan: Iron deficiency anemia: Will continue iron replacement. Hemoccult stools pending (8) Hyponatremia Is this a current diagnosis for this admission?: Yes Plan: Resolved. (9) Hypertension Qualifiers: Hypertension type: essential hypertension Qualified Code(s): I10 - Essential (primary) hypertension Is this a current diagnosis for this admission?: Yes Plan: stable. (10) Sacral decubitus ulcer, stage IV Is this a current diagnosis for this admission?: Yes Plan: Complicated by right thigh abscess E. coli: Will continue Zosyn . (11) Complication, suprapubic catheter obstruction Qualifiers: Encounter type: subsequent encounter Qualified Code(s): T83.090D - Other mechanical complication of cystostomy catheter, subsequent encounter Is this a current diagnosis for this admission?: Yes Plan: Resolved (12) Functional quadriplegia Is this a current diagnosis for this admission?: Yes Plan: Supportive care. (13) Vesicocutaneous fistula Is this a current diagnosis for this admission?: Yes Plan: Ruled Out (14) Large right ischial Decubits ulcer Is this a current diagnosis for this admission?: Yes Plan: S/P I and D Right thigh abscess E. coli: Will continue IV antibiotics. (15) Right Intramuscular Abscess Is this a current diagnosis for this admission?: Yes Plan: With massive tissue necrosis status post I/D: Will continue current antibiotics. (16) Volume overload Is this a current diagnosis for this admission?: Yes Plan: Resolved. (17) DVT prophylaxis Is this a current diagnosis for this admission?: Yes Plan: Heparin (18) Full code status Is this a current diagnosis for this admission?: Yes - Time Time Spent with patient: 25-34 minutes
[2017-06-01] MEDS ORDERED: GLYCERIN (PEDIATRIC) SUPP.RECT PR ONE (19:06)
[2017-06-01] MEDS ORDERED: GLYCERIN (ADULT) SUPP.RECT PR PRN (19:06)
[2017-06-01] MEDS ORDERED: GLYCERIN (ADULT) SUPP.RECT PR ONE (21:00)
[2017-06-02 05:27] LABS: HEMATOCRIT 25.7 % (36.0-47.0); MEAN CORPUSCULAR HEMOGLOBIN 20.8 pg (27.0-33.4); MEAN CORPUSCULAR HGB CONC 30.6 g/dL (32.0-36.0); MEAN CORPUSCULAR VOLUME 68 fl (80-97); PLATELET COUNT 571 10^3/uL (150-450); RED BLOOD COUNT 3.77 10^6/uL (3.72-5.28); RED CELL DISTRIBUTION WIDTH 27.8 % (11.5-14.0); WHITE BLOOD COUNT 9.4 10^3/uL (4.0-10.5)
[2017-06-02] MEDS: DILTIAZEM HCL 30 MG TABLET PO SCH ×2 (05:31→11:46)
[2017-06-02] MEDS: PIPERACILLIN SODIUM/TAZOBACTAM 3.375 GM in NORMAL SALINE 100 ML IV SCH ×4 (05:32→23:32)
[2017-06-02] MEDS: LANSOPRAZOLE 30 MG TAB.RAP.DR PO SCH (05:32)
[2017-06-02] MEDS: HEPARIN SOD (PORCINE) 5,000 UNIT/ML 1 ML SYRINGE SUBCUT SCH ×2 (05:32→18:04)
[2017-06-02] MEDS: NORMAL SALINE 10 ML SDV (AFTER EACH USE) IV PRN (05:33)
[2017-06-02 05:55] LABS: ABSOLUTE LYMPHOCYTES# (MANUAL) 1.4 10^3/uL (0.5-4.7); ABSOLUTE MONOCYTES # (MANUAL) 0.4 10^3/uL (0.1-1.4); ABSOLUTE NEUTROPHILS# (MANUAL) 7.4 10^3/uL (1.7-8.2); BAND NEUTROPHILS % (MANUAL) 1 % (3-5); BASOPHILS % (MANUAL) 2 % (0-2); EOSINOPHILS % (MANUAL) 0 % (0-6); LYMPHOCYTES % (MANUAL) 15 % (13-45); METAMYELOCYTES % (MANUAL) 1 % (0); MONOCYTES % (MANUAL) 4 % (3-13); SEGMENTED NEUTROPHILS % (MAN) 77 % (42-78); TOTAL CELLS COUNTED 100
[2017-06-02 05:56] LABS: TOXIC GRANULATION 1+
[2017-06-02 05:57] LABS: ANISOCYTOSIS 3+; OVALOCYTES SLIGHT; PLATELET COMMENT ADEQUATE; PLATELET LARGE PRESENT; POIKILOCYTOSIS SLIGHT; SCHISTOCYTES SLIGHT; TEAR DROP CELLS SLIGHT
[2017-06-02 05:58] LABS: ALANINE AMINOTRANSFERASE 18 U/L (9-52); ALBUMIN 2.3 g/dL (3.5-5.0); ALKALINE PHOSPHATASE 127 U/L (38-126); ASPARTATE AMINO TRANSFERASE 12 U/L (14-36); BILIRUBIN,DIRECT 0.1 mg/dL (0.0-0.4); BILIRUBIN,TOTAL 0.2 mg/dL (0.2-1.3); BLOOD UREA NITROGEN 8 mg/dL (7-20); CALCIUM 8.7 mg/dL (8.4-10.2); GLUCOSE 77 mg/dL (75-110); POTASSIUM 3.9 mmol/L (3.6-5.0); TOTAL PROTEIN 4.9 g/dL (6.3-8.2)
[2017-06-02 05:59] LABS: HEMOGLOBIN 7.9 g/dL (12.0-15.5)
[2017-06-02 06:15] LABS: CARBON DIOXIDE 27 mmol/L (22-30); CHLORIDE 108 mmol/L (98-107); SODIUM 142.7 mmol/L (137-145)
[2017-06-02 06:22] LABS: ANION GAP 8 (5-19)
[2017-06-02] MEDS ORDERED: GLYCERIN (ADULT) SUPP.RECT PR PRN (08:20)
[2017-06-02] MEDS: IPRATROPIUM/ALBUTEROL 0.5-2.5 MG/3 ML AMPUL NEB PRN ×2 (09:38→16:53)
[2017-06-02] MEDS: FERROUS SULFATE 325 MG TABLET PO SCH ×2 (11:46→18:03)
[2017-06-02] MEDS: NORMAL SALINE 10 ML SDV (SCHEDULED) IV SCH ×2 (11:47→21:50)
[2017-06-02] MEDS ORDERED: BISACODYL 10 MG SUPP.RECT PR ONE (14:00)
--- NOTE | 2017-06-02 16:34 | PDOC PROGRESS REPORT ---
Subjective Progress Note for:: 06/02/17 Subjective:: Pt states that she has not had a bowel movement. Pt states that dulcolax suppository is the only thing that helps. Reason For Visit: ACUTE ON CHRONIC DECUBITIS ULCER INFECTION Physical Exam Vital Signs: Temp Pulse Resp BP Pulse Ox 99.8 F 123 H 18 130/56 H 94 06/02/17 07:03 06/02/17 09:41 06/02/17 09:41 06/02/17 07:03 06/02/17 09:41 Intake & Output 06/01/17 06/02/17 06/03/17 06:59 06:59 06:59 Intake Total 2958 2276 Output Total 5000 5650 Balance -2041 Weight 93.6 kg 88.1 kg General appearance: PRESENT: no acute distress, well-developed, well-nourished Head exam: PRESENT: atraumatic, normocephalic Eye exam: PRESENT: conjunctiva pink, EOMI, PERRLA. ABSENT: scleral icterus Ear exam: PRESENT: normal external ear exam Mouth exam: PRESENT: moist, tongue midline Neck exam: ABSENT: carotid bruit, JVD, lymphadenopathy, thyromegaly Respiratory exam: PRESENT: clear to auscultation fabio. ABSENT: rales, rhonchi, wheezes Cardiovascular exam: PRESENT: irregular rhythm, tachycardia Pulses: PRESENT: normal dorsalis pedis pul Vascular exam: PRESENT: normal capillary refill GI/Abdominal exam: PRESENT: normal bowel sounds, soft. ABSENT: distended, guarding, mass, organolmegaly, rebound, tenderness Rectal exam: PRESENT: deferred Extremities exam: PRESENT: tenderness - + bilateral lower ext muscle wasting. ABSENT: calf tenderness, clubbing, pedal edema Musculoskeletal exam: PRESENT: tenderness - bilateral lower ext muscle wasting, + right lower ext with dressed Neurological exam: PRESENT: alert, awake, oriented to person, oriented to place , oriented to time, oriented to situation, CN II-XII grossly intact. ABSENT: motor sensory deficit Psychiatric exam: PRESENT: appropriate affect, normal mood. ABSENT: homicidal ideation, suicidal ideation Skin exam: PRESENT: other - + right lower ext opened wound with dressing in place. Results Laboratory Results: 06/02/17 04:42 06/02/17 04:42 06/02/17 06/02/17 04:42 04:42 WBC 9.4 RBC 3.77 Hgb 7.9 L Hct 25.7 L MCV 68 L MCH 20.8 L MCHC 30.6 L RDW 27.8 H Plt Count 571 H Seg Neutrophils % Not Reportable Lymphocytes % Not Reportable Monocytes % Not Reportable Eosinophils % Not Reportable Basophils % Not Reportable Absolute Neutrophils Not Reportable Absolute Lymphocytes Not Reportable Absolute Monocytes Not Reportable Absolute Eosinophils Not Reportable Absolute Basophils Not Reportable Sodium 142.7 Potassium 3.9 Chloride 108 H Carbon Dioxide 27 Anion Gap 8 BUN 8 Creatinine 1.09 Est GFR ( Amer) > 60 Est GFR (Non-Af Amer) 50 L Glucose 77 Calcium 8.7 Magnesium 2.0 Total Bilirubin 0.2 AST 12 L ALT 18 Alkaline Phosphatase 127 H Total Protein 4.9 L Albumin 2.3 L 05/27/17 18:56 Blood Blood Culture - Final NO GROWTH IN 5 DAYS Impressions: Pelvis CT 05/29/17 15:02 IMPRESSION: Large right ischial decubitus ulcer with 10 x 3 cm intramuscular abscess extending into the posterior upper thigh along the hamstring muscles. Contracted bladder around a Glover catheter balloon and bladder stones. Upon filling of the suprapubic catheter and bladder with contrast, there was spillage of contrast through the patient's urethra onto the perineum. No vesicoureteral reflux or extravasation from the bladder. Guidance Fluoroscopy 05/30/17 00:00 IMPRESSION: SUCCESSFUL PLACEMENT OF A 5 FR DUAL LUMEN 35 CM PICC IN THE RIGHT BASILIC VEIN. Interventional Vascular Procedure 05/30/17 00:00 IMPRESSION: SUCCESSFUL PLACEMENT OF A 5 FR DUAL LUMEN 35 CM PICC IN THE RIGHT BASILIC VEIN. PICC Line Insertion 05/30/17 08:00 IMPRESSION: SUCCESSFUL PLACEMENT OF A 5 FR DUAL LUMEN 35 CM PICC IN THE RIGHT BASILIC VEIN. Assessment & Plan - Diagnosis (1) Sepsis Qualifiers: Sepsis type: sepsis due to unspecified organism Qualified Code(s): A41.9 - Sepsis, unspecified organism Is this a current diagnosis for this admission?: Yes Plan: Present at time of admission secondary to large right thigh abscess E. coli and Large right side open wound status post surgical incision of abscess: Zosyn. (2) Decubitus ulcer Qualifiers: Pressure ulcer location: contiguous region involving back, buttock, and hip Pressure ulcer stage: stage 4 Laterality: right Qualified Code(s): L89.44 - Pressure ulcer of contiguous site of back, buttock and hip, stage 4 Is this a current diagnosis for this admission?: Yes Plan: Patient with large decubitus ulcer that appears to be infected. continue Zosyn. (3) Constipation Is this a current diagnosis for this admission?: Yes Plan: Dulcolax suppository. If it does not work will give enema. (4) Bacteremia Is this a current diagnosis for this admission?: Yes Plan: Strep viridans: Ruled Out. Micro has confirmed that it is Staph Epidermitis (5) A-fib Qualifiers: Atrial fibrillation type: chronic Qualified Code(s): I48.2 - Chronic atrial fibrillation Is this a current diagnosis for this admission?: Yes Plan: Will continue Diltiazem (6) Fever Is this a current diagnosis for this admission?: Yes Plan: Secondary to decubitus ulcer and E. Coli Abscess: continue Zosyn. (7) UTI (urinary tract infection) Qualifiers: Urinary tract infection type: acute cystitis Hematuria presence: without hematuria Qualified Code(s): N30.00 - Acute cystitis without hematuria Is this a current diagnosis for this admission?: Yes Plan: Concern for UTI: Ruled out. Most likely colonization. Appears to be colonized with enterococcus faecalis getting looking at prior urine cultures. (8) Anemia Qualifiers: Anemia type: unspecified type Qualified Code(s): D64.9 - Anemia, unspecified Is this a current diagnosis for this admission?: Yes Plan: Iron deficiency anemia: Will continue iron replacement. (9) Hyponatremia Is this a current diagnosis for this admission?: Yes Plan: Resolved. (10) Hypertension Qualifiers: Hypertension type: essential hypertension Qualified Code(s): I10 - Essential (primary) hypertension Is this a current diagnosis for this admission?: Yes Plan: stable. (11) Sacral decubitus ulcer, stage IV Is this a current diagnosis for this admission?: Yes Plan: Complicated by right thigh abscess E. coli: Will continue Zosyn . (12) Complication, suprapubic catheter obstruction Qualifiers: Encounter type: subsequent encounter Qualified Code(s): T83.090D - Other mechanical complication of cystostomy catheter, subsequent encounter Is this a current diagnosis for this admission?: Yes Plan: Resolved (13) Functional quadriplegia Is this a current diagnosis for this admission?: Yes Plan: Supportive care. (14) Vesicocutaneous fistula Is this a current diagnosis for this admission?: Yes Plan: Ruled Out (15) Large right ischial Decubits ulcer Is this a current diagnosis for this admission?: Yes Plan: S/P I and D Right thigh abscess E. coli: Will continue IV antibiotics. (16) Right Intramuscular Abscess Is this a current diagnosis for this admission?: Yes Plan: With massive tissue necrosis status post I/D: Will continue current antibiotics. (17) Volume overload Is this a current diagnosis for this admission?: Yes Plan: Resolved. (18) DVT prophylaxis Is this a current diagnosis for this admission?: Yes Plan: Heparin (19) Full code status Is this a current diagnosis for this admission?: Yes - Time Time Spent with patient: 15-24 minutes
[2017-06-02] MEDS ORDERED: DILTIAZEM HCL 180 MG CAPSULE.CR PO ONE (18:00)
[2017-06-02] MEDS ORDERED: METOPROLOL TARTRATE PF/INJ 5 MG/5 ML SDV IV ONE (18:51)
--- NOTE | 2017-06-02 20:52 | PDOC PROGRESS REPORT ---
Subjective Progress Note for:: 06/02/17 Subjective:: patient had repeat debridement done yesterday. Reason For Visit: ACUTE ON CHRONIC DECUBITIS ULCER INFECTION Physical Exam Vital Signs: Temp Pulse Resp BP Pulse Ox 99.8 F 131 H 16 118/72 95 06/02/17 16:18 06/02/17 16:18 06/02/17 16:18 06/02/17 16:18 06/02/17 16:18 Intake & Output 06/01/17 06/02/17 06/03/17 06:59 06:59 06:59 Intake Total 2958 2276 1830 Output Total 3761 5650 2100 Balance -4449 -4024 -270 Weight 93.6 kg 88.1 kg General appearance: PRESENT: no acute distress Head exam: PRESENT: atraumatic, normocephalic Neck exam: ABSENT: carotid bruit, JVD, lymphadenopathy, thyromegaly Respiratory exam: PRESENT: clear to auscultation fabio. ABSENT: rales, rhonchi, wheezes Cardiovascular exam: PRESENT: RRR. ABSENT: diastolic murmur, rubs, systolic murmur GI/Abdominal exam: PRESENT: normal bowel sounds, soft. ABSENT: distended, guarding, mass, organolmegaly, rebound, tenderness Rectal exam: PRESENT: other - right gluteal decubitus appears clean generally, no necrotic tissue. undermined laterally to about a 5cm depth from 2 to 5 '0' clock Extremities exam: PRESENT: other - flexion contractures of both lower extremities Musculoskeletal exam: PRESENT: deformity Neurological exam: PRESENT: alert, awake, oriented to person, oriented to place , oriented to time, oriented to situation, CN II-XII grossly intact, other - paraplegic Results Laboratory Results: 06/02/17 04:42 06/02/17 04:42 06/02/17 06/02/17 04:42 04:42 WBC 9.4 RBC 3.77 Hgb 7.9 L Hct 25.7 L MCV 68 L MCH 20.8 L MCHC 30.6 L RDW 27.8 H Plt Count 571 H Seg Neutrophils % Not Reportable Lymphocytes % Not Reportable Monocytes % Not Reportable Eosinophils % Not Reportable Basophils % Not Reportable Absolute Neutrophils Not Reportable Absolute Lymphocytes Not Reportable Absolute Monocytes Not Reportable Absolute Eosinophils Not Reportable Absolute Basophils Not Reportable Sodium 142.7 Potassium 3.9 Chloride 108 H Carbon Dioxide 27 Anion Gap 8 BUN 8 Creatinine 1.09 Est GFR ( Amer) > 60 Est GFR (Non-Af Amer) 50 L Glucose 77 Calcium 8.7 Magnesium 2.0 Total Bilirubin 0.2 AST 12 L ALT 18 Alkaline Phosphatase 127 H Total Protein 4.9 L Albumin 2.3 L 05/27/17 18:56 Blood Blood Culture - Final NO GROWTH IN 5 DAYS Impressions: Pelvis CT 05/29/17 15:02 IMPRESSION: Large right ischial decubitus ulcer with 10 x 3 cm intramuscular abscess extending into the posterior upper thigh along the hamstring muscles. Contracted bladder around a Glover catheter balloon and bladder stones. Upon filling of the suprapubic catheter and bladder with contrast, there was spillage of contrast through the patient's urethra onto the perineum. No vesicoureteral reflux or extravasation from the bladder. Guidance Fluoroscopy 05/30/17 00:00 IMPRESSION: SUCCESSFUL PLACEMENT OF A 5 FR DUAL LUMEN 35 CM PICC IN THE RIGHT BASILIC VEIN. Interventional Vascular Procedure 05/30/17 00:00 IMPRESSION: SUCCESSFUL PLACEMENT OF A 5 FR DUAL LUMEN 35 CM PICC IN THE RIGHT BASILIC VEIN. PICC Line Insertion 05/30/17 08:00 IMPRESSION: SUCCESSFUL PLACEMENT OF A 5 FR DUAL LUMEN 35 CM PICC IN THE RIGHT BASILIC VEIN. Assessment & Plan - Diagnosis (1) Decubitus ulcer, stage 2 with infection Is this a current diagnosis for this admission?: Yes (2) Paraplegia Is this a current diagnosis for this admission?: Yes (3) Anemia Qualifiers: Anemia type: unspecified type Qualified Code(s): D64.9 - Anemia, unspecified Is this a current diagnosis for this admission?: Yes - Plan Summary Plan Summary: will apply wound vac to the ulcer DC planning with home wound vac.
[2017-06-03] MEDS: NORMAL SALINE 10 ML SDV (AFTER EACH USE) IV PRN ×2 (00:32→23:53)
[2017-06-03] MEDS: HEPARIN SOD (PORCINE) 5,000 UNIT/ML 1 ML SYRINGE SUBCUT SCH ×2 (05:33→17:37)
[2017-06-03] MEDS: LANSOPRAZOLE 30 MG TAB.RAP.DR PO SCH (05:33)
[2017-06-03] MEDS: DILTIAZEM HCL 180 MG CAPSULE.CR PO SCH ×2 (05:34→17:17)
[2017-06-03] MEDS: PIPERACILLIN SODIUM/TAZOBACTAM 3.375 GM in NORMAL SALINE 100 ML IV SCH ×4 (05:38→23:49)
[2017-06-03 06:22] LABS: ALANINE AMINOTRANSFERASE 22 U/L (9-52); ALBUMIN 2.3 g/dL (3.5-5.0); ALKALINE PHOSPHATASE 126 U/L (38-126); ANION GAP 7 (5-19); ASPARTATE AMINO TRANSFERASE 9 U/L (14-36); BILIRUBIN,DIRECT 0.2 mg/dL (0.0-0.4); BILIRUBIN,TOTAL 0.2 mg/dL (0.2-1.3); BLOOD UREA NITROGEN 8 mg/dL (7-20); CALCIUM 8.9 mg/dL (8.4-10.2); CARBON DIOXIDE 27 mmol/L (22-30); CHLORIDE 108 mmol/L (98-107); GLUCOSE 85 mg/dL (75-110); POTASSIUM 3.6 mmol/L (3.6-5.0); SODIUM 141.7 mmol/L (137-145); TOTAL PROTEIN 5.1 g/dL (6.3-8.2)
[2017-06-03 06:28] LABS: ABSOLUTE EOSINOPHILS # (AUTO) 0.1 10^3/uL (0.0-0.6); ABSOLUTE LYMPHOCYTES (AUTO) 1.3 10^3/uL (0.5-4.7); ABSOLUTE MONOCYTES (AUTO) 0.8 10^3/uL (0.1-1.4); ABSOLUTE NEUT (AUTO) 7.5 10^3/uL (1.7-8.2); BASOPHILS % (AUTO) 0.2 % (0-2); EOSINOPHILS % (AUTO) 1.1 % (0-6); HEMATOCRIT 24.4 % (36.0-47.0); LYMPHOCYTES % (AUTO) 13.8 % (13-45); MEAN CORPUSCULAR HEMOGLOBIN 21.3 pg (27.0-33.4); MEAN CORPUSCULAR HGB CONC 31.2 g/dL (32.0-36.0); MEAN CORPUSCULAR VOLUME 68 fl (80-97); MONOCYTES % (AUTO) 8.3 % (3-13); PLATELET COUNT 617 10^3/uL (150-450); RED BLOOD COUNT 3.57 10^6/uL (3.72-5.28); RED CELL DISTRIBUTION WIDTH 27.4 % (11.5-14.0); SEGMENTED NEUTROPHILS % (AUTO) 76.6 % (42-78); TOTAL CELLS COUNTED % (AUTO) 100 %; WHITE BLOOD COUNT 9.7 10^3/uL (4.0-10.5)
[2017-06-03 06:46] LABS: HEMOGLOBIN 7.6 g/dL (12.0-15.5)
[2017-06-03 07:04] LABS: ANISOCYTOSIS 4+; HYPOCHROMASIA 3+; POIKILOCYTOSIS 3+
[2017-06-03 07:05] LABS: POLYCHROMASIA SLIGHT
[2017-06-03 07:06] LABS: SCHISTOCYTES 1+; TARGET CELLS SLIGHT
[2017-06-03 07:07] LABS: OVALOCYTES 1+
[2017-06-03 07:08] LABS: PLATELET COMMENT ADEQUATE; TEAR DROP CELLS SLIGHT
[2017-06-03] MEDS: FERROUS SULFATE 325 MG TABLET PO SCH ×2 (09:35→17:17)
[2017-06-03] MEDS: NORMAL SALINE 10 ML SDV (SCHEDULED) IV SCH ×2 (09:37→22:19)
[2017-06-03] MEDS: IPRATROPIUM/ALBUTEROL 0.5-2.5 MG/3 ML AMPUL NEB PRN (10:58)
[2017-06-03] MEDS ORDERED: BISACODYL 10 MG SUPP.RECT PR PRN (12:39)
--- NOTE | 2017-06-03 17:42 | PDOC PROGRESS REPORT ---
Subjective Progress Note for:: 06/03/17 Subjective:: The patient is resting in her bed. She is doing quite well. Her wound VAC is in place. Family is requesting a transfer to a skilled facility during her wound VAC treatment. The patient states that the community planner was in the room earlier today so efforts are underway. Overall she denies fever chills no chest pain, shortness of breath or cough. She does state that she does not have much of an appetite and gets full quite easily. She has had no abdominal pain. She had one episode of nausea yesterday but none today. She has not had any black or dark stools. No john bloody stools. No urinary complaints Reason For Visit: ACUTE ON CHRONIC DECUBITIS ULCER INFECTION Physical Exam Vital Signs: Temp Pulse Resp BP Pulse Ox 98.8 F 97 18 116/58 L 96 06/03/17 08:36 06/03/17 11:01 06/03/17 11:01 06/03/17 08:36 06/03/17 11:01 Intake & Output 06/02/17 06/03/17 06/04/17 06:59 06:59 06:59 Intake Total 2276 2151 300 Output Total 5650 2800 Balance -3374 -649 300 Weight 88.1 kg 89.7 kg General appearance: PRESENT: no acute distress, well-developed, well-nourished Head exam: PRESENT: atraumatic Ear exam: PRESENT: normal external ear exam Neck exam: ABSENT: carotid bruit, JVD, lymphadenopathy, thyromegaly Respiratory exam: PRESENT: clear to auscultation fabio. ABSENT: rales, rhonchi, wheezes Cardiovascular exam: PRESENT: irregular rhythm, other - She is rate controlled. ABSENT: diastolic murmur, rubs, systolic murmur, tachycardia Pulses: PRESENT: normal dorsalis pedis pul GI/Abdominal exam: PRESENT: normal bowel sounds, soft. ABSENT: distended, guarding, mass, organolmegaly, rebound, tenderness Rectal exam: PRESENT: deferred Extremities exam: PRESENT: full ROM. ABSENT: calf tenderness, clubbing, pedal edema Neurological exam: PRESENT: alert, awake, oriented to person, oriented to place , oriented to time, oriented to situation, CN II-XII grossly intact. ABSENT: motor sensory deficit Psychiatric exam: PRESENT: appropriate affect, normal mood. ABSENT: homicidal ideation, suicidal ideation Skin exam: PRESENT: other - She has a wound VAC in place Results Laboratory Results: 06/03/17 05:32 06/03/17 05:32 06/03/17 06/03/17 05:32 05:32 WBC 9.7 RBC 3.57 L Hgb 7.6 L Hct 24.4 L MCV 68 L MCH 21.3 L MCHC 31.2 L RDW 27.4 H Plt Count 617 H Seg Neutrophils % 76.6 Lymphocytes % 13.8 Monocytes % 8.3 Eosinophils % 1.1 Basophils % 0.2 Absolute Neutrophils 7.5 Absolute Lymphocytes 1.3 Absolute Monocytes 0.8 Absolute Eosinophils 0.1 Absolute Basophils 0.0 Sodium 141.7 Potassium 3.6 Chloride 108 H Carbon Dioxide 27 Anion Gap 7 BUN 8 Creatinine 1.09 Est GFR ( Amer) > 60 Est GFR (Non-Af Amer) 50 L Glucose 85 Calcium 8.9 Total Bilirubin 0.2 AST 9 L ALT 22 Alkaline Phosphatase 126 Total Protein 5.1 L Albumin 2.3 L Impressions: Pelvis CT 05/29/17 15:02 IMPRESSION: Large right ischial decubitus ulcer with 10 x 3 cm intramuscular abscess extending into the posterior upper thigh along the hamstring muscles. Contracted bladder around a Glover catheter balloon and bladder stones. Upon filling of the suprapubic catheter and bladder with contrast, there was spillage of contrast through the patient's urethra onto the perineum. No vesicoureteral reflux or extravasation from the bladder. Guidance Fluoroscopy 05/30/17 00:00 IMPRESSION: SUCCESSFUL PLACEMENT OF A 5 FR DUAL LUMEN 35 CM PICC IN THE RIGHT BASILIC VEIN. Interventional Vascular Procedure 05/30/17 00:00 IMPRESSION: SUCCESSFUL PLACEMENT OF A 5 FR DUAL LUMEN 35 CM PICC IN THE RIGHT BASILIC VEIN. PICC Line Insertion 05/30/17 08:00 IMPRESSION: SUCCESSFUL PLACEMENT OF A 5 FR DUAL LUMEN 35 CM PICC IN THE RIGHT BASILIC VEIN. Assessment & Plan - Diagnosis (1) Sepsis Qualifiers: Sepsis type: sepsis due to unspecified organism Qualified Code(s): A41.9 - Sepsis, unspecified organism Is this a current diagnosis for this admission?: Yes Plan: Present on admission secondary to bacteremia and stage IV decubitus ulcer. (2) Sacral decubitus ulcer, stage IV Is this a current diagnosis for this admission?: Yes Plan: She has had surgical debridement of all of her wounds. Currently stable. (3) Atrial fibrillation with rapid ventricular response Is this a current diagnosis for this admission?: Yes Plan: She is no longer on IV Cardizem. On an oral regimen and doing well. She is rate controlled (4) Complication, suprapubic catheter obstruction Qualifiers: Encounter type: subsequent encounter Qualified Code(s): T83.090D - Other mechanical complication of cystostomy catheter, subsequent encounter Is this a current diagnosis for this admission?: Yes Plan: Resolved (5) Large right ischial Decubits ulcer Is this a current diagnosis for this admission?: Yes Plan: Currently with wound VAC in place and doing well (6) Right Intramuscular Abscess Is this a current diagnosis for this admission?: Yes Plan: Status post surgical debridement. She has a wound VAC in place and doing quite well (7) Anemia Is this a current diagnosis for this admission?: Yes Plan: She has anemia that is multifactorial in nature secondary to iron deficiency, chronic disease, hemodilution and multiple blood draws. At this point she has no evidence of john bleeding. Her hemoglobin restricted down to 7.6. She has been receiving p.o. iron supplementation. I will give her a dose of IV iron. She does admit to being full quite easily. I do not believe we need to do an aggressive GI workup here in the hospital that she likely should have one as an outpatient. (8) Constipation Is this a current diagnosis for this admission?: Yes Plan: Resolved (9) Hyponatremia Is this a current diagnosis for this admission?: Yes Plan: Resolved (10) Functional quadriplegia Is this a current diagnosis for this admission?: Yes Plan: Resolved (11) Diastolic congestive heart failure Is this a current diagnosis for this admission?: Yes Plan: Currently euvolemic (12) UTI (urinary tract infection) Qualifiers: Urinary tract infection type: catheter-associated UTI Indwelling urinary catheter type: indwelling urethral catheter Is this a current diagnosis for this admission?: Yes Plan: Ruled out (13) Vesicocutaneous fistula Is this a current diagnosis for this admission?: Yes Plan: Ruled out (14) Full code status Is this a current diagnosis for this admission?: Yes - Time Time Spent with patient: 25-34 minutes - Inpatient Certification Medical Necessity: Other - Inpatient hospitalization remains necessary for disposition. It is my understanding that the discharge planners are in the process of finding her skilled facility to go while her wounds healed. She will be transitioned to a facility as soon as a bed is found.
[2017-06-03] MEDS ORDERED: IRON SUCROSE COMPLEX INJ/PF 100 MG/5 ML SDV IV ONE ×2 (19:00→22:00)
[2017-06-04] MEDS: LANSOPRAZOLE 30 MG TAB.RAP.DR PO SCH (05:43)
[2017-06-04] MEDS: HEPARIN SOD (PORCINE) 5,000 UNIT/ML 1 ML SYRINGE SUBCUT SCH (05:43)
[2017-06-04] MEDS: DILTIAZEM HCL 180 MG CAPSULE.CR PO SCH ×2 (05:43→18:29)
[2017-06-04] MEDS: NORMAL SALINE 10 ML SDV (AFTER EACH USE) IV PRN ×2 (05:44→10:23)
[2017-06-04 06:18] LABS: RED BLOOD COUNT 3.71 10^6/uL (3.72-5.28); TOTAL CELLS COUNTED % (AUTO) 100 %
[2017-06-04 06:22] LABS: ABSOLUTE BASOPHILS # (AUTO) 0.1 10^3/uL (0.0-0.2); ABSOLUTE EOSINOPHILS # (AUTO) 0.2 10^3/uL (0.0-0.6); ABSOLUTE MONOCYTES (AUTO) 0.8 10^3/uL (0.1-1.4); ABSOLUTE NEUT (AUTO) 6.4 10^3/uL (1.7-8.2); BASOPHILS % (AUTO) 0.8 % (0-2); HEMATOCRIT 25.2 % (36.0-47.0); LYMPHOCYTES % (AUTO) 11.4 % (13-45); MEAN CORPUSCULAR HEMOGLOBIN 21.4 pg (27.0-33.4); MEAN CORPUSCULAR HGB CONC 31.4 g/dL (32.0-36.0); MEAN CORPUSCULAR VOLUME 68 fl (80-97); MONOCYTES % (AUTO) 9.8 % (3-13); PLATELET COUNT 629 10^3/uL (150-450); RED CELL DISTRIBUTION WIDTH 27.4 % (11.5-14.0); WHITE BLOOD COUNT 8.5 10^3/uL (4.0-10.5)
[2017-06-04 06:31] LABS: ANION GAP 6 (5-19); BLOOD UREA NITROGEN 6 mg/dL (7-20); CARBON DIOXIDE 28 mmol/L (22-30); CHLORIDE 108 mmol/L (98-107); GLUCOSE 77 mg/dL (75-110); MAGNESIUM 1.9 mg/dL (1.6-2.3); POTASSIUM 3.6 mmol/L (3.6-5.0)
[2017-06-04 06:53] LABS: HEMOGLOBIN 7.9 g/dL (12.0-15.5)
[2017-06-04 06:58] LABS: ANISOCYTOSIS 3+; PLATELET COMMENT INCREASED; POLYCHROMASIA 1+
[2017-06-04 06:59] LABS: HYPOCHROMASIA 3+
[2017-06-04] MEDS: FERROUS SULFATE 325 MG TABLET PO SCH ×2 (10:22→18:29)
[2017-06-04] MEDS: NORMAL SALINE 10 ML SDV (SCHEDULED) IV SCH ×2 (10:23→22:25)
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
--- NOTE | 2017-06-04 20:47 | PDOC PROGRESS REPORT ---
Subjective Progress Note for:: 06/04/17 Subjective:: No new issues with regards to the decubitus - wound vac on. Reason For Visit: ACUTE ON CHRONIC DECUBITIS ULCER INFECTION Physical Exam Vital Signs: Temp Pulse Resp BP Pulse Ox 98.1 F 78 17 112/54 L 95 06/04/17 15:26 06/04/17 19:00 06/04/17 16:39 06/04/17 15:26 06/04/17 16:39 Intake & Output 06/03/17 06/04/17 06/05/17 06:59 06:59 06:59 Intake Total 2151 1341 592 Output Total 2800 1950 750 Balance -649 -609 -158 Weight 89.7 kg 88.6 kg Respiratory exam: PRESENT: clear to auscultation fabio. ABSENT: rales, rhonchi, wheezes Cardiovascular exam: PRESENT: RRR. ABSENT: diastolic murmur, rubs, systolic murmur GI/Abdominal exam: PRESENT: normal bowel sounds, soft, other - suprapubic cystostomy in place. ABSENT: distended, guarding, mass, organolmegaly, rebound , tenderness Neurological exam: PRESENT: alert, awake, oriented to person, oriented to place , oriented to time, oriented to situation, CN II-XII grossly intact, motor sensory deficit, other - paraplegic Skin exam: PRESENT: other - right gluteal decubitus ulcer with wound vac in place Results Laboratory Results: 06/04/17 05:50 06/04/17 05:50 06/04/17 06/04/17 05:50 05:50 WBC 8.5 RBC 3.71 L Hgb 7.9 L Hct 25.2 L MCV 68 L MCH 21.4 L MCHC 31.4 L RDW 27.4 H Plt Count 629 H Seg Neutrophils % 76.0 Lymphocytes % 11.4 L Monocytes % 9.8 Eosinophils % 2.0 Basophils % 0.8 Absolute Neutrophils 6.4 Absolute Lymphocytes 1.0 Absolute Monocytes 0.8 Absolute Eosinophils 0.2 Absolute Basophils 0.1 Sodium 142.0 Potassium 3.6 Chloride 108 H Carbon Dioxide 28 Anion Gap 6 BUN 6 L Creatinine 1.03 Est GFR ( Amer) > 60 Est GFR (Non-Af Amer) 53 L Glucose 77 Calcium 9.0 Magnesium 1.9 Impressions: Pelvis CT 05/29/17 15:02 IMPRESSION: Large right ischial decubitus ulcer with 10 x 3 cm intramuscular abscess extending into the posterior upper thigh along the hamstring muscles. Contracted bladder around a Glover catheter balloon and bladder stones. Upon filling of the suprapubic catheter and bladder with contrast, there was spillage of contrast through the patient's urethra onto the perineum. No vesicoureteral reflux or extravasation from the bladder. Guidance Fluoroscopy 05/30/17 00:00 IMPRESSION: SUCCESSFUL PLACEMENT OF A 5 FR DUAL LUMEN 35 CM PICC IN THE RIGHT BASILIC VEIN. Interventional Vascular Procedure 05/30/17 00:00 IMPRESSION: SUCCESSFUL PLACEMENT OF A 5 FR DUAL LUMEN 35 CM PICC IN THE RIGHT BASILIC VEIN. PICC Line Insertion 05/30/17 08:00 IMPRESSION: SUCCESSFUL PLACEMENT OF A 5 FR DUAL LUMEN 35 CM PICC IN THE RIGHT BASILIC VEIN. Assessment & Plan - Diagnosis (1) Decubitus ulcer, stage 2 with infection Is this a current diagnosis for this admission?: Yes (2) Paraplegia Is this a current diagnosis for this admission?: Yes (3) Anemia Qualifiers: Anemia type: unspecified type Qualified Code(s): D64.9 - Anemia, unspecified Is this a current diagnosis for this admission?: Yes - Plan Summary Plan Summary: Patient can be discharged with wound vac care F/U at wound care center. Surgery will sign off for now.
[2017-06-05] MEDS: DILTIAZEM HCL 180 MG CAPSULE.CR PO SCH ×2 (05:08→18:07)
[2017-06-05] MEDS: LANSOPRAZOLE 30 MG TAB.RAP.DR PO SCH (05:08)
[2017-06-05] MEDS: FERROUS SULFATE 325 MG TABLET PO SCH ×2 (08:48→18:07)
[2017-06-05] MEDS: NORMAL SALINE 10 ML SDV (SCHEDULED) IV SCH (08:48)
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
--- NOTE | 2017-06-05 14:57 | PDOC DISCHARGE SUMMARY ---
General - Admit/Disc Date/PCP Admission Date/Primary Care Provider: 05/27/17 17:47 JANETTE JACOBS MD Discharge Date: 06/05/17 - Discharge Diagnosis (1) Anemia Is this a current diagnosis for this admission?: Yes (2) Atrial fibrillation with rapid ventricular response Is this a current diagnosis for this admission?: Yes (3) Complication, suprapubic catheter obstruction Is this a current diagnosis for this admission?: Yes (4) Right Intramuscular Abscess Is this a current diagnosis for this admission?: Yes (5) Sacral decubitus ulcer, stage IV Is this a current diagnosis for this admission?: Yes (6) Sepsis Is this a current diagnosis for this admission?: Yes - Additional Information Resuscitation Status: Full Code Discharge Diet: Cardiac Discharge Activity: Activity As Tolerated Prescriptions: Aspirin [Ecotrin 325 mg EC Tablet] 325 mg PO DAILY 30 Days #30 tabec Ferrous Sulfate [Feosol 325 mg Tablet] 325 mg PO BIDPCBS 30 Days #60 tablet Home Medications: Diltiazem HCl [Diltiazem ER] 180 mg PO Q12 05/27/17 Magnesium Oxide [Mag-Ox 400 mg Tablet] 400 mg PO DAILY 05/27/17 Mirabegron [Myrbetriq] 50 mg PO DAILY 05/27/17 Omeprazole Magnesium [Prilosec Otc] 20 mg PO DAILY 05/27/17 Ondansetron [Zofran Odt 4 mg Tablet] 4 mg PO Q6HP PRN 05/27/17 Oxybutynin Chloride [Ditropan 5 mg Tablet] 5 mg PO DAILY 05/27/17 Potassium Chloride [Klor-Con 10] 10 meq PO Q12 05/27/17 Acetaminophen [Tylenol 325 mg Tablet] 650 mg PO Q4HP PRN tablet 06/05/17 Aspirin [Ecotrin 325 mg EC Tablet] 325 mg PO DAILY 30 Days #30 tabec 06/05/17 Bisacodyl [Dulcolax 10 mg Supp.rect] 10 mg TX DAILYP PRN supp.rect 06/05/17 Ferrous Sulfate [Feosol 325 mg Tablet] 325 mg PO BIDPCBS 30 Days #60 tablet History of Present Illness History of Present Illness: JAMEL PHILLIPS is a 67 year old female Hospital Course Hospital Course: The patient presented with evidence of sepsis on admission secondary to a large right thigh abscess. She also had a large right open wound which required surgical debridement on 05/29/17. The patient was placed on Zosyn. Initially, 1 out of 2 blood cultures was concerning for Streptococcus viridans, but, this was ruled out. The patient had 1 of 2 blood cultures growing staph epidermidis which was likely contaminant. The patient's atrial fibrillation was treated with diltiazem. Please note that her Eliquis was discontinued secondary to severe anemia. She will be placed on aspirin at the time of discharge. She is receiving oral iron therapy. He received 1 dose of iron intravenously on 2017. During this hospitalization there was concern for a vesicocutaneous fistula. This was ruled out by urology. The patient will need ongoing a urology consultation after discharge. Review of culture data during this hospitalization again shows 1 of 2 blood cultures on admission growing Staphylococcus epidermidis from 05/27/2017. This is considered a contaminant. The sacral decubitus ulcer wound culture grew E. coli. The culture from the buttocks abscess grew E. coli, Bacteroides fragilis and Peptostreptococcus as well as a clostridium species which was not perfringens. The patient will be discharged with a wound VAC in place. Inferior to the major area of abscess she has a smaller abscess. This is currently being treated with wet-to-dry dressings. She will need ongoing dressing changes at the facility. She will need to follow-up with the surgery clinic in 1-2 weeks. Physical Exam Vital Signs: Temp Pulse Resp BP Pulse Ox 99.2 F 80 16 129/66 H 94 06/05/17 07:55 06/05/17 11:24 06/05/17 11:24 06/05/17 07:55 06/05/17 11:24 Intake & Output 06/04/17 06/05/17 06/06/17 06:59 06:59 06:59 Intake Total 1341 1302 Output Total 1950 7630 Balance -606 -237 Weight 88.6 kg 91.1 kg Additional comments: The patient is a middle-aged black female. She is not in any distress. Her cognition and mentation are appropriate. Her facial appearance is unremarkable. Her lungs are clear to auscultation bilaterally. Her cardiac exam is regular without murmurs, gallops or rubs. The abdomen is soft and flat. The abdomen is obese. Bowel sounds are present in the lower quadrants. She does not have guarding or rebound noted and there are no hernias or masses present. The sacral wound is covered with a wound VAC. She has an wound inferior to this that was evaluated and debrided and the margins of the wound are clean. Does not appear to be any purulence. The patient's lower extremities are very thin with muscular atrophy but no additional skin lesions are present. Results Laboratory Results: 06/04/17 05:50 06/04/17 05:50 Impressions: Pelvis CT 05/29/17 15:02 IMPRESSION: Large right ischial decubitus ulcer with 10 x 3 cm intramuscular abscess extending into the posterior upper thigh along the hamstring muscles. Contracted bladder around a Glover catheter balloon and bladder stones. Upon filling of the suprapubic catheter and bladder with contrast, there was spillage of contrast through the patient's urethra onto the perineum. No vesicoureteral reflux or extravasation from the bladder. Guidance Fluoroscopy 05/30/17 00:00 IMPRESSION: SUCCESSFUL PLACEMENT OF A 5 FR DUAL LUMEN 35 CM PICC IN THE RIGHT BASILIC VEIN. Interventional Vascular Procedure 05/30/17 00:00 IMPRESSION: SUCCESSFUL PLACEMENT OF A 5 FR DUAL LUMEN 35 CM PICC IN THE RIGHT BASILIC VEIN. PICC Line Insertion 05/30/17 08:00 IMPRESSION: SUCCESSFUL PLACEMENT OF A 5 FR DUAL LUMEN 35 CM PICC IN THE RIGHT BASILIC VEIN. Plan Discharge Plan: [facility] 2. Patient will need follow-up laboratory testing in 1 week to check CBC and chemistry panel to reevaluate anemia and renal function. 3. Patient will need follow-up with general surgery in 1-2 weeks to reevaluate the extensive wounds and reevaluate the need for wound VAC. 4. Patient will need follow-up with urology after discharge. Time Spent: Greater than 30 Minutes
[2017-06-05] MEDS ORDERED: ASPIRIN 325 MG TABLET, ENT COATED PO SCH (18:00)
[2017-06-05 20:18] VITALS: BP 118/47
== END 2017-06-05 21:05 | DRG 853 ==
LOC: ER 14:26 → EH 17:47 → 5 20:45 → 3N 05-29 23:35
PROVIDERS: ADMIT Emergency Medicine; ATTEND Emergency Medicine
PROC: 30233N1 Transfusion of Nonautologous Red Blood Cells into Peripheral Vein, Percutaneous Approach (ICD-10-PCS; 2017-05-28)
PROC: 0JBL0ZZ Excision of Right Upper Leg Subcutaneous Tissue and Fascia, Open Approach (ICD-10-PCS; 2017-05-29)
PROC: 02HV33Z Insertion of Infusion Device into Superior Vena Cava, Percutaneous Approach (ICD-10-PCS; 2017-05-30)
PROC: B5181ZA Fluoroscopy of Superior Vena Cava using Low Osmolar Contrast, Guidance (ICD-10-PCS; 2017-05-30)
PROC: B548ZZA Ultrasonography of Superior Vena Cava, Guidance (ICD-10-PCS; 2017-05-30)
PROC: 3E0F73Z Introduction of Anti-inflammatory into Respiratory Tract, Via Natural or Artificial Opening (ICD-10-PCS; 2017-05-31)
PROC: 0JB70ZZ Excision of Back Subcutaneous Tissue and Fascia, Open Approach (ICD-10-PCS; principal; 2017-06-01)
DX: A41.9 Sepsis, unspecified organism (principal); L89.154 Pressure ulcer of sacral region, stage 4; L89.44 Pressure ulcer of contiguous site of back, buttock and hip, stage 4; L02.415 Cutaneous abscess of right lower limb; G82.20 Paraplegia, unspecified; T83.090A Other mechanical complication of cystostomy catheter, initial encounter; N30.00 Acute cystitis without hematuria; E87.1 Hypo-osmolality and hyponatremia; D64.9 Anemia, unspecified; I48.2 Chronic atrial fibrillation; T83.091A Other mechanical complication of indwelling urethral catheter, initial encounter; B96.20 Unspecified Escherichia coli [E. coli] as the cause of diseases classified elsewhere; B96.6 Bacteroides fragilis [B. fragilis] as the cause of diseases classified elsewhere; I10 Essential (primary) hypertension; F32.9 Major depressive disorder, single episode, unspecified; E86.0 Dehydration; N21.0 Calculus in bladder; E66.01 Morbid (severe) obesity due to excess calories; Z68.29 Body mass index [BMI] 29.0-29.9, adult; Z88.7 Allergy status to serum and vaccine; Z90.49 Acquired absence of other specified parts of digestive tract; Z90.710 Acquired absence of both cervix and uterus; Z87.891 Personal history of nicotine dependence; Z79.899 Other long term (current) drug therapy; Z80.9 Family history of malignant neoplasm, unspecified; Z81.1 Family history of alcohol abuse and dependence
CPT/HCPCS: 300; 36415; 36430; 36569; 71045; 72193; 76937; 77001; 80048; 80053; 80202; 81001; 82565; 82607; 82728; 82746; 83036; 83540; 83550; 83605; 83735; 84466; 85025; 85027; 85045; 86850; 86900; 86901; 86920; 87040; 87070; 87075; 87077; 87186; 87205; 87804; 88305; 88312; 93005; 93010; 94640; 96361; 96374; 96375; 99285; J0131; J1100; J1642; J1644; J1756; J1940; J2250; J2370; J2405; J2543; J2704; J3010; J3370; J3475; J3490; J7030; J7060; J7120; J7620; P9016

== ENCOUNTER 2019-04-17 12:56 | Emergency (ER) | payer MEDICARE, MEDICAID ==
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
[2019-04-17 16:02] VITALS: BP 132/56
[2019-04-17 16:14] LABS: AMORPHOUS SEDIMENT,URINE TRACE /HPF; APPEARANCE,URINE CLOUDY; BILIRUBIN,URINE NEGATIVE (NEGATIVE); COLOR,URINE YELLOW; GLUCOSE, URINE NEGATIVE (NEGATIVE); KETONES,URINE NEGATIVE (NEGATIVE); PROTEIN,URINE 100 mg/dL (NEGATIVE); TRIPLE PHOSPHATE CRYSTAL,URINE FEW /HPF; URINE SPECIFIC GRAVITY 1.017
== END 2019-04-17 16:10 | disposition home or self-care (01) ==
LOC: ER 12:56
DX: T83.010A Breakdown (mechanical) of cystostomy catheter, initial encounter (principal); R39.198 Other difficulties with micturition; Z87.891 Personal history of nicotine dependence; I10 Essential (primary) hypertension
CPT/HCPCS: 99284; 51702; 87086; 87088; 81001; 87186; C1758 ×3

== ENCOUNTER 2019-04-18 10:18 | Emergency (ER) | payer MEDICARE, MEDICAID ==
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
[2019-04-18 13:38] VITALS: BP 131/77
== END 2019-04-18 14:06 | disposition home or self-care (01) ==
LOC: ER 10:18
DX: T83.021A Displacement of indwelling urethral catheter, initial encounter (principal); I48.91 Unspecified atrial fibrillation; I10 Essential (primary) hypertension; Z90.49 Acquired absence of other specified parts of digestive tract; Z90.710 Acquired absence of both cervix and uterus
CPT/HCPCS: 99283

== ENCOUNTER 2019-04-19 08:16 | Emergency (ER) | payer MEDICARE, MEDICAID ==
[2019-04-19 08:22] VITALS: BP 135/58
[2019-04-19] MEDS ORDERED: CEPHALEXIN 500 MG CAPSULE PO ONE (09:40)
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
[2019-04-19 10:40] LABS: APPEARANCE,URINE TURBID; BILIRUBIN,URINE NEGATIVE (NEGATIVE); GLUCOSE, URINE NEGATIVE (NEGATIVE); KETONES,URINE TRACE mg/dL (NEGATIVE); LEUKOCYTE ESTERASE,URINE LARGE (NEGATIVE); NITRITE,URINE NEGATIVE (NEGATIVE); PROTEIN,URINE 100 mg/dL (NEGATIVE); TRIPLE PHOSPHATE CRYSTAL,URINE TOO NUMEROUS TO CNT /HPF; URINE SPECIFIC GRAVITY 1.021
[2019-04-19 10:41] LABS: COLOR,URINE YELLOW
== END 2019-04-19 13:06 | disposition home or self-care (01) ==
LOC: ER 08:16
DX: T83.010A Breakdown (mechanical) of cystostomy catheter, initial encounter (principal); Y84.6 Urinary catheterization as the cause of abnormal reaction of the patient, or of later complication, without mention of misadventure at the time of the procedure; N39.0 Urinary tract infection, site not specified; R31.9 Hematuria, unspecified; I10 Essential (primary) hypertension; Z87.891 Personal history of nicotine dependence
CPT/HCPCS: 99283; 87086; 87088; 81001; 87186; C1758; A9270